=== PATIENT | male | born 1970 | race Caucasian/White ===

== ENCOUNTER → 2018-05-21 16:06 | Outpatient (CLI) | payer MEDICARE, SELFPAY ==
--- NOTE | 2018-05-21 16:13 | CT_ITS ---
STUDY: LOW DOSE CT LUNG CANCER SCREENING REASON FOR EXAM: Male, 48 years old. Lung cancer screening. 48 pack-year history of smoking (1.5 pack per day for 32 years). RADIATION DOSAGE (If Supplied By Facility): CTDIvol = ( 4.02 ) mGy, DLP = ( 142.45 ) mGycm TECHNIQUE: No contrast was administered. Low dose technique was utilized (average mAS-38 and kVp 120). 1.25 mm axial source images with a slice interval of 1.25-mm were reconstructed in lung windows. Coronal and sagittal 2-D MPR Nodule measured using lung windows on PACS and/or independent workstation with automated measurement of minimum and maximum diameter. Nodule measurement reported as average diameter rounded to the nearest whole number. Growth is defined as an increase ins size of greater than 1.5 mm. COMPARISON: None. FINDINGS: Total lung nodules (excluding granulomas): Right lower lobe posterior basilar noncalcified pulmonary nodule with a greatest dimension of 5.7 mm, series 2 image 147. Solid pulmonary nodule along the left major fissure series 2 image 113, 6 mm. Bilaterally a few additional tiny noncalcified solid pulmonary nodules are present. Emphysema: Mild apical paraseptal emphysema. Generalized hyperlucency with increased AP diameter of the chest suggesting mild underlying COPD. Endobronchial lesion: Aorta: Nondilated aorta, no atherosclerotic plaque. Coronary arteries: Minimal focus of calcification in the proximal LAD. Heart: Normal heart size without effusion. Pulmonary artery: Nondilated central pulmonary arteries. Mediastinal nodes: Normal esophagus. No acute mediastinal or hilar lymphadenopathy. Calcified lymph nodes of the right and left hilum consistent with old granulomatous disease and associated with several calcified pulmonary nodules. Other chest and abdominal findings: There is evidence of hepatic steatosis. Body wall soft tissues, supraclavicular soft tissues and osseous structures exhibit no acute process. CT/Low Dose CT Lung Screening IMPRESSION: There is evidence of old granulomatous disease with multiple calcified pulmonary nodules. There are a few noncalcified solid pulmonary nodules, the largest measuring approximately 6 mm in greatest dimension. Based on size criteria alone, solid pulmonary nodule greater than or equal to 6 mm but less than 8mm, ACR Lung RADS Category 3 (probably benign). Strong likelihood that the noncalcified pulmonary nodules are associated also with the old granulomatous disease, but surveillance imaging is recommended according to the ACR Lung RADS Criteria. Follow-up low dose CT chest screening is recommended in 6 months. IMPORTANT NOTES FOR USE: ACR Lung-RADS Version 1.0 Assessment Categories Release Date: December 30, 2013 Category: Coded 0-4 bases on nodule(s) with highest degree of suspicion. Negative screen is defined as categories 1 and 2; a positive screen is defined as categories 3 and 4. Category 3 and 4A nodules that are unchanged on interval CT should be coded as category 2, and individuals returned to screening in 12 months. Category 4X: Category 3 or 4 nodules with additional imaging findings that increase the suspicion of lung cancer, such as spiculation, GGN that doubles in size in 1 year, enlarged lymph notes, etc. Category Modifiers: S (significant finding unrelated to lung cancer) and C (prior history of treated lung cancer) may be added to the 0-4 Lung-RADS Electronically Signed: Americo Weir, at 18:07 EDT Tel , Service support ,
== END ==
DX: Z12.2 Encounter for screening for malignant neoplasm of respiratory organs (principal); R06.00 Dyspnea, unspecified; Z87.891 Personal history of nicotine dependence
CPT/HCPCS: G0297

== ENCOUNTER → 2018-07-20 16:24 | Outpatient (CLI) | payer MEDICARE, SELFPAY ==
[2018-07-20 18:01] LABS: Thyroid Stim Hormone (TSH) 1.49 uIU/mL (0.358-3.74)
== END ==
PROVIDERS: Referring Provider Clinical Nurse Specialist Acute Care; Visit Provider Clinical Nurse Specialist Acute Care
DX: R63.5 Abnormal weight gain (principal)
CPT/HCPCS: 36415; 82533; 84443

== ENCOUNTER → 2018-07-28 07:02 | Outpatient (CLI) | payer MEDICARE, SELFPAY ==
--- NOTE | 2018-07-28 07:45 | MRI_ITS ---
STUDY: MRI BRAIN WITHOUT CONTRAST REASON FOR EXAM: Male, 48 years old. Headaches. Right supraclinoid aneurysm. Memory changes. History of stroke and aseptic meningitis. TECHNIQUE: Standardized multiplanar fat and water weighted pulse sequences were obtained. COMPARISON: MRI of the brain with and without contrast 03/24/2016. FINDINGS: No restricted diffusion to suspect acute or subacute ischemic infarct. Mild ex vacuo dilatation in the anterior body and frontal horn of the right lateral ventricle secondary to parenchymal loss of the anterior body and head of the right caudate nucleus and parenchymal loss of the right lentiform nucleus. This is chronic and unchanged. The ventricles and cisterns are within normal limits. Small T2 FLAIR white matter hyperintensity foci in the white matter of both frontal lobes and in the left occipital lobe are nonspecific. They were present previously and are unchanged. Normal remaining basal ganglia. Normal thalami. There is no extra-axial fluid accumulation. Normal flow voids within the major intracranial circulation suggesting patency by spin echo criteria. Normal sella turcica, pituitary gland, infundibular stalk, optic chiasm and hypothalamus. Normal tectal plate and pineal gland. Normal midbrain, evy and medulla. Normal cerebellum. Normal basal cisterns. Normal bilateral temporal bones. Normal bilateral internal auditory canals. No demonstrated orbital abnormality, within the constraints of a routine brain study. Normal visualized paranasal sinuses. Normal calvarium and skull base. Normal visualized soft tissue structures. Normal visualized upper cervical spine. MRI/Brain without Contrast IMPRESSION: 1. No MRI evidence of acute or subacute ischemic infarct. 2. Nonspecific white matter T2 FLAIR hyperintensity in the frontal lobes and left occipital lobe. They have not changed in size or number. 3. Parenchymal loss of the anterior body and head of the right caudate nucleus and parenchymal loss of the right lentiform nucleus causing ex vacuo dilatation of the anterior body of the right lateral ventricle and the right frontal horn. 4. No interval change or new findings when compared to 03/24/2016. Electronically Signed: Aguilar Ramos MD at 9:31 EST , Service support ,
--- NOTE | 2018-07-28 07:45 | MRI_ITS ---
STUDY: MRA OF THE HEAD WITHOUT CONTRAST REASON FOR EXAM: Male, 48 years old. Headaches. Right supraclinoid aneurysm. Memory changes. History of stroke and aseptic meningitis. TECHNIQUE: 3-D [id number] (TOF) imaging was performed with MIPs. The study was performed unenhanced. COMPARISON: MRA of the head 03/24/2016. CTA head 05/14/2015. FINDINGS: There is a saccular aneurysm involving the right posterior communicating artery. The aneurysmal sac is laterally directed and measures approximately 5 mm long with a 3 mm wide fundus. There is origin of the right [employer] of the right internal carotid artery. This explains the absence of the right P1 segment. No other intracranial aneurysm. Normal right A1 segment. Developmentally absent left A1 segment. The anterior communicating artery is widely patent and provides the arterial flow to the left A2 segment and the rest of the left QUETA circulation. Nondominant left vertebral artery terminates directly into the left posterior inferior cerebellar artery. This is a developmental variation of normal. Dominant right vertebral artery is widely patent. Normal basilar artery and its branches set. Widely patent left P1 segment and the rest of the left [employer] circulation. Developmentally absent right P1 segment. MRI/MRA Head ONLY without Contrast IMPRESSION: 1. 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 This is unchanged in size or configuration. 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 2. Direct termination of the nondominant left vertebral artery into the left posterior inferior cerebellar artery (PICA). This is a developmental variation of normal and unchanged. 3. Developmentally absent left A1 segment. Widely patent anterior communicating artery provides the main collateral/arterial supply to the left QUETA territory from the right carotid artery. 4. No vaso-occlusive disease of the anterior and posterior intracranial circulation. 5. No interval change when compared to 03/24/2016. Electronically Signed: Aguilar Ramos MD at 10:15 EST , Service support ,
--- NOTE | 2018-07-28 08:30 | MRI_ITS ---
STUDY: MRA NECK WITHOUT CONTRAST REASON FOR EXAM: Male, 48 years old. Headaches. Right supraclinoid aneurysm. Memory changes. History of stroke and aseptic meningitis. TECHNIQUE: Source images were obtained, MIPs were performed. The study was performed unenhanced. COMPARISON: None. FINDINGS: RIGHT CAROTID ARTERIES: Normal right common carotid artery (CCA). Normal right internal carotid bulb. Normal origin of the right internal carotid (ICA) artery without a hemodynamically significant stenosis. Normal visualized cervical portion of the right internal carotid artery. Normal origin of the right external carotid artery (ECA). LEFT CAROTID ARTERIES: Normal left common carotid artery (CCA). Normal left internal carotid bulb. Normal origin of the left internal carotid (ICA) artery without a hemodynamically significant stenosis. Normal visualized cervical portion of the left internal carotid artery. Normal origin of the left external carotid artery (ECA). VERTEBRAL ARTERIES: Normal antegrade flow within the bilateral vertebral artery without a hemodynamically significant stenosis. The left vertebral artery is nondominant and terminates directly into the left posterior inferior cerebellar artery (PICA). MRI/MRA Neck without Contrast IMPRESSION: Normal bilateral cervical carotid and vertebral arteries. Electronically Signed: Aguilar Ramos MD at 10:29 EST , Service support ,
== END ==
PROVIDERS: Referring Provider Clinical Nurse Specialist Acute Care; Visit Provider Clinical Nurse Specialist Acute Care
DX: I67.1 Cerebral aneurysm, nonruptured (principal); R51 Headache
CPT/HCPCS: 70544; 70547; 70551

== ENCOUNTER → 2018-08-06 09:30 | Outpatient (CLI) | payer MEDICARE, SELFPAY ==
--- NOTE | 2018-08-07 10:54 | EEG ---
- Electroencephalogram Date of service 08/07/2018 History EEG is being done in this 48 yr M to rule out seizures EEG Description: This is an 18 channel EEG with 10-20 lead placement system. Bipolar montages, Referential and Circumferential montages were reviewed. Photic stimulation and Hyperventilation were performed. The posterior dominant rhythm is 9 HZ synchronous, symmetric, reacting to eye opening and closing. Photo stimulation elicited normal driving response but no abnormal photoparoxysmal response, Hyperventilation did not elicit any abnormal photoparoxysmal response. Sleep was identified. There is no abnormal background slowing noted. EKG artefact was noted during the record. There was no epileptiform discharges or electrographic seizures noted during this recording. EEG Interpretation This is a normal awake and asleep EEG. There is no epileptiform discharges or electrographic seizures noted during the record.
--- OUTSIDE RECORDS SUMMARY | 2018-09-29 13:36 | XMS RPT_ITS ---
:1970 Author Organization OHIP Care Team Providers Name Role Phone PAVEL TOUSSAINT Attending Unavailable SHAE OROPEZA CNP Primary Care Unavailable [facility] Attending Unavailable [facility] Referring Unavailable [facility] Primary Care Unavailable Romi Arellano Attending Unavailable Romi Arellano Referring Unavailable [facility] Primary Care Unavailable Romi Arellano Attending Unavailable Romi Arellano Referring Unavailable [facility] Primary Care Unavailable Shae Bernal Consulting Unavailable Romi Arellano Attending Unavailable Romi Arellano Referring Unavailable [facility] Primary Care Unavailable Shae Bernal Consulting Unavailable PROBLEMS PROBLEMS No Problem Records FoundPROCEDURES PROCEDURES No Procedure Records FoundRESULTS RESULTS ELECTROENCEPHALOGRAM Observed: 08/21/2018 Status: F Source: [place] 1:04 PM [facility] REPOSITORY [facility] Pulmonary Services/Neurology [address] [place] [address] MR#: [id number] Acct: [id number] Name: DMITRY ROBERTSON Rep #: [id number] : 1970 48 From: Elise Elliott MD Referring Dr: Rmoi Arellano, FITNESS LEADER Status: REG CLI Ordering Dr: Date: Location: PSN Sex: M C - Electroencephalogram Date of service 08/07/2018 History EEG is being done in this 48 yr M to rule out seizures EEG Description: This is an 18 channel EEG with 10-20 lead placement system. Bipolar montages, Referential and Circumferential montages were reviewed. Photic stimulation and Hyperventilation were performed. The posterior dominant rhythm is 9 HZ synchronous, symmetric, reacting to eye opening and closing. Photo stimulation elicited normal driving response but no abnormal photoparoxysmal response, Hyperventilation did not elicit any abnormal photoparoxysmal response. Sleep was identified. There is no abnormal background slowing noted. EKG artefact was noted during the record. There was no epileptiform discharges or electrographic seizures noted during this recording. EEG Interpretation This is a normal awake and asleep EEG. There is no epileptiform discharges or electrographic seizures noted during the record. 08/21/18 1304 <Electronically signed by Elise Elliott MD> Date Elise Elliott MD CC: FITNESS LEADER Romi Arellano; Donn Elliott MD; AICHA CHILD [facility] Date Dictated: 08/07/18 1054 Date Transcribed: 08/07/18 1054 Industrial [employer] Supervisor: CRISTINA Signed BRAIN WITHOUT Observed: 07/28/2018 Status: F Source: [place] CONTRAST 7:30 AM [facility] REPOSITORY [facility] Imaging Services [address] [place] [address] Brain without Contrast MR#: [id number] Acct: [id number] Name: DMITRY ROBERTSON Rep #: [id number] : 1970 M 48 From: Aguilar Ramos MD PCP: AICHA CHILD [facility] Status: REG CLI Study: Brain without Contrast Date of Exam: 07/28/18 Exam# [id number] Ordering Dr: Romi Arellano STUDY: MRI BRAIN WITHOUT CONTRAST REASON FOR EXAM: Male, 48 years old. Headaches. Right supraclinoid aneurysm. Memory changes. History of stroke and aseptic meningitis. TECHNIQUE: Standardized multiplanar fat and water weighted pulse sequences were obtained. COMPARISON: MRI of the brain with and without contrast 03/24/2016. FINDINGS: No restricted diffusion to suspect acute or subacute ischemic infarct. Mild ex vacuo dilatation in the anterior body and frontal horn of the right lateral ventricle secondary to parenchymal loss of the anterior body and head of the right caudate nucleus and parenchymal loss of the right lentiform nucleus. This is chronic and unchanged. The ventricles and cisterns are within normal limits. Small T2 FLAIR white matter hyperintensity foci in the white matter of both frontal lobes and in the left occipital lobe are nonspecific. They were present previously and are unchanged. Normal remaining basal ganglia. Normal thalami. There is no extra-axial fluid accumulation. Normal flow voids within the major intracranial circulation suggesting patency by spin echo criteria. Normal sella turcica, pituitary gland, infundibular stalk, optic chiasm and hypothalamus. Normal tectal plate and pineal gland. Normal midbrain, evy and medulla. Normal cerebellum. Normal basal cisterns. Normal bilateral temporal bones. Normal bilateral internal auditory canals. No demonstrated orbital abnormality, within the constraints of a routine brain study. Normal visualized paranasal sinuses. Normal calvarium and skull base. Normal visualized soft tissue structures. Normal visualized upper cervical spine. MRI/Brain without Contrast IMPRESSION: 1. No MRI evidence of acute or subacute ischemic infarct. 2. Nonspecific white matter T2 FLAIR hyperintensity in the frontal lobes and left occipital lobe. They have not changed in size or number. 3. Parenchymal loss of the anterior body and head of the right caudate nucleus and parenchymal loss of the right lentiform nucleus causing ex vacuo dilatation of the anterior body of the right lateral ventricle and the right frontal horn. 4. No interval change or new findings when compared to 03/24/2016. Electronically Signed: Aguilar Ramos MD at 9:31 EST , Service support , CC: BALTA Arellano; AICHA CHILD [facility] [employer] Supervisor: Signed MRA HEAD ONLY WITHOUT Observed: 07/28/2018 Status: F Source: [place] CONTRAST 7:30 AM [facility] REPOSITORY [facility] Imaging Services [address] [place] [address] MRA Head ONLY without Contrast MR#: [id number] Acct: [id number] Name: DMITRY ROBERTSON Rep #: [id number] : 1970 M 48 From: Aguilar Ramos MD PCP: AICHA CHILD [facility] Status: REG CLI Study: MRA Head ONLY without Contrast Date of Exam: 07/28/18 Exam# [id number] Ordering Dr: Romi Arellano STUDY: MRA OF THE HEAD WITHOUT CONTRAST REASON FOR EXAM: Male, 48 years old. Headaches. Right supraclinoid aneurysm. Memory changes. History of stroke and aseptic meningitis. TECHNIQUE: 3-D pdqa-in-rnkubz (TOF) imaging was performed with MIPs. The study was performed unenhanced. COMPARISON: MRA of the head 03/24/2016. CTA head 05/14/2015. FINDINGS: There is a saccular aneurysm involving the right posterior communicating artery. The aneurysmal sac is laterally directed and measures approximately 5 mm long with a 3 mm wide fundus. There is origin of the right NEMATOLOGIST of the right internal carotid artery. This explains the absence of the right P1 segment. No other intracranial aneurysm. Normal right A1 segment. Developmentally absent left A1 segment. The anterior communicating artery is widely patent and provides the arterial flow to the left A2 segment and the rest of the left QUETA circulation. Nondominant left vertebral artery terminates directly into the left posterior inferior cerebellar artery. This is a developmental variation of normal. Dominant right vertebral artery is widely patent. Normal basilar artery and its branches set. Widely patent left P1 segment and the rest of the left NEMATOLOGIST circulation. Developmentally absent right P1 segment. MRI/MRA Head ONLY without Contrast IMPRESSION: 1. 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 This is unchanged in size or configuration. 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 2. Direct termination of the nondominant left vertebral artery into the left posterior inferior cerebellar artery (PICA). This is a developmental variation of normal and unchanged. 3. Developmentally absent left A1 segment. Widely patent anterior communicating artery provides the main collateral/arterial supply to the left QUETA territory from the right carotid artery. 4. No vaso-occlusive disease of the anterior and posterior intracranial circulation. 5. No interval change when compared to 03/24/2016. Electronically Signed: Aguilar Ramos MD at 10:15 EST , Service support , CC: BALTA Arellano; AICHA SWANSON [employer] Supervisor: Signed MRA NECK WITHOUT Observed: 07/28/2018 Status: F Source: [place] CONTRAST 7:30 AM [facility] REPOSITORY [facility] Imaging Services [address] [place] [address] MRA Neck without Contrast MR#: [id number] Acct: [id number] Name: DMITRY ROBERTSON Rep #: [id number] : 1970 M 48 From: Aguilar Ramos MD PCP: AICHA SWANSON Status: REG CLI Study: MRA Neck without Contrast Date of Exam: 07/28/18 Exam# [id number] Ordering Dr: Romi Arellano STUDY: MRA NECK WITHOUT CONTRAST REASON FOR EXAM: Male, 48 years old. Headaches. Right supraclinoid aneurysm. Memory changes. History of stroke and aseptic meningitis. TECHNIQUE: Source images were obtained, MIPs were performed. The study was performed unenhanced. COMPARISON: None. FINDINGS: RIGHT CAROTID ARTERIES: Normal right common carotid artery (CCA). Normal right internal carotid bulb. Normal origin of the right internal carotid (ICA) artery without a hemodynamically significant stenosis. Normal visualized cervical portion of the right internal carotid artery. Normal origin of the right external carotid artery (ECA). LEFT CAROTID ARTERIES: Normal left common carotid artery (CCA). Normal left internal carotid bulb. Normal origin of the left internal carotid (ICA) artery without a hemodynamically significant stenosis. Normal visualized cervical portion of the left internal carotid artery. Normal origin of the left external carotid artery (ECA). VERTEBRAL ARTERIES: Normal antegrade flow within the bilateral vertebral artery without a hemodynamically significant stenosis. The left vertebral artery is nondominant and terminates directly into the left posterior inferior cerebellar artery (PICA). MRI/MRA Neck without Contrast IMPRESSION: Normal bilateral cervical carotid and vertebral arteries. Electronically Signed: Aguilar Ramos MD at 10:29 EST , Service support , CC: BALTA Arellano; AICHA CHILD [facility] Industrial [employer] Supervisor: Signed CORTISOL SERUM Collected: 07/20/2018 Status: F Source: [place] 4:29 PM [facility] REPOSITORY TYPE CODE TESTS RESULT OUT OF RANGE REFERENCE UNITS LAB L509.6000 3.09-22.40 ug/dL Normal CORTISOL 4.60 Result Comment: Adult (AM) 4.30 - 22.40 ug/dL Adult (PM) 3.09 - 16.66 ug/dL Performed By: #### L509.6000 #### [facility] [address] [place], [place], [address] THYROID STIM HORMONE Collected: 07/20/2018 Status: F Source: [place] (TSH) 4:29 PM [facility] REPOSITORY TYPE CODE TESTS RESULT OUT OF RANGE REFERENCE UNITS LAB L501.9520 0.358-3.74 uIU/mL Normal TSH 1.49 Performed By: #### L501.9520 #### [facility] [address] [place], [address] LUNG Observed: 05/21/2018 Status: F Source: [place] SCREENING 4:13 PM [facility] REPOSITORY [facility] Imaging Services [address] [place] [address] Lung Screening MR#: [id number] Acct: [id number] Name: DMITRY ROBERTSON Rep #: [id number] : 1970 M 48 From: Americo Weir MD PCP: AICHA CHILD [facility] Status: REG CLI Study: Low Dose CT Lung Screening Date of Exam: 05/21/18 Exam# [id number] [facility] ST[facility]Y: LOW DOSE CT LUNG CANCER SCREENING REASON FOR EXAM: Male, 48 years old. Lung cancer screening. 48 pack-year history of smoking (1.5 pack per day for 32 years). RADIATION DOSAGE (If Supplied By Facility): CTDIvol = ( 4.02 ) mGy, DLP = ( 142.45 ) mGycm TECHNIQUE: No contrast was administered. Low dose technique was utilized (average mAS-38 and kVp 120). 1.25 mm axial source images with a slice interval of 1.25- mm were reconstructed in lung windows. Coronal and sagittal 2-D MPR Nodule measured using lung windows on PACS and/or independent workstation with automated measurement of minimum and maximum diameter. Nodule measurement reported as average diameter rounded to the nearest whole number. Growth is defined as an increase ins size of greater than 1.5 mm. COMPARISON: None. FINDINGS: Total lung nodules (excluding granulomas): Right lower lobe posterior basilar noncalcified pulmonary nodule with a greatest dimension of 5.7 mm, series 2 image 147. Solid pulmonary nodule along the left major fissure series 2 image 113, 6 mm. Bilaterally a few additional tiny noncalcified solid pulmonary nodules are present. Emphysema: Mild apical paraseptal emphysema. Generalized hyperlucency with increased AP diameter of the chest suggesting mild underlying COPD. Endobronchial lesion: Aorta: Nondilated aorta, no atherosclerotic plaque. Coronary arteries: Minimal focus of calcification in the proximal LAD. Heart: Normal heart size without effusion. Pulmonary artery: Nondilated central pulmonary arteries. Mediastinal nodes: Normal esophagus. No acute mediastinal or hilar lymphadenopathy. Calcified lymph nodes of the right and left hilum consistent with old granulomatous disease and associated with several calcified pulmonary nodules. Other chest and abdominal findings: There is evidence of hepatic steatosis. Body wall soft tissues, supraclavicular soft tissues and osseous structures exhibit no acute process. CT/Low Dose CT Lung Screening IMPRESSION: There is evidence of old granulomatous disease with multiple calcified pulmonary nodules. There are a few noncalcified solid pulmonary nodules, the largest measuring approximately 6 mm in greatest dimension. Based on size criteria alone, solid pulmonary nodule greater than or equal to 6 mm but less than 8mm, ACR Lung RADS Category 3 (probably benign). Strong likelihood that the noncalcified pulmonary nodules are associated also with the old granulomatous disease, but surveillance imaging is recommended according to the ACR Lung RADS Criteria. Follow-up low dose CT chest screening is recommended in 6 months. IMPORTANT NOTES FOR USE: ACR Lung-RADS Version 1.0 Assessment Categories Release Date: December 30, 2013 Category: Coded 0-4 bases on nodule(s) with highest degree of suspicion. Negative screen is defined as categories 1 and 2; a positive screen is defined as categories 3 and 4. Category 3 and 4A nodules that are unchanged on interval CT should be coded as category 2, and individuals returned to screening in 12 months. Category 4X: Category 3 or 4 nodules with additional imaging findings that increase the suspicion of lung cancer, such as spiculation, GGN that doubles in size in 1 year, enlarged lymph notes, etc. Category Modifiers: S (significant finding unrelated to lung cancer) and C (prior history of treated lung cancer) may be added to the 0-4 Lung-RADS Electronically Signed: Americo Weir, at 18:07 EDT Tel , Service support , CC: AICHA CHILD [facility] Industrial [employer] Servicer Supervisor: Signed ALLERGIES ALLERGIES DATE TYPE / CODE NAME / CODE REACTION SEVERITY SOURCE 05/14/2015 Drug No Known Unknown [facility] Allergy/4160 Allergies/F00 [facility] [address]5564(SNOMED [id number](RXNOR Repository CT) M) ENCOUNTERS ENCOUNTERS ADMIT/DISCHARGE ACCOUNT NUMBER ADMITTING ENCOUNTER LOCATION SOURCE CLASS 08/06/2018 [id number] [facility] ding:PSN Repository 07/28/2018 [id number] [facility] ding:MRI Repository 07/20/2018 [id number] [facility] ding:LAB Repository 05/21/2018 [id number] Ambulatory Xochitl Xochitl [facility] ding:CT Repository 10/11/2017/10/11/19 [id number] Emergency BBuilding:DARCI Montiel [address] [facility] Repository PAYERS PAYERS ENCOUNTER GUARANTOR PAYER SUBSCRIBER SOURCE 08/06/2018 DMITRY Lang Primary DMITRY [address] [id number] Insurance:MEDICARE BOWERSDOB: Community [place] PART A [facility] [id number] Number: Repository [id number]: 330 [id number] [phone] () Date:2018-07-23 08/06/2018 Secondary NOT GIVENUNK [place] Insurance:SELF PAY [facility] Number: Effective Repository Date:2018-07-23 07/28/2018 DMITRY Lang Primary DMITRY [address] [id number] N Insurance:MEDICARE BOWERSDOB: [facility] [place] PART A [facility] [id number] Number: Repository [id number]: ([phone] [id number] [phone] () Date:2018-07-23 07/28/2018 Secondary NOT GIVENUNK [place] Insurance:SELF PAY [facility] Number: Effective Repository Date:2018-07-23 07/20/2018 DMITRY Lang Primary DMITRY [address]ust[address] [id number] N Insurance:MEDICARE BOWERSDOB: Community [place] PART A [facility] [id number] Number: Repository [id number]: ([phone] [id number] [phone] () Date:2018-07-20 07/20/2018 Secondary NOT GIVENUNK [place] Insurance:SELF PAY [facility] Number: Effective Repository Date:2018-07-20 05/21/2018 DMITRY Lang Primary DMITRY [address]ust[address] [id number] N Insurance:MEDICARE BOWERSDOB: Community [place] PART A [facility] [id number] Number: Repository [id number]: 330 [id number] [phone] () Date:2018-05-04 05/21/2018 Secondary NOT GIVENUNK [place] Insurance:SELF PAY [facility] Number: Effective Repository Date:2018-05-04 10/11/2017 [facility]MED[facility]ARE BOWERSDOB: [facility] [id number] N PART BPolicy Number: [id number] Repository [place] [id number] N [facility] Date:2017-10-11 [place] [address]Rro: [phone] [phone] [phone]: () Name:[facility] [phone] Administrators LLCPO ()Tel: [phone], [phone] () [place] [address]EN:
== END ==
PROVIDERS: Referring Provider Clinical Nurse Specialist Acute Care; Visit Provider Clinical Nurse Specialist Acute Care
DX: R56.9 Unspecified convulsions (principal); R51 Headache
CPT/HCPCS: 95819

== ENCOUNTER → 2020-06-23 09:02 | Outpatient (CLI) | payer MEDICARE, SELFPAY ==
[2020-06-23 09:47] LABS: Hemoglobin A1c 6.3 % (3.8-5.6)
[2020-06-23 10:03] LABS: AST(SGOT) 34 U/L (15-37); Alanine Aminotransfer ALT/SGPT 58 U/L (16-61); Alkaline Phosphatase 95 U/L (45-117); Anion Gap 5 (5-15); BUN 12 mg/dL (7-18); Calcium,Total 8.9 mg/dL (8.5-10.1); Chloride 102 mmol/L (98-107); Cholesterol 171 mg/dL (200); EST Glomerular Filtration Rate 69 mL/min (>60); Est Glom Filt Rate - Afr Amer 83 mL/min (>60); Globulin 4.2 g/dL (2.2-4.2); Glucose 128 mg/dL (74-106); High Density Lipoprotein 43 mg/dL; Potassium 4.1 mmol/L (3.5-5.1); Protein, Total 8.2 g/dL (6.4-8.2); Sodium Level 136 mmol/L (136-145); Triglycerides 170 mg/dL; Very Low Density Lipoprotein 34 mg/dL (5-40)
[2020-06-23 10:06] LABS: Vitamin D,25 Hydroxy 27.7 ng/mL
== END ==
DX: E78.5 Hyperlipidemia, unspecified (principal); E55.9 Vitamin D deficiency, unspecified; R73.03 Prediabetes
CPT/HCPCS: 36415; 80053; 80061; 82306; 83036

== ENCOUNTER → 2020-11-04 09:08 | Outpatient (CLI) | payer MEDICARE, SELFPAY ==
[2020-11-04 09:26] LABS: Absolute Lymphocyte Count 2.38 X10^3/uL (0.83-4.51); Absolute Neutrophil Count 3.9 X10^3/uL (2.0-7.7); Basophil# 0.06 X10^3/uL; Basophil% 0.8 % (0-1); Eosinophil# 0.37 X10^3/uL; Hematocrit 47.3 % (40-54); Hemoglobin 15.6 g/dL (13.0-16.5); Lymphocyte # 2.38 X10^3/ul (4.0); Lymphocyte % 32.3 % (19-41); Mean Corpuscular Volume 87.9 fL (80-94); Mean Platelet Vol. 10.3 fl (6.2-12.0); Monocyte# 0.65 X10^3/uL; Monocyte% 8.8 % (0-10); NRBC Flagged by Analyzer 0 % (0-5); Neutrophil # 3.89 X10^3/uL (2.7-7.7); Neutrophil % 52.8 % (47-70); Platelet Count 256 K/mm3 (150-450); RBC Distribution Width CV 13.9 % (11.6-14.6); RBC Distribution Width SD 44.5 fl (35.1-43.9); Red Blood Count 5.38 M/mm3 (4.6-6.2); White Blood Count 7.4 K/mm3 (4.4-11.0)
[2020-11-04 09:48] LABS: Vitamin D,25 Hydroxy 19.3 ng/mL
[2020-11-04 09:50] LABS: AST(SGOT) 23 U/L (15-37); Alanine Aminotransfer ALT/SGPT 50 U/L (16-61); Albumin, Serum 4.1 g/dL (3.2-5.0); Alkaline Phosphatase 96 U/L (45-117); Anion Gap 4 (5-15); BUN 16 mg/dL (7-18); BUN/Creat Ratio 13.9 RATIO (10-20); Calcium,Total 9.3 mg/dL (8.5-10.1); Chloride 108 mmol/L (98-107); Cholesterol 181 mg/dL (200); Creatinine, Serum 1.15 mg/dL (0.70-1.30); EST Glomerular Filtration Rate 72 mL/min (>60); Est Glom Filt Rate - Afr Amer 87 mL/min (>60); Glucose 125 mg/dL (74-106); High Density Lipoprotein 49 mg/dL; Potassium 4.6 mmol/L (3.5-5.1); Protein, Total 8.1 g/dL (6.4-8.2); Sodium Level 141 mmol/L (136-145); Triglycerides 124 mg/dL; Very Low Density Lipoprotein 25 mg/dL (5-40)
== END ==
PROVIDERS: Visit Provider Family Medicine
DX: R73.03 Prediabetes (principal); E55.9 Vitamin D deficiency, unspecified; E78.5 Hyperlipidemia, unspecified; R53.83 Other fatigue
CPT/HCPCS: 36415; 80053; 80061; 82306; 83036; 85025

== ENCOUNTER → 2020-11-05 15:22 | Outpatient (CLI) | payer MEDICARE, SELFPAY ==
[2020-11-05 16:39] LABS: T4 Free Direct 0.94 ng/dL (0.76-1.46); Thyroid Stim Hormone (TSH) 0.88 uIU/mL (0.358-3.74)
[2020-11-07 13:17] LABS: Thyroid Peroxidase AB < 9 IU/mL (0-34)
== END ==
LOC: LAB 15:24
PROVIDERS: Referring Provider Nurse Practitioner Adult Health; Visit Provider Nurse Practitioner Adult Health
DX: R42 Dizziness and giddiness (principal)
CPT/HCPCS: 36415; 84439; 84443; 86376

== ENCOUNTER → 2020-11-09 12:04 | Outpatient (CLI) | payer MEDICARE, SELFPAY ==
--- NOTE | 2020-11-09 12:05 | EKG12_ITS ---
Test Reason : Blood Pressure : / mmHG Vent. Rate : 065 BPM Atrial Rate : 065 BPM P-R Int : 158 ms QRS Dur : 086 ms QT Int : 386 ms P-R-T Axes : 019 027 039 degrees QTc Int : 401 ms Normal sinus rhythm Normal ECG Confirmed by PRESTON ROBBINS, FLY ([id number]), assistant film editor RAMANDEEP VENTURA ([id number]) on 11/10/2020 12:24:35 PM Referred By: [facility] Confirmed By:FLY JOHNSTON MD
== END ==
LOC: PSN 12:05
DX: R61 Generalized hyperhidrosis (principal)
CPT/HCPCS: 93005

== ENCOUNTER 2021-11-18 09:35 | Outpatient (CLI) | payer MEDICARE, SELFPAY ==
--- NOTE | 2021-11-18 09:39 | RAD_ITS ---
INDICATION: PAIN IN R HIP,SCIATICA R SIDE EXAMINATION/TECHNIQUE: X-RAY - XR Spine Lumbar 2 or 3 Views COMPARISON: None. FINDINGS: VERTEBRAE: Preserved vertebral body height. No fracture. No spondylolisthesis. Preservation of the normal lumbar lordosis. Mild facet arthropathy most prominent at L4-S1. DISCS: Mild degenerative disc disease at the L4-L5 and L5-S1 levels. Overall, the disc spaces are preserved. INCLUDED ABDOMEN: Included bowel gas pattern is non-obstructive. Atherosclerotic calcifications in the aorta. RAD/Lumbar Spine 2 or 3 Views IMPRESSION: No evidence of lumbar spinal fracture or spondylolisthesis. Mild degenerative disc disease and facet arthropathy most prominent at the L4-L5 and L5-S1 levels. Electronically Signed: Camden Payne, at 11:13 EDT ,
--- NOTE | 2021-11-18 09:40 | RAD_ITS ---
INDICATION: PAIN IN R HIP EXAMINATION/TECHNIQUE: X-RAY - BILATERAL XR Hips Bilateral with Pelvis when performed; Min 5 Views 5 VIEWS COMPARISON: None. FINDINGS: No acute fracture or subluxation. Mild bilateral femoral acetabular joint osteoarthritis. Joint spaces are otherwise intact. Femoral heads are well-seated within the acetabulum. Overlying bowel gas somewhat obscures assessment of the sacrum. Otherwise, the visualized abdomen and pelvis is unremarkable. Soft tissues are unremarkable. RAD/Hips B/L min 2 views w/ Pelvis IMPRESSION: Mild bilateral femoral acetabular joint osteoarthritis. Electronically Signed: Camden Payne, at 11:15 EDT ,
== END 2021-11-18 23:59 | disposition home or self-care (01) ==
LOC: RAD 09:37
PROVIDERS: Referring Provider Nurse Practitioner Adult Health; Visit Provider Nurse Practitioner Adult Health
DX: M25.551 Pain in right hip (principal); M54.31 Sciatica, right side
CPT/HCPCS: 72100; 73521

== ENCOUNTER 2021-12-28 15:30 | Outpatient (RCR) | payer MEDICARE, SELFPAY ==
--- NOTE | 2021-11-25 11:07 | HP.PTEVAL ---
Patient's Visit Information DMITRY ROBERTSON is a 51 year old M referred to Physical Therapy by WILBERTO AlvarezC with a diagnosis of R hip pain. Date of Evaluation: 11/24/21 Physical Therapist: Jeremiah Muse, PT, ATC - Visit Plan Frequency: 2-3x /Week Duration: 4 Weeks Plan: R IT band stretching, DTR, foam roller, R hip strengthening, core strengthening, and HEP - Subjective Pt reports he had several strokes several years ago which has effected his L LE. Pt believes this dmay have been what caused his R hip to eventually become sore. Pt reports his R hip has been progressively worsening over this time span to the place he is at now. Pt reports he has significant sleep difficulty secondary to pain. Pt reports pain constantly awakens him. Pt reports he did have xrays which revealed OA of the R hip. Pt reports he does have pain that radiates to his lateral thigh to mid portion. Pt reports sitting for prolonged periods of time increases his pain. Pt notes he has difficulty with stair negotiation secondary to pain. Pt also notes walking will sometines help and sometimes hurt his R hip pain. 3/10 pain at rest, 05/23 pain at rest - Pain R hip Pain Intensity (Out of 10): 3 Pain Intensity Range: 9 - Objective Neuro: B LE sensation is WNL to light touch. B patellar reflex 2/3. ROM: B LE's are WFL compared bilaterally. MMT: R hip flex= 12, abd= 8; L hip flex= 26, abd= 28 #F. Special Test: pos quadrant and BERRY test - Balance/Special Test Scores Lower Extremity Functional Score: 33 - Goals Goal 1:: Increase R hip strength x 1 grade to aid with stair negotiation Goal Time Frame: 4-6 Weeks Goal 2:: Increase R hip strength x 5-10 pounds to aid with IADL's Goal Time Frame: 4-6 Weeks Goal 3:: Decrease R hip pain x 50% to aid with sleep Goal Time Frame: 4-6 Weeks Goal 4:: I with HEP Goal Time Frame: 4-6 Weeks - Rehabilitation Potential Physical Therapy Diagnosis: Pt has R hip pain and weakness secondary to R greater hip trocanteric bursitis Rehabilitation Potential: Good - Anticipated Interventions Patient/Client Instruction: Educate patient on: Condition, Plan of Care For the Purpose of:: To improve self management Therapeutic Exercise to Include: Strength training, Endurance training, Balance training, Flexibilty training, Passive ROM, Active ROM, Dynamic Lumbar Stabilization For the Purpose of:: To decrease pain, To increase ROM, To improve muscle performance and motor function Manual Therapy Techniques to Include: Soft tissue mobilization For the Purpose of:: To decrease pain, To increase ROM Thank you for the opportunity to evaluate your patient. For Medicare and Medicare HMO plans, please review the plan of care and approve it. It will need to be FAXED BACK to us at [phone] for Medicare purposes. For Medicare only, by signing this I certify the plan of care. Please let me know if there are questions or concerns regarding this plan of care. Physician Signature: Date:
--- NOTE | 2021-12-28 16:10 | HP.PTREVAL_ITS ---
Jewell Amos, OPTOELECTRONICS ENGINEER-C, It has been my pleasure to treat DMITRY ROBERTSON over the last 8 visits for R hip pain. Please see the progress note below for an update on the physical therapy plan of care! Subjective: I am sore today. The stretches are helping, but no that much Objective/Function: R hip pain is 2/10. R hip flex strength is 13#F. Pt is I with HEP. Pt is showing gradual improvement towards Rx goals Plan Plan: Follow up in one month, or discharge if pt is doing well. Balance/Gait/Functional tests - Balance/Special Test Scores Lower Extremity Functional Score: 33 Goals Goal 1:: Increase R hip strength x 1 grade to aid with stair negotiation Goal Time Frame: 4-6 Weeks Goal Progress: Progressing Goal 2:: Increase R hip strength x 5-10 pounds to aid with IADL's Goal Time Frame: 4-6 Weeks Goal Progress: Progressing Goal 3:: Decrease R hip pain x 50% to aid with sleep Goal Time Frame: 4-6 Weeks Goal Progress: Progressing Goal 4:: I with HEP Goal Time Frame: 4-6 Weeks Goal Progress: Goal Met Anticipated Interventions Patient/Client Instruction: Educate patient on: Condition, Plan of Care For the Purpose of:: To improve self management Therapeutic Exercise to Include: Strength training, Endurance training, Balance training, Flexibilty training, Passive ROM, Active ROM, Dynamic Lumbar Stabilization For the Purpose of:: To decrease pain, To increase ROM, To improve muscle perf ormance and motor function Manual Therapy Techniques to Include: Soft tissue mobilization For the Purpose of:: To decrease pain, To increase ROM Please do not hesitate to contact me at [phone] by phone or if you have questions or concerns regarding this new plan of care! Sincerely, Jeremiah Muse, PT, ATC
--- NOTE | 2022-02-16 12:05 | HP.PT.NRP ---
DMITRY ROBERTSON was seen in my office for initial evaluation on 11/24/21. The following Plan of Care was established for this patient: Initial Frequency: 2-3x /Week Initial Duration: 4 Weeks Patient/Client Instruction: Educate patient on: Condition, Plan of Care For the Purpose of:: To improve self management Therapeutic Exercise to Include: Strength training, Endurance training, Balance training, Flexibilty training, Passive ROM, Active ROM, Dynamic Lumbar Stabilization For the Purpose of:: To decrease pain, To increase ROM, To improve muscle performance and motor function Manual Therapy Techniques to Include: Soft tissue mobilization For the Purpose of:: To decrease pain, To increase ROM This patient was last seen in our office . Pertinent comments regarding their Physical therapy will appear below: Pt was treated for 8 PT visits for R hip pain through the date of 12/28/21. Pt has not returned through this date and is discontinued at this time. At this point I will be discontinuing this patient from physical therapy. I would be happy to see this patient again in the future if found appropriate by the physician. Thank you! Jeremiah Muse, PT, ATC Balance/Gait/Functional tests - Balance/Special Test Scores Lower Extremity Functional Score: 33
== END 2021-12-28 19:00 | disposition home or self-care (01) ==
LOC: PT 15:30
PROVIDERS: Referring Provider Nurse Practitioner Adult Health; Visit Provider Nurse Practitioner Adult Health
DX: M25.551 Pain in right hip (principal); M54.31 Sciatica, right side
CPT/HCPCS: 97110; 97140; 97161; 97530

== ENCOUNTER 2023-08-02 10:11 | Outpatient (CLI) | payer MEDICARE, SELFPAY ==
--- NOTE | 2023-08-02 10:20 | MRI_ITS ---
STUDY: MRA OF THE HEAD WITHOUT CONTRAST REASON FOR EXAM: Male, 53 years old. follow-up nonruptured R PComm aneurysm TECHNIQUE: 3-D [id number]-[id number]-ilulva (TOF) imaging was performed with MIPs. The study was performed unenhanced. COMPARISON: MR brain August 02, 2023 . MRA brain July 28, 2018 FINDINGS: Normal bilateral petrous carotid arteries. Normal right cavernous carotid artery with a normal supraclinoid bifurcation. Normal left cavernous carotid artery with a normal supraclinoid bifurcation. Normal right A1 segments of the anterior cerebral artery. Normal left A1 segments of the anterior cerebral artery. Normal intact anterior communicating artery (ACOM). Normal bilateral A2 segments of the anterior cerebral arteries. Normal right M1 and M2 segments of the middle cerebral arteries, with a normal M1 bifurcation. Normal left M1 and M2 segments of the middle cerebral arteries, with a normal M1 bifurcation. Persistent origin right posterior communicating artery. There is an aneurysm laterally from its origin unchanged in size and configuration measuring 3 x 5 mm in AP and transverse dimensions. There is non-visualization of the left posterior communicating artery (PCOM). Right vertebral artery dominant. Left vertebral artery appears to terminate as the PICA. Normal basilar artery with a normal basilar bifurcation. The visualized bilateral superior cerebellar (SCA) arteries are normal. Normal bilateral P1, P2 and visualized P3 segments of the posterior cerebral arteries. There is no demonstrated aneurysm of the [place]. There is no major vessel occlusion or hemodynamically significant stenosis. There is no demonstrated abnormality of the visualized brain. 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
--- NOTE | 2023-08-02 10:20 | MRI_ITS ---
STUDY: MRI BRAIN WITH AND WITHOUT CONTRAST REASON FOR EXAM: Male, 53 years old. dementia; Hx viral menigitis 2004; Hx CVA; epileps TECHNIQUE: Standardized multiplanar fat and water weighted pulse sequences were obtained. IV 24 cc clariscan was administered for the contrast portion of the examination. COMPARISON: MR brain July 28, 2018 FINDINGS: There is mild cerebral atrophy with widening of the extra-axial spaces and ventricular dilatation. There are a limited number of small white matter hyperintensities, distributed throughout the deep white matter tracts of the cerebral hemispheres, consistent with mild chronic white matter ischemic changes. There is no evidence for recent intracranial ischemia or other cause of cytotoxic edema on diffusion weighted imaging (DWI). There are several white matter lesions throughout the thomson radiata measuring several mm each unusual for age. Remote lacunar infarcts noted within the right caudate and left thalamus. There is no extra-axial fluid accumulation. Normal flow voids within the major intracranial circulation suggesting patency by spin echo criteria. Normal venous enhancement. There is no enhancing intra-axial or extra-axial abnormality. Normal sella turcica, pituitary gland, infundibular stalk, optic chiasm and hypothalamus. Normal tectal plate and pineal gland. Normal midbrain, evy and medulla. Normal cerebellum. Normal basal cisterns. Normal bilateral temporal bones. Normal bilateral internal auditory canals. No demonstrated orbital abnormality, within the constraints of a routine brain study. Normal visualized paranasal sinuses. Normal calvarium and skull base. Normal visualized soft tissue structures. Normal visualized upper cervical spine. MRI/Brain W/WO Contrast IMPRESSION: Several nonspecific white matter lesions in the thomson radiata unusual for age. Differential considerations include infectious and inflammatory disease, demyelination, microangiopathic changes except. . Remote lacunar infarcts as above. No abnormal enhancement or restricted diffusion to suggest active disease. Electronically Signed: Juan F Lund MD at 21:09 EST ,
== END 2023-08-02 23:59 | disposition home or self-care (01) ==
PROVIDERS: Visit Provider Psychiatry & Neurology Neurology
DX: I67.1 Cerebral aneurysm, nonruptured (principal); F03.90 Unspecified dementia, unspecified severity, without behavioral disturbance, psychotic disturbance, mood disturbance, and anxiety; G40.909 Epilepsy, unspecified, not intractable, without status epilepticus; Z86.61 Personal history of infections of the central nervous system; Z86.73 Personal history of transient ischemic attack (TIA), and cerebral infarction without residual deficits
CPT/HCPCS: 70544; 70553; A9575

== ENCOUNTER → 2025-02-19 | Outpatient (CLI) | payer MEDICARE, SELFPAY ==
[2025-02-19 11:17] LABS: Absolute Neutrophil Count 3.4 X10^3/uL (2.0-7.7); Basophil# 0.08 X10^3/uL; Basophil% 1.3 % (0-1); Eosinophil# 0.32 X10^3/uL; Eosinophils% 5.2 % (0-5); Hemoglobin 15.3 g/dL (13.0-16.5); Mean Corpuscular Hgb 29.3 pg (27.0-32.0); Mean Platelet Vol. 10.1 fl (6.2-12.0); Monocyte# 0.42 X10^3/uL; Monocyte% 6.9 % (0-10); NRBC Flagged by Analyzer 0 % (0-5); Neutrophil # 3.39 X10^3/uL (2.7-7.7); Neutrophil % 55.3 % (47-70); Platelet Count 227 K/mm3 (150-450); RBC Distribution Width CV 13.6 % (11.6-14.6); Red Blood Count 5.23 M/mm3 (4.6-6.2); White Blood Count 6.1 K/mm3 (4.4-11.0)
[2025-02-19 11:41] LABS: Hemoglobin A1c 6.6 % (<=5.6)
[2025-02-19 12:00] LABS: ALB/GLOB Ratio 1.3 RATIO (0.9-2.4); AST(SGOT) 24 U/L (<=37); Alanine Aminotransfer ALT/SGPT 35 U/L (<=46); Albumin, Serum 4.4 g/dL (3.5-5.0); Alkaline Phosphatase 99 U/L (40-129); Anion Gap 10 (5-15); BUN 20 mg/dL (4-19); BUN/Creat Ratio 19.2 RATIO (10-20); Calcium,Total 9.3 mg/dL (7.6-11.0); Carbon Dioxide 22.8 mmol/L (21.0-32.0); Chloride 106 mmol/L (98-108); Cholesterol 205 mg/dL (<=200); Creatinine, Serum 1.02 mg/dL (0.70-1.20); EST Glomerular Filtration Rate 88 (>60); Globulin 3.5 g/dL (2.2-4.2); Glucose 128 mg/dL (70-99); High Density Lipoprotein 45 mg/dL; Low Density Lipoprotein Calc. 133 mg/dL; Potassium 4.6 mmol/L (3.3-5.1); Protein, Total 7.9 g/dL (5.9-8.4); Sodium Level 139 mmol/L (133-145); Total Bilirubin 0.35 mg/dL (0.00-1.30); Triglycerides 135 mg/dL; Very Low Density Lipoprotein 27 mg/dL (5-40)
[2025-02-19 12:19] LABS: Thyroid Stim Hormone (TSH) 0.986 uIU/mL (0.300-4.200)
[2025-02-19 12:45] LABS: PSA,Total - Annual Screen 0.29 ng/mL (0.02-4.00); Vitamin B12 512 pg/mL (180-914); Vitamin D,25 Hydroxy 15.8 ng/mL (30-100)
[2025-02-23 12:07] LABS: Testosterone, % Free 3.12 % (1.50-4.20); Testosterone, Free 6.86 ng/dL (5.00-21.00); Testosterone, Total 220 ng/dL (264-916)
== END | disposition home or self-care (01) ==
LOC: VSLAB 10:41
DX: Z13.1 Encounter for screening for diabetes mellitus (principal); R53.83 Other fatigue; Z12.5 Encounter for screening for malignant neoplasm of prostate; Z13.220 Encounter for screening for lipoid disorders; R73.03 Prediabetes; E55.9 Vitamin D deficiency, unspecified; E78.5 Hyperlipidemia, unspecified
CPT/HCPCS: 36415; 80053; 80061; 82306; 82607; 83036; 84153; 84402; 84403; 84443; 85025; G0103

== ENCOUNTER 2025-02-27 14:31 | Emergency (ER) | payer MEDICARE, SELFPAY ==
[2025-02-27 14:32] VITALS: BP 134/81; PULSE 73; RESP 16; TEMP 36.4; O2SAT 99; BMI 34.9
--- NOTE | 2025-02-27 15:12 | CT_ITS ---
PROCEDURE: CT HEAD WITHOUT CONTRAST AND CTA HEAD W/WO CONTRAST 02/27/2025 REASON FOR EXAM: HX OF BRAIN ANEURYSM, HEADACHE TECHNIQUE: CT head was performed without IV contrast. CTA head was performed with IV contrast. Multiplanar reformats as well as MIP and 3D reconstructions were generated. IV contrast: Isovue 370 VOLUME: 100mL RADIATION DOSE SUMMARY: CTDlvol: 44.99+ 13.44+ 21.86 mGy DLP: 1326.91 mGycm One or more dose reduction techniques were used (e.g., Automated exposure control, adjustment of the mA and/or kV according to patient size, use of iterative reconstruction technique). COMPARISON: 08/02/2023 and prior FINDINGS: CT HEAD: Slight limitation related to lack of noncontrast coronal and sagittal reformats. Cerebrum: No definite acute territorial infarct, visible acute intracranial hemorrhage, or visible mass. Similar small remote lacunar infarcts in the RIGHT caudate, RIGHT basal ganglia and LEFT thalamus. Cerebellum/brainstem: Unremarkable. Note slight limitation due to beam hardening artifact. Ventricles/extra-axial spaces: Similar relative ex vacuo dilatation of the RIGHT lateral ventricle.. Paranasal sinuses/mastoid air cells: Patchy opacification of the anterior ethmoid air cells, [id number]-RIGHT. Mucosal thickening in the EBUW-duvzurn-vfog-RIGHT frontal recesses with opacification on the LEFT. Scalp/calvarium: Unremarkable. Other: Absence of all maxillary and most mandibular teeth with a remaining probably impacted LEFT mandibular molar. CTA HEAD: Exam slightly limited by venous contamination. Anterior circulation: Patent. Similarly hypoplastic or absent LEFT A1 segment, normal variant. Posterior circulation: Patent. Diminutive LEFT vertebral artery again essentially terminates as PICA. Redemonstrated origin of the RIGHT TERMINAL GAUGER Aneurysms: None grossly similar saccular 5 x 4 x 3 mm aneurysm arising from the RIGHT posterior communicating artery origin laterally since 07/28/2018 allowing for the difference in modality. Venous structures: Grossly unremarkable within limits of nondedicated technique. CT/CTA Head W/WO Contrast IMPRESSION: 1. No visible acute noncontrast intracranial findings. If concern persists, re commend MRI. 2. Similar 5 mm saccular aneurysm arising from the RIGHT posterior communicatin g artery origin laterally since 07/24/2018 allowing for the difference in modality. Recommend nonemergent clinical follow -up such as neurosurgical or neuro-IR consultation. 3. No high-grade stenosis or large vessel occlusion identified. 4. Frontoethmoid paranasal sinus disease. 5. Additional description as above. Reading Location: [id number]
[2025-02-27] MEDS: Metoclopramide 10 MG/2 ML Vial IV (15:35)
[2025-02-27] MEDS: 0.9% Normal Saline (1000mL) 1,000 ML 999 ML IV (15:35)
[2025-02-27] MEDS: Acetaminophen 500 MG Tablet 1000 MG PO (15:35)
--- NOTE | 2025-02-27 15:45 | EX.ED.DYSGE1 ---
HPI History of Present Illness Chief Complaint: Headache Narrative Narrative: Patient is a 54-year-old male with past medical history of traumatic brain injury, CVA, migraine headache, subarachnoid hemorrhage, aneurysm, seizure who presented to the emergency department chief complaint headache. According to the patient he woke up this morning and noted that he had a headache that slowly progressively worsened throughout the day prompting him to come here for further evaluation management. He states that he had vomited earlier in the day. He just states that he does not feel well overall. Denies any sick contacts [facility] Medical History TBI (traumatic brain injury) CVA (cerebral vascular accident) Endocarditis Meningitis Migraine Subarachnoid hemorrhage Home Medications ?Medication ?Instructions ?Recorded ?Last Taken ?Type lisinopril 10 mg tablet 10 mg PO DAILY #30 tabs 10/26/22 Unknown Rx ondansetron 4 mg disintegrating 4 mg PO Q6H PRN nausea and 02/27/25 Unknown Rx tablet vomiting #30 tabs Allergy/AdvReac Type Severity Reaction Status Date / Time No Known Allergies Allergy Verified 02/27/25 14:35 Family History Other COPD (chronic obstructive pulmonary disease) Diabetes History of blood clots Skin cancer Surgical History History of skin graft Social History Smoking Status: Current every day smoker tobacco type: e-cigarettes substance use type: marijuana ROS ROS ED ROS Narrative Constitutional: Complains of headache as noted above denies fevers or chills Eyes: Denies change in vision double vision blurry vision Cardiovascular: Denies chest pain Respiratory: Denies shortness of breath Abdomen: Denies abdominal pain nausea vomit diarrhea : Denies urinary symptoms Neurological: Denies any numbness, wheeze, tingling Musculoskeletal: Denies back pain Skin: Denies rashes or lesions EXAM Physical Exam Narrative Exam Narrative: General: Patient lying in bed rest comfortably do not appear to be in any acute distress Head: Atraumatic, normocephalic Eyes: PERRL bilaterally, EOMI bilateral, no conjunctival injection noted Neck: Soft, supple, trachea midline Cardiovascular: Regular rate and rhythm no murmurs gallops rubs noted Respiratory: Clear to auscultation bilaterally no rales rhonchi or wheezes noted Abdomen: Soft, nondistended, tender to palpation Extremities: +5/5 strength noted in the bilateral upper and lower extremities, radial pulses +2/4 in the bilateral extremities, no pedal edema on exam Neurological: Patient follow commands knew that he was at [facility] year is 2024. Patient has residual left lower extremity weakness from his previous strokes Skin: Warm, dry, tact no rashes or lesions noted Const Vital Signs: 02/27/25 14:32 02/27/25 15:55 02/27/25 16:18 Temperature 97.6 F L Temperature Source Oral Pulse Rate 73 Respiratory Rate 16 Blood Pressure 134/81 H 135/91 H Blood Pressure Mean 98 105 Pulse Ox 99 96 Oxygen Delivery Method Room Air MDM MDM MDM Narrative Medical decision making narrative: Patient is a 54-year-old male who presents to the emergency department chief complaint of headache. On the differential diagnose includes not limited to intracranial hemorrhage, migraine headache, cluster headache. Once the workup is obtained reviewed he will be reevaluated. Patient will be given IV fluids Reglan Tylenol. Patient CBC reviewed showed no evidence leukocytosis white blood count normal 10.5, he was 15.9, platelet count of 223. Patient sodium was 139, potassium normal 4.2, creatinine normal at 1.03. Patient's CTA head is still pending. Patient on reevaluation is feeling much improved. Patient case will be signed out to the oncoming provider to follow-up on CTA head. Pending this is normal patient will be discharged home see on-call provider note for ultimate details of disposition. Lab Data Labs: Laboratory Results - last 24 hr 02/27/25 15:40 WBC 10.5 RBC 5.38 Hgb 15.9 Hct 45.3 MCV 84.2 MCH 29.6 MCHC 35.1 RDW Std Deviation 41.2 RDW Coeff of Bebo 13.4 Plt Count 223 MPV 10.4 Immature Gran % (Auto) 0.600 Neut % (Auto) 84.6 H Lymph % (Auto) 9.6 L Dewitt % (Auto) 3.9 Eos % (Auto) 0.7 Baso % (Auto) 0.6 Absolute Neuts (auto) 8.9 H Absolute Lymphs (auto) 1.00 Nucleated RBC % 0 Sodium 139 Potassium 4.2 Chloride 103 Carbon Dioxide 22.3 Anion Gap 13 BUN 19 Creatinine 1.03 Estim Creat Clear Calc 120.44 Est GFR (MDRD) Non-Af 87 BUN/Creatinine Ratio 18.1 Glucose 139 H Calcium 9.7 Discharge Plan Triage Chief Complaint: Headache ED Provider: Erik Serna Dx/Rx/DC Orders Clinical Impression: Headache, migraine Prescriptions: New ondansetron 4 mg tablet,disintegrating 4 mg PO Q6H PRN (Reason: nausea and vomiting) Qty: 30 0RF No Action lisinopril 10 mg tablet 10 mg PO DAILY Qty: 30 5RF Primary Care Provider: Maryellen Christian Referrals: Maryellen Christian, BALLET MASTER/MISTRESS-C [Primary Care Provider] - Activity Restrictions/Additional Instructions: Follow-up with your doctor in the outpatient setting. Rotate Tylenol and ibuprofen [id number] for headache control ensure that you are adequately hydrating. Use Zofran as needed for nausea this was sent to your pharmacy. When you rotate the 2 medications you can take something every 3 hours with max dose Tylenol in 24 hours 4000 mg. Max dose of ibuprofen in 24 hours 3200 mg. Return with any other concerns Print Language: [place]
[2025-02-27 15:55] VITALS: O2SAT 96
[2025-02-27 16:05] LABS: Absolute Neutrophil Count 8.9 X10^3/uL (2.0-7.7); Basophil# 0.06 X10^3/uL; Basophil% 0.6 % (0-1); Eosinophil# 0.07 X10^3/uL; Eosinophils% 0.7 % (0-5); Hematocrit 45.3 % (40-54); Hemoglobin 15.9 g/dL (13.0-16.5); Lymphocyte % 9.6 % (19-41); Mean Corp Hgb Conc 35.1 g/dL (32-36); Mean Corpuscular Hgb 29.6 pg (27.0-32.0); Mean Corpuscular Volume 84.2 fL (80-94); Mean Platelet Vol. 10.4 fl (6.2-12.0); Monocyte# 0.41 X10^3/uL; Monocyte% 3.9 % (0-10); NRBC Flagged by Analyzer 0 % (0-5); Neutrophil # 8.87 X10^3/uL (2.7-7.7); Neutrophil % 84.6 % (47-70); Platelet Count 223 K/mm3 (150-450); RBC Distribution Width CV 13.4 % (11.6-14.6); RBC Distribution Width SD 41.2 fl (35.1-43.9); Red Blood Count 5.38 M/mm3 (4.6-6.2); White Blood Count 10.5 K/mm3 (4.4-11.0)
[2025-02-27 16:18] VITALS: BP 135/91
[2025-02-27 16:38] LABS: Anion Gap 13 (5-15); BUN 19 mg/dL (4-19); BUN/Creat Ratio 18.1 RATIO (10-20); Calcium,Total 9.7 mg/dL (7.6-11.0); Carbon Dioxide 22.3 mmol/L (21.0-32.0); Chloride 103 mmol/L (98-108); Creatinine, Serum 1.03 mg/dL (0.70-1.20); EST Glomerular Filtration Rate 87 (>60); Estimated Creatinine Clearance 120.44 ml/min (50-250); Glucose 139 mg/dL (70-99); Potassium 4.2 mmol/L (3.3-5.1); Sodium Level 139 mmol/L (133-145)
[2025-02-27 17:55] VITALS: BP 135/91
== END 2025-02-27 18:30 | disposition home or self-care (01) ==
PROVIDERS: Emergency Provider Emergency Medicine; Referring Provider Emergency Medicine; Visit Provider Emergency Medicine
DX: G43.909 Migraine, unspecified, not intractable, without status migrainosus (principal); I69.354 Hemiplegia and hemiparesis following cerebral infarction affecting left non-dominant side; F17.210 Nicotine dependence, cigarettes, uncomplicated; F12.90 Cannabis use, unspecified, uncomplicated; Z87.820 Personal history of traumatic brain injury
CPT/HCPCS: 70496; 80048; 85025; 96361; 96374; 99285; Q9967

== ENCOUNTER → 2025-03-11 | Outpatient (CLI) | payer MEDICARE, SELFPAY ==
[2025-03-11 11:54] LABS: Follicle Stimulating Hormone 10.1 mIU/mL
[2025-03-16 14:08] LABS: PROLACTIN 9.3 ng/mL (3.6-25.2); Testosterone, % Free 3.39 % (1.50-4.20); Testosterone, Free 9.76 ng/dL (5.00-21.00)
== END | disposition home or self-care (01) ==
LOC: LAB 10:08
DX: R89.1 Abnormal level of hormones in specimens from other organs, systems and tissues (principal)
CPT/HCPCS: 36415; 83001; 83002; 84146; 84402; 84403

== ENCOUNTER → 2025-04-01 | Outpatient (CLI) | payer MEDICARE, SELFPAY ==
--- NOTE | 2025-04-01 14:11 | MRI_ITS ---
PROCEDURE: MR BRAIN W/WO CONTRAST 04/01/2025 REASON FOR EXAM: MIGRAINES, NON INTRACTABLE TECHNIQUE: Multiplanar and multisequential MRI of the brain was performed without and with IV gadolinium based contrast administration. CONTRAST: Clariscan VOLUME: 20 mL COMPARISON: Brain MRA 08/02/2023. MRI 08/02/2023. FINDINGS: No regions of abnormal restricted diffusion to indicate recent infarct. No intracranial mass lesion or pathologic enhancement. No evidence of acute intracranial hemorrhage, extra-axial collection, hydrocephalus, or other acute abnormality. Mild generalized brain parenchymal volume loss. Similar appearance of moderate small-vessel ischemic-gliotic changes throughout the supratentorial white matter, with multiple small foci of chronic lacunar infarct involving the bilateral basal ganglia, including the bilateral thalami, right putamen, and few small foci within the inferior right cerebellar hemisphere. Major intracranial vascular flow voids appear preserved. 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 Absent [place] ocular lenses. Mild peripheral mucosal thickening throughout the paranasal sinuses. No mastoid effusions. MRI/Brain W/WO Contrast IMPRESSION: No acute intracranial abnormality. No interval new or acute infarct. Stable appearing moderate chronic small-vessel ischemic changes with several ol d lacunar infarcts involving the bilateral basal ganglia and right cerebellar hemisphere. Grossly stable small 4-5 mm aneurysm at the right ICA terminus/PCOM origin. Reading Location: [id number]
== END | disposition home or self-care (01) ==
DX: G43.909 Migraine, unspecified, not intractable, without status migrainosus (principal)
CPT/HCPCS: 70553; A9575

== ENCOUNTER → 2025-04-16 | Outpatient (CLI) | payer MEDICARE, SELFPAY ==
--- NOTE | 2025-04-16 15:56 | CT_ITS ---
PROCEDURE: ABDOMEN/PELVIS WITH CONTRAST, 04/16/2025 REASON FOR EXAM: LLQ PAIN TECHNIQUE: CT abdomen and pelvis was performed with IV contrast. Multiplanar reformats were generated. Oral contrast administered. IV contrast: Isovue 370 VOLUME: 94mL RADIATION DOSE SUMMARY: CTDlvol: 9.97+ 23.95 mGy DLP: 1445.56 mGycm One or more dose reduction techniques were used (e.g., Automated exposure control, adjustment of the mA and/or kV according to patient size, use of iterative reconstruction technique). COMPARISON: None FINDINGS: Mild/moderate limitation through the lung bases and far upper abdomen. Note that the exam is slightly limited by essentially late arterial phase of contrast timing with poorly opacified hepatic veins. Lung bases: Granuloma in the RIGHT lung base 9 x 6 mm noncalcified nodule in the RIGHT lung base. 5 x 4 mm nodule in the LEFT lung base. Mild atelectasis/scarring.. Liver: Steatosis. Spleen: Granulomas. 13.7 cm coronal. Gallbladder: Unremarkable. Pancreas: Unremarkable. Adrenals: Unremarkable. Kidneys: Unremarkable. Bowel: Unremarkable. Normal caliber appendix. Lymph nodes: Unremarkable. Vasculature: Atherosclerosis.. Peritoneum: Unremarkable. Bladder: Underdistended and suboptimally evaluated, grossly unremarkable. Reproductive Organs: Unremarkable. Body Wall: Unremarkable. Bones: Unremarkable. CT/Abdomen/Pelvis WITH Contrast IMPRESSION: 1. No acute findings. 2. Indeterminate bibasilar pulmonary nodules up to 7.5 mm average axial diamete r, suboptimally visualized due to motion artifact. These warrant clinical follow-up. Recommend CT chest unless recently performed elsewhere. 3. Diffuse hepatic steatosis and mild splenomegaly. Correlate for clinical and laboratory evidence of chronic liver disease. 4. Additional description as above. Reading Location: [id number]
== END | disposition home or self-care (01) ==
LOC: CT 15:55
DX: R10.32 Left lower quadrant pain (principal)
CPT/HCPCS: 74177; Q9967

== ENCOUNTER → 2025-05-01 | Outpatient (CLI) | payer MEDICARE, SELFPAY ==
--- OUTSIDE RECORDS SUMMARY | 2025-05-01 07:04 | XMS RPT_ITS | CCD ---
Author Organization [facility] Care Team Providers Care Job Spotter Name Role Phone PAVEL TOUSSAINT Unavailable Unavailable ALBA OROPEZA Unavailable Unavailable Unavailable Primary Care Provider Unavailabl e Clinic, Julianne Bunch Primary Care Provider Un available HOWIE NUÑEZ JR Referring Unavailable Clinic, [facility] Primary Care Provider Un available SELF Referring Unavailable Beam OFFICE SERVICES CLERK-C, Zebulun Primary Care Provider Beam OFFICE SERVICES CLERK-C, Zebulun Attending Provider Dr. Erik Serna DO Referring Provider Dr. Erik Serna DO Emergency Provider Dr. Erik Serna DO Attending Provider Beam OFFICE SERVICES CLERK-C, Zebulun Referring Provider Beam OFFICE SERVICES CLERK, Zebulun Unavailable Beam VSC, Zebulun Primary Care Unavailable Beam VSC, Zebulun Attending Unavailable Beam VSC, Zebulun Referring Unavailable Beam VSC, Zebulun Referring Unavailable Beam VSC, Zebulun Primary Care Unavailable Beam VSC, Zebulun Attending Unavailable Beam VSC, Zebulun Referring Unavailable Beam VSC, Zebulun Primary Care Unavailable Beam VSC, Zebulun Attending Unavailable Beam VSC, Zebulun Primary Care Unavailable Erik Serna Attending Unavailable Erik Serna Referring Unavailable Beam VSC, Zebulun Primary Care Unavailable Beam, Elie Attending Unavailable Beam VSC, Zebulun Primary Care Unavailable Beam VSC, Zebulun Attending Unavailable Medications Current Medications Medication Drug Class(es) Dates Sig (Normalized) Sig (Original) cefadroxil 500 mg oral capsule (1 source) Cephalosporin Antibacterial Start: 11-02-2024 End: 03-06-2025 take 1 capsule by mouth twice daily cefADROxil (DURICEF) 500 mg capsule Indications: Finger infection Take 1 capsule by mouth two times a day for 5 days. 10 capsule 11/02/2024 11/07/2024 Active lisinopril 10 mg oral tablet (6 sources) Angiotensin Converting Enzyme Inhibitor Start: 10-26-2022 take 1 tablet by mouth once daily Lisinopril 10 mg tablet Active 10 mg PO DAILY 30 October 26, 2022 1:00am mupirocin 0.02 mg/mg topical ointment (1 source) RNA Synthetase Inhibitor Antibacterial Start: 11-02-2024 End: 11-09-2024 mupirocin (BACTROBAN) 2 % ointment Indications: Finger infection Apply 1 application to affected area three times a day for 7 days. 22 g 11/02/2024 11/09/2024 Active ondansetron 4 mg disintegrating oral tablet (4 sources) Serotonin-3 Receptor Antagonist Start: 02-27-2025 take 1 tablet by mouth every six hours as needed for nausea and vomiting Ondansetron 4 mg tablet,disintegratin g Active 4 mg PO EVERY 6 HOURS as needed for nausea and vomiting 30 February 27, 2025 12:00am pseudoephedrine hydrochloride 30 mg oral tablet (1 source) alpha-Adrenergic Agonist Start: 07-02-2024 End: 07-07-2024 take 1 tablet by mouth every four hours pseudoephedrine (SUDAFED) 30 mg tablet Indications: Viral sinusitis , Sinus pressure Take 1 tablet by mouth every 4 hours for 5 days. 30 tablet 07/02/2024 07/07/2024 Active Completed/Discontinued Medications Medication Drug Class(es) Dates Sig (Normalized) Sig (Original) aspirin 81 mg delayed release oral tablet (8 sources) Platelet Aggregation Inhibitor, Nonsteroidal Anti-inflammatory Drug Start: 05-15-2015 End: 10-26-2022 take 1 tablet by mouth once daily Aspirin 81 MG tablet Discontinued 81 mg PO DAILY@0800 30 May 15, 2015 12:00am October 26, 2022 10:22am atorvastatin 80 mg oral tablet (8 sources) HMG-CoA Reductase Inhibitor Start: 05-15-2015 End: 10-26-2022 take 1 tablet by mouth at bedtime Atorvastatin 80 MG tablet Discontinued 80 mg PO AT BEDTIME 03 08May 15, 2015 12:00am October 26, 2022 10:22am fluticasone propionate 0.05 mg/actuat metered dose nasal spray (2 sources) Corticosteroid Start: 07-02-2024 End: 11-02-2024 take 1 spray(s) nasal route twice daily fluticasone (FLONASE ALLERGY RELIEF) 50 mcg/actuation nasal spray Indications: Viral sinusitis , Sinus pressure Use 1 [place] in each nostril two times a day. 1 Each 07/02/2024 11/02/2024 Discontinued (Other) 24 hr nicotine 0.875 mg/hr transdermal system (8 sources) Cholinergic Nicotinic Agonist Start: 05-15-2015 End: 10-26-2022 apply 21 mg transdermal route once daily Nicotine 21 MG patch Discontinued 21 mg TRANSDERM. DAILY 30 May 15, 2015 12:00am October 26, 2022 10:22am predniSONE 10 mg oral tablet (2 sources) Start: 07-02-2024 End: 11-02-2024 predniSONE (DELTASONE) 10 mg tablet Indications: Viral sinusitis , Sinus pressure Day #1 - 6 tablets PO then Day #2 - 5 tablets PO then Day #3 - 4 tablets PO then Day #4 - 3 tablets PO then Day #5 - 2 tablets PO then Day #6 - 1 tablet PO 21 tablet 07/02/2024 11/02/2024 Discontinued Problems Problem Classification Problem Date Documented Date Episodic/Chronic Abdominal pain (1 source) Left lower quadrant pain; Translations: [Left lower quadrant pain] Onset: 5 Episodic Acute cerebrovascular disease (14 sources) Ischemic stroke; Translations: [Cerebral infarction, unspecified] Onset: 3 07-12-2023 Chronic Comment on above: old right basal ggl with mild left hemiparesisnew left midbrain and thalamus Delirium, dementia, and amnestic and other cognitive disorders (6 sources) Dementia; Translations: [Unspecified dementia without behavioral disturbance] 11-30-2022 Chronic Epilepsy; convulsions (14 sources) Seizure disorder; Translations: [Epilepsy, unspecified, not intractable, without status epilepticus] 11-30-2022 Chronic Comment on above: self medicated with marijuana products Headache; including migraine (7 sources) Migraine, unspecified, not intractable, without status migrainosus; Translations: [Migraine] Onset: 3 07-12-2023 Chronic Headache; including migraine (3 sources) Headache; Translations: [Headaches] 07-02-2024 Episodic Headache; including migraine (1 source) Headache; including migraine; Translations: [Headache, unspecified] Onset: 5 Nonspecific chest pain (6 sources) Chest pain at rest; Translations: [Chest pain, unspecified] 11-30-2022 Episodic Nutritional deficiencies (8 sources) Vitamin D deficiency, unspecified; Translations: [Vitamin D deficiency] Onset: 3 07-12-2023 Chronic Other and ill-defined cerebrovascular disease (1 source) Cerebral aneurysm, nonruptured; Translations: [Nonruptured cerebral aneurysm] Onset: 3 Chronic Other and ill-defined cerebrovascular disease (11 sources) Cerebral arterial aneurysm; Translations: [Cerebral aneurysm, nonruptured] 07-12-2023 Chronic Other circulatory disease (8 sources) History of endocarditis; Translations: [Personal history of other diseases of the circulatory system] 05-14-2015 Episodic Other circulatory disease (1 source) Personal history of transient ischemic attack (TIA), and cerebral infarction without residual deficits; Translations: [History of stroke] Onset: Episodic Other circulatory disease (1 source) History of cerebrovascular accident; Translations: [Personal history of transient ischemic attack (TIA), and cerebral infarction without residual deficits] 07-12-2023 Episodic Other circulatory disease (6 sources) History of cerebrovascular accident due to ischemia; Translations: [Personal history of transient ischemic attack (TIA), and cerebral infarction without residual deficits] 11-30-2022 Episodic Other ear and sense organ disorders (1 source) Otalgia, right ear; Translations: [Otalgia, unspecified] 07-02-2024 Episodic Other injuries and conditions due to external causes (1 source) Personal history of other (healed) physical injury and trauma; Translations: [History of traumatic head injury] Onset: Episodic Other injuries and conditions due to external causes (1 source) H/O: head injury; Translations: [Personal history of other (healed) physical injury and trauma] 07-12-2023 Episodic Other lower respiratory disease (1 source) Snoring; Translations: [Snoring] Onset: 11-08-202 3 Episodic Other lower respiratory disease (1 source) Snoring; Translations: [Snoring] 07-12-2023 Episodic Other lower respiratory disease (1 source) Dyspnea, unspecified; Translations: [Dyspnea, unspecified] Onset: 5 Episodic Other nervous system disorders (1 source) Polyneuropathy, unspecified; Translations: [Neuropathy - (NOS)] Onset: 3 Chronic Other nervous system disorders (1 source) Neuropathy; Translations: [Polyneuropathy, unspecified] 07-12-2023 Chronic Other nervous system disorders (1 source) Personal history of infections of the central nervous system; Translations: [History of meningitis] Onset: 3 Episodic Other nervous system disorders (1 source) Other symptoms and signs involving cognitive functions and awareness; Translations: [Cognitive impairment] Onset: 3 Episodic Other nervous system disorders (7 sources) H/O: meningitis; Translations: [Personal history of infections of the central nervous system] 07-12-2023 Episodic Other nervous system disorders (7 sources) Impaired cognition; Translations: [Other symptoms and signs involving cognitive functions and awareness] 07-12-2023 Episodic Other screening for suspected conditions (not mental disorders or infectious disease) (2 sources) Abnormal level of hormones in specimens from other organs, systems and tissues; Translations: [Encounter for screening for diabetes mellitus] Onset: 5 Episodic Other upper respiratory disease (1 source) Other specified disorders of nose and nasal sinuses; Translations: [Other disease of nasal cavity and sinuses] 07-02-2024 Episodic Other upper respiratory infections (1 source) Viral sinusitis; Translations: [Chronic sinusitis, unspecified] 07-02-2024 Chronic Residual codes; unclassified (1 source) REM sleep behavior disorder; Translations: [REM behavioral disorder] Onset: 3 Chronic Residual codes; unclassified (1 source) REM sleep behavior disorder; Translations: [REM sleep behavior disorder] 07-12-2023 Chronic Residual codes; unclassified (1 source) Flushing; Translations: [Hot flashes] Onset: 3 Episodic Residual codes; unclassified (1 source) Personal history of other specified conditions; Translations: [History of seizure] Onset: 3 Episodic Residual codes; unclassified (1 source) Family history of stroke; Translations: [Family history of stroke] Onset: 3 Episodic Residual codes; unclassified (1 source) Other general symptoms and signs; Translations: [Temperature intolerance] Onset: 3 Episodic Residual codes; unclassified (7 sources) Flushing; Translations: [Flushing] 07-12-2023 Episodic Residual codes; unclassified (1 source) History of clinical finding in subject; Translations: [Personal history of other specified conditions] 07-12-2023 Episodic Residual codes; unclassified (1 source) Family history of stroke; Translations: [Family history of stroke] 07-12-2023 Episodic Residual codes; unclassified (1 source) Intolerant of ambient temperature; Translations: [Other general symptoms and signs] 07-12-2023 Episodic Skin and subcutaneous tissue infections (1 source) Infection of finger; Translations: [Local infection of the skin and subcutaneous tissue, unspecified] 11-02-2024 Episodic Unclassified (8 sources) History of meningoencephalitis 05-14-2015 Results Test Name Value Interpretation Reference Range Facility Abdomen/Pelvis WITH Contrast on 04-16-2025 Abdomen/Pelvis WITH Contrast [facility] [address] [place] [address] Abdomen/Pelvis WITH Contrast MR#: [id number] Acct: [id number] Name: DMITRY ROBERTSON Rep #: [id number] : 1970 M 55 From: Oj Vines MD PCP: Maryellen Christian [facility] OFFICE SERVICES CLERK-C Status: REG CLI Study: Abdomen/Pelvis WITH Contrast Date of Exam: Exam# [id number] Ordering Dr: Maryellen Christian [facility] OFFICE SERVICES CLERK- C PROCEDURE: ABDOMEN/PELVIS WITH CONTRAST, 04/16/2025 REASON FOR EXAM: LLQ PAIN TECHNIQUE: CT abdomen and pelvis was performed with IV contrast. Multiplanar reformats were generated. Oral contrast administered. IV contrast: Isovue 370 VOLUME: 94mL RADIATION DOSE SUMMARY: CTDlvol: 9.97+ 23.95 mGy DLP: 1445.56 mGycm One or more dose reduction techniques were used (e.g., Automated exposure control, adjustment of the mA and/or kV according to patient size, use of iterative reconstruction technique). COMPARISON: None FINDINGS: Mild/moderate limitation through the lung bases and far upper abdomen. Note that the exam is slightly limited by essentially late arterial phase of contrast timing with poorly opacified hepatic veins. Lung bases: Granuloma in the RIGHT lung base 9 x 6 mm noncalcified nodule in the RIGHT lung base. 5 x 4 mm nodule in the LEFT lung base. Mild atelectasis/scarring .. Liver: Steatosis. Spleen: Granulomas. 13.7 cm coronal. Gallbladder: Unremarkable. Pancreas: Unremarkable. Adrenals: Unremarkable. Kidneys: Unremarkable. Bowel: Unremarkable. Normal caliber appendix. Lymph nodes: Unremarkable. Vasculature: Atherosclerosis.. Peritoneum: Unremarkable. Bladder: Underdistended and suboptimally evaluated, grossly unremarkable. Reproductive Organs: Unremarkable. Body Wall: Unremarkable. Bones: Unremarkable. CT/Abdomen/Pelvis WITH Contrast IMPRESSION: 1. No acute findings. 2. Indeterminate bibasilar pulmonary nodules up to 7.5 mm average axial diameter, suboptimally visualized due to motion artifact. These warrant clinical follow-up. Recommend CT chest unless recently performed elsewhere. 3. Diffuse hepatic steatosis and mild splenomegaly. Correlate for clinical and laboratory evidence of chronic liver disease. 4. Additional description as above. Reading Location: [facility] CC: Maryellen [facility] OFFICE SERVICES CLERK-C Gino Cattle Farmer: Signed Normal [facility] Brain W/WO Contraston 2024 Brain W/WO Contrast [facility] [address] [place] [address] Brain W/WO Contrast MR#: [id number] Acct: [id number] Name: DMITRY ROBERTSON Rep #: [id number] : 1970 M 55 From: Manuel Solis MD PCP: Maryellen Christian [facility] OFFICE SERVICES CLERK-C Status: REG CLI Study: Brain W/WO Contrast Date of Exam: 04/01/25 Exam# [id number] Ordering Dr: Maryellen Christian [facility] OFFICE SERVICES CLERK- C PROCEDURE: MR BRAIN W/WO CONTRAST 04/01/2025 REASON FOR EXAM: MIGRAINES, NON INTRACTABLE TECHNIQUE: Multiplanar and multisequential MRI of the brain was performed without and with IV gadolinium based contrast administration. CONTRAST: Clariscan VOLUME: 20 mL COMPARISON: Brain MRA 08/02/2023. MRI 08/02/2023. FINDINGS: No regions of abnormal restricted diffusion to indicate recent infarct. No intracranial mass lesion or pathologic enhancement. No evidence of acute intracranial hemorrhage, extra-axial collection, hydrocephalus, or other acute abnormality. Mild generalized brain parenchymal volume loss. Similar appearance of moderate small-vessel ischemic-gliotic changes throughout the supratentorial white matter, with multiple small foci of chronic lacunar infarct involving the bilateral basal ganglia, including the bilateral thalami, right putamen, and few small foci within the inferior right cerebellar hemisphere. Major intracranial vascular flow voids appear preserved. 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 Absent [place] ocular lenses. Mild peripheral mucosal thickening throughout the paranasal sinuses. No mastoid effusions. MRI/Brain W/WO Contrast IMPRESSION: No acute intracranial abnormality. No interval new or acute infarct. Stable appearing moderate chronic small-vessel ischemic changes with several old lacunar infarcts involving the bilateral basal ganglia and right cerebellar hemisphere. Grossly stable small 4-5 mm aneurysm at the right ICA terminus/PCOM origin. Reading Location: [facility] CC: Maryellen BECKMAN OFFICE SERVICES CLERK-C Gino Cattle Farmer: Signed Normal [facility] Magnetic resonance imaging r eportOrdered By: Manuel Solis on 04-01-2025 Study report [facility] Services [address] [place], [place] [id number] Brain W/WO Contrast MR#: [id number] Acct: [id number] Name: DMITRY ROBERTSON Rep #: [id number] : 1970 M 55 From: Krzysztof Solis MD PCP: Maryellen Christian OFFICE SERVICES CLERK-C Status: REG CLI Study:Brain W/WO Contrast Date of Exam: 04/01/25 Exam# [id number] Ordering Dr: Elie ChristianC OFFICE SERVICES CLERK-C PROCEDURE: MR BRAIN W/WO CONTRAST 04/01/2025 REASON FOR EXAM: MIGRAINES, NON INTRACTABLE TECHNIQUE: Multiplanar and multisequential MRI of the brain was performed without and with IV gadolinium based contrast administration. CONTRAST: Clariscan VOLUME: 20 mL COMPARISON: Brain MRA 08/02/2023. MRI 08/02/2023. FINDINGS: No regions of abnormal restricted diffusion to indicate recent infarct. No intracranial mass lesion or pathologic enhancement. No evidence of acute intracranial hemorrhage, extra-axial collection, hydrocephalus, or other acute abnormality. Mild generalized brain parenchymal volume loss. Similar appearance of moderate small-vessel ischemic-gliotic changes throughout the supratentorial white matter, with multiple small foci of chronic lacunar infarct involving the bilateral basal ganglia, including the bilateral thalami, right putamen, and few small foci within the inferior right cerebellar hemisphere. Major intracranial vascular flow voids appear preserved. 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 Absent [place] ocular lenses. Mild peripheral mucosal thickening throughout the paranasal sinuses. No mastoid effusions. MRI/Brain W/WO Contrast IMPRESSION: No acute intracranial abnormality. No interval new or acute infarct. Stable appearing moderate chronic small-vessel ischemic changes with several oldlacunar infarcts involving the bilateral basal ganglia and right cerebellar hemisphere. Grossly stable small 4-5 mm aneurysm at the right ICA terminus/PCOM origin. Reading Location: [id number] CC: Maryellen [facility] OFFICE SERVICES CLERK-C Gino ~ Cattle Farmer: Signed [facility] PROLACTIN 4465on 03-16-2025 PROLACTIN 9.3 ng/mL Normal 3.6-25.2 [facility] Comment on above: Result Comment: Perf ormed at: [address] [id number] Manager Dairy: Alfie Mustafa PhD, Phone: [phone] Performed at: [facility] [id number] Manager Dairy: Chirag Avina MD, Phone: [phone] Performed By: #### L 501.9520, L500.4100, L506.1001, L503.0106, L501.9910, L501.9985, L100.0100, L500.4050, L3100.5310 #### [facility] [address] [place], [address] Testosterone, Total / Freeon 03-16-2025 TESTOSTER,FREE 9.76 ng/dL Normal 5.00-21.00 [facility] Comment on above: Order Comment: N Performed By: #### L 501.9520, L500.4100, L506.1001, L503.0106, L501.9910, L501.9985, L100.0100, L500.4050, L3100.5310 #### [facility] [address] [place], [address] TESTOSTER,TOTAL 288 ng/dL Normal 264-916 [facility] Comment on above: Order Comment: N Result Comment: Adul t male reference interval is based on a population of healthy nonobese males (BMI <30) between 19 and 39 years old. Shari et.al. JCEM 2017,102;8346-3417. PMID: [id number]. Performed By: #### L 501.9520, L500.4100, L506.1001, L503.0106, L501.9910, L501.9985, L100.0100, L500.4050, L3100.5310 #### [facility] [address] [place], [address] TESTOSTERONE,%F 3.39 Normal 1.50-4.20 [facility] Comment on above: Order Comment: N Performed By: #### L 501.9520, L500.4100, L506.1001, L503.0106, L501.9910, L501.9985, L100.0100, L500.4050, L3100.5310 #### [facility] [address] [place], [place], [id number] Follicle Stimulating Hormone on 03-11-2025 FSH 10.1 mIU/mL Normal [facility] Comment on above: Result Comment: FEMA LE: Follicular: 1.4 - 18.1 mIU/mL Midcycle: 3.4 - 33.4 mIU/mL Luteal: 1.5 - 9.1 mIU/mL Post Menopause: 23.0 - 116.3 mIU/mL MALE: 1.4 - 18.1 mIU/mL Performed By: #### L 501.9520, L500.4100, L506.1001, L503.0106, L501.9910, L501.9985, L100.0100, L500.4050, L3100.5310 #### [facility] [address] [place], [place], [id number] Free testosterone percentage Ordered By: Zebulun Beam on 03-11-2025 Testosterone Free/Testosterone.total [Mass fraction] 3.39 % 1.50-4.20 [facility] LH ser/plasOrdered By: Zeсветланаl un Beam on 03-11-2025 Lutropin Qn 4.1 m[IU]/mL [facility] Comment on above: FEMALE:Follicular: 1 .9-12.5 mIU/mLMidcycle: 8.7-76.3 mIU/mLLuteal: 0.5-16.9 mIU/mLPost Menopause: 15.9-54.0 mIU/mLMALE:20-70 Years: 1.5-9.3 mIU/mL>70 Years: 3.1-34.6 mIU/mL Luteinizing Hormoneon 2024 LH 4.1 mIU/mL Normal [facility] Comment on above: Result Comment: FEMA LE: Follicular: 1.9-12.5 mIU/mL Midcycle: 8.7-76.3 mIU/mL Luteal: 0.5-16.9 mIU/mL Post Menopause: 15.9-54.0 mIU/mL MALE: 20-70 Years: 1.5-9.3 mIU/mL >70 Years: 3.1-34.6 mIU/mL Performed By: #### L 501.9520, L500.4100, L506.1001, L503.0106, L501.9910, L501.9985, L100.0100, L500.4050, L3100.5310 #### [facility] [address] [place], [address] Serum or plasma free testost erone measurement (mass/volume)Ordered By: Maryellen Christian on 03-11-2025 Testosterone Free [Mass/Vol] 9.76 ng/dL 5.00-21.00 [facility] Serum or plasma prolactin me asurement (mass/volume)Ordered By: Maryellen Christian on 03-11-2025 Prolactin [Mass/Vol] 9.3 ng/mL 3.6-25.[address] [facility] Comment on above: Performed at: [facility] [employer] [id number] Director: Alfie Mustafa PhD, Phone: [phone] at: [facility] [id number] Director: Chirag Avina MD, Phone: [phone] Testosterone, totalOrdered B y: Maryellen Christian on 03-11-2025 Testosterone [Mass/Vol] 288 ng/dL 264-[address] [facility] Comment on above: Adult male reference interval is based on a population ofhealthy nonobese males (BMI <30) between 19 and 39 yearsold. billy Mccarthy.al. JCEM 2017,102;5435-3935. PMID:[id number]. Absolute lymphocyte countOrd ered By: Erik Serna on 02-27-2025 Lymphocytes Auto (Unsp spec) [#/Vol] 1.00 10*3/uL 0.83-4.51 [facility] Absolute neutrophil countOrd ered By: Erik Serna on 02-27-2025 Neutrophils (Bld) [#/Vol] 8.9 10*3/uL High 2.0-7.7 [facility] Anion gap in Serum or Plasma Ordered By: Erik Serna on 02-27-2025 Anion gap [Moles/Vol] 13 mmol/L 5-15 [facility] Automated lymphocyte count a s percentage of total leukocytesOrdered By: Erik Serna on 02-27-2025 Lymphocytes/100 WBC Auto (Unsp spec) 9.6 % Low - [facility] BUN/creatinine ratioOrdered By: Erik Serna on 02-27-2025 Urea nitrogen/Creatinine [Mass ratio] 18.1 mg/mg 06-23 [facility] Basic Metabolic Profile (BMP )on 02-27-2025 BUN/CRE 18.1 RATIO Normal 06-23 [facility] Comment on above: Performed By: #### L 501.9520, L500.4100, L506.1001, L503.0106, L501.9910, L501.9985, L100.0100, L500.4050, L3100.5310 #### [facility] [address] [place], [address] Calcium [Mass/Vol] 9.7 mg/dL Normal 7.6-11.0 [facility] Comment on above: Performed By: #### L 501.9520, L500.4100, L506.1001, L503.0106, L501.9910, L501.9985, L100.0100, L500.4050, L3100.5310 #### [facility] [address] [place], [address] Chloride [Moles/Vol] 103 mmol/L Normal 98-[address] [facility] Comment on above: Performed By: #### L 501.9520, L500.4100, L506.1001, L503.0106, L501.9910, L501.9985, L100.0100, L500.4050, L3100.5310 #### [facility] [address] [place], [address] CO2 [Moles/Vol] 22.3 mmol/L Normal 21.0-32.0 [facility] Comment on above: Performed By: #### L 501.9520, L500.4100, L506.1001, L503.0106, L501.9910, L501.9985, L100.0100, L500.4050, L3100.5310 #### [facility] [address] [place], [address] Creatinine [Mass/Vol] 1.03 mg/dL Normal 0.70-1.20 [facility] Comment on above: Performed By: #### L 501.9520, L500.4100, L506.1001, L503.0106, L501.9910, L501.9985, L100.0100, L500.4050, L3100.5310 #### [facility] [address] [place], [place], [id number] (543 ECRCL 120.44 ml/min Normal 50-250 [facility] Comment on above: Performed By: #### L 501.9520, L500.4100, L506.1001, L503.0106, L501.9910, L501.9985, L100.0100, L500.4050, L3100.5310 #### [facility] [address] [place], [address] GAP 13 Normal 5-15 [facility] Comment on above: Performed By: #### L 501.9520, L500.4100, L506.1001, L503.0106, L501.9910, L501.9985, L100.0100, L500.4050, L3100.5310 #### [facility] [address] [place], [address] GFR/1.73 sq M.predicted among non-blacks MDRD (S/P/Bld) [Vol rate/Area] 87 mL/min/{1.73_m2} Normal >60 [facility] Comment on above: Result Comment: mL/m in/1.73m2 CKD-EPI Creatinine Equation (2020) Performed By: #### L 501.9520, L500.4100, L506.1001, L503.0106, L501.9910, L501.9985, L100.0100, L500.4050, L3100.5310 #### [facility] [address] [place], [address] Glucose [Mass/Vol] 139 mg/dL High 70-99 [facility] Comment on above: Performed By: #### L 501.9520, L500.4100, L506.1001, L503.0106, L501.9910, L501.9985, L100.0100, L500.4050, L3100.5310 #### [facility] [address] [place], [address] Potassium [Moles/Vol] 4.2 mmol/L Normal 3.3-5.1 [facility] Comment on above: Result Comment: Hemo lysis present, Results??could be affected. ?? Performed By: #### L 501.9520, L500.4100, L506.1001, L503.0106, L501.9910, L501.9985, L100.0100, L500.4050, L3100.5310 #### [facility] [address] [place], [address] Sodium [Moles/Vol] 139 mmol/L Normal 133-145 [facility] Comment on above: Performed By: #### L 501.9520, L500.4100, L506.1001, L503.0106, L501.9910, L501.9985, L100.0100, L500.4050, L3100.5310 #### [facility] [address] [place], [address] Urea nitrogen [Mass/Vol] 19 mg/dL Normal 4-19 [facility] Comment on above: Performed By: #### L 501.9520, L500.4100, L506.1001, L503.0106, L501.9910, L501.9985, L100.0100, L500.4050, L3100.5310 #### [facility] [address] [place], [address] Basophil percentageOrdered B y: Erik Serna on 02-27-2025 Basophils/100 WBC (Bld) 0.6 % 0-1 [facility] CBC W/Diff, Automatedon 02-03 Absolute Lymph 1.00 X10 3/uL Normal 0.83-4.51 [facility] Comment on above: Performed By: #### L 100.0100, L500.2500 #### [facility] [address] [place], [address] Absolute Neut 8.9 X10 3/uL High 2.0-7.7 [facility] Comment on above: Performed By: #### L 100.0100, L500.2500 #### [facility] [address] [place], [address] Basophils/100 WBC (Bld) 0.6 % Normal 0-1 [facility] Comment on above: Performed By: #### L 100.0100, L500.2500 #### [facility] [address] [place], [address] Eosinophils/100 WBC (Bld) 0.7 % Normal 0-5 [facility] Comment on above: Performed By: #### L 100.0100, L500.2500 #### [facility] [address] [place], [address] Erythrocyte distribution width (RBC) [Ratio] 13.4 % Normal 11.6-14.6 [facility] Comment on above: Performed By: #### L 100.0100, L500.2500 #### [facility] [address] [place], [address] Hematocrit (Bld) [Volume fraction] 45.3 % Normal 40-54 [facility] Comment on above: Performed By: #### L 100.0100, L500.2500 #### [facility] [address] [place], [address] Hemoglobin (Bld) [Mass/Vol] 15.9 g/dL Normal 13.0-16.5 [facility] Comment on above: Performed By: #### L 100.0100, L500.2500 #### [facility] [address] [place], [address] IG% 0.600 Normal 0.0-0.9 [facility] Comment on above: Result Comment: IG% - Immature Granulocytes (promyelocytes, myelocytes and metamyelocytes) > 1% indicates that a LEFT SHIFT is Present. Performed By: #### L 100.0100, L500.2500 #### [facility] [address] [facility] [place], [address] Lymphocytes/100 WBC (Bld) 9.6 % Low 19-41 [facility] Comment on above: Performed By: #### L 100.0100, L500.2500 #### [facility] [address] [place], [address] MCH (RBC) [Entitic mass] 29.6 pg Normal 27.0-32.0 [facility] Comment on above: Performed By: #### L 100.0100, L500.2500 #### [facility] [address] [place], [address] MCHC (RBC) [Mass/Vol] 35.1 g/dL Normal 32-36 [facility] Comment on above: Performed By: #### L 100.0100, L500.2500 #### [facility] [address] [place], [address] MCV (RBC) [Entitic vol] 84.2 fL Normal 80-94 [facility] Comment on above: Performed By: #### L 100.0100, L500.2500 #### [facility] [address] [place], [address] Monocytes/100 WBC (Bld) 3.9 % Normal 0-10 [facility] Comment on above: Performed By: #### L 100.0100, L500.2500 #### [facility] [address] [place], [address] Neutrophils/100 WBC (Bld) 84.6 % High 47-70 [facility] Comment on above: Performed By: #### L 100.0100, L500.2500 #### [facility] [address] [place], [address] Nucleated RBC (Bld) [#/Vol] 0 10*3/uL Normal 0-5 [facility] Comment on above: Performed By: #### L 100.0100, L500.2500 #### [facility] [address] [place], [address] Platelet mean volume (Bld) [Entitic vol] 10.4 fL Normal 6.2-12.0 [facility] Comment on above: Performed By: #### L 100.0100, L500.2500 #### [facility] [address] [place], [address] Platelets (Bld) [#/Vol] 223 10*3/uL Normal 150-450 [facility] Comment on above: Performed By: #### L 100.0100, L500.2500 #### [facility] [address] [place], [address] RBC (Bld) [#/Vol] 5.38 10*6/uL Normal 4.6-6.2 [facility] Comment on above: Performed By: #### L 100.0100, L500.2500 #### [facility] [address] [place], [address] RDW SD 41.2 fl Normal 35.1-43.9 [facility] Comment on above: Performed By: #### L 100.0100, L500.2500 #### [facility] [address] [place], [address] WBC (Bld) [#/Vol] 10.5 10*3/uL Normal 4.4-11.0 [facility] Comment on above: Performed By: #### L 100.0100, L500.2500 #### [facility] [address] [place], [address] CTA Head W/WO Contraston CTA Head W/WO Contrast [facility] Services [address] [place] [address] CTA Head W/WO Contrast MR#: [id number] Acct: [id number] Name: DMITRY ROBERTSON Rep #: [id number] : 1970 M 54 From: Oj Vines MD PCP: Maryellen Christian [facility] OFFICE SERVICES CLERK-C Status: REG ER Study: CTA Head W/WO Contrast Date of Exam: 02/27/25 Exam# [id number] Ordering Dr: Erik Serna DO PROCEDURE: CT HEAD WITHOUT CONTRAST AND CTA HEAD W/WO CONTRAST 02/27/2025 REASON FOR EXAM: HX OF BRAIN ANEURYSM, HEADACHE TECHNIQUE: CT head was performed without IV contrast. CTA head was performed with IV contrast. Multiplanar reformats as well as MIP and 3D reconstructions were generated. IV contrast: Isovue 370 VOLUME: 100mL RADIATION DOSE SUMMARY: CTDlvol: 44.99+ 13.44+ 21.86 mGy DLP: 1326.91 mGycm One or more dose reduction techniques were used (e.g., Automated exposure control, adjustment of the mA and/or kV according to patient size, use of iterative reconstruction technique). COMPARISON: 08/02/2023 and prior FINDINGS: CT HEAD: Slight limitation related to lack of noncontrast coronal and sagittal reformats. Cerebrum: No definite acute territorial infarct, visible acute intracranial hemorrhage, or visible mass. Similar small remote lacunar infarcts in the RIGHT caudate, RIGHT basal ganglia and LEFT thalamus. Cerebellum/brainstem : Unremarkable. Note slight limitation due to beam hardening artifact. Ventricles/extra-axi al spaces: Similar relative ex vacuo dilatation of the RIGHT lateral ventricle.. Paranasal sinuses/mastoid air cells: Patchy opacification of the anterior ethmoid air cells, GVWY-erdhkdb-ejor-RI GHT. Mucosal thickening in the MJOL-bvnxntw-oqfc-RI GHT frontal recesses with opacification on the LEFT. Scalp/calvarium: Unremarkable. Other: Absence of all maxillary and most mandibular teeth with a remaining probably impacted LEFT mandibular molar. CTA HEAD: Exam slightly limited by venous contamination. Anterior circulation: Patent. Similarly hypoplastic or absent LEFT A1 segment, normal variant. Posterior circulation: Patent. Diminutive LEFT vertebral artery again essentially terminates as PICA. Redemonstrated origin of the RIGHT [facility] Aneurysms: None grossly similar saccular 5 x 4 x 3 mm aneurysm arising from the RIGHT posterior communicating artery origin laterally since 07/28/2018 allowing for the difference in modality. Venous structures: Grossly unremarkable within limits of nondedicated technique. CT/CTA Head W/WO Contrast IMPRESSION: 1. No visible acute noncontrast intracranial findings. If concern persists, recommend MRI. 2. Similar 5 mm saccular aneurysm arising from the RIGHT posterior communicating artery origin laterally since 07/24/2018 allowing for the difference in modality. Recommend nonemergent clinical follow-up such as neurosurgical or neuro-IR consultation. 3. No high-grade stenosis or large vessel occlusion identified. 4. Frontoethmoid paranasal sinus disease. 5. Additional description as above. Reading Location: [id number] CC: Dr. Erik Serna, DO; Maryellen [facility] OFFICE SERVICES CLERK-C Beam Cattle Farmer: Signed Normal [facility] Carbon dioxide, total [Moles /volume] in Central venous bloodOrdered By: Erik Serna on 02-27-2025 CO2 [Moles/Vol] 22.3 mmol/L 21.0-32.0 [facility] Chloride assayOrdered By: Thai Serna on 02-27-2025 Chloride [Moles/Vol] 103 mmol/L 98-[address] [facility] Emergency Department Summary on 02-27-2025 Emergency Department Summary [facility] Medical Records Department [address] [place] [address] Emergency Department Summary 02/27/25 MR#: [id number] Acct: [id number] Name: DMITRY ROBERTSON Rep #: [id number] : 1970 54 From: Erik Serna DO PCP: Maryellen Christian OFFICE SERVICES CLERK-C Status:REG ER Location: ED ADDENDUM by Dr. Aguilar Jean MD on 02/27/25 at 1820 Patient endorsed to me by Dr. Erik Serna to check the CTA on this patient with known aneurysm. I reviewed the radiology report of the CTA and there has been no significant change of the saccular aneurysm since 2018. Patient states that he does follow-up with neurosurgery, and is feeling improved and is motivated for discharge. Disposition is discharged as planned. Patient is in stable condition. 02/27/25 1820 Cosigner Signature (if applicable): cc: Maryellen [facility] OFFICE SERVICES CLERK-C Gino * Signed HPI History of Present Illness Chief Complaint: Headache Narrative Narrative: Patient is a 54-year-old male with past medical history of traumatic brain injury, CVA, migraine headache, subarachnoid hemorrhage, aneurysm, seizure who presented to the emergency department chief complaint headache. According to the patient he woke up this morning and noted that he had a headache that slowly progressively worsened throughout the day prompting him to come here for further evaluation management. He states that he had vomited earlier in the day. He just states that he does not feel well overall. Denies any sick contacts [facility] Medical History TBI (traumatic brain injury) CVA (cerebral vascular accident) Endocarditis Meningitis Migraine Subarachnoid hemorrhage Home Medications ???Medication ???Instructions ???Recorded ???Last Taken ???Type lisinopril 10 mg tablet 10 mg PO DAILY #30 tabs 10/26/22 U nknown Rx ondansetron 4 mg disintegrating 4 mg PO Q6H PRN nausea and 5 Unknown Rx tablet vomiting #30 tabs Allergy/AdvReac Type Severity Reaction Status Date / Time No Known Allergies Allergy Verified 02/27/25 14:35 Family History Other COPD (chronic obstructive pulmonary disease) Diabetes History of blood clots Skin cancer Surgical History History of skin graft Social History Smoking Status: Current every day smoker tobacco type: e-cigarettes substance use type: marijuana ROS ROS ED ROS Narrative Constitutional: Complains of headache as noted above denies fevers or chills Eyes: Denies change in vision double vision blurry vision Cardiovascular: Denies chest pain Respiratory: Denies shortness of breath Abdomen: Denies abdominal pain nausea vomit diarrhea : Denies urinary symptoms Neurological: Denies any numbness, wheeze, tingling Musculoskeletal: Denies back pain Skin: Denies rashes or lesions EXAM Physical Exam Narrative Exam Narrative: General: Patient lying in bed rest comfortably do not appear to be in any acute distress Head: Atraumatic, normocephalic Eyes: PERRL bilaterally, EOMI bilateral, no conjunctival injection noted Neck: Soft, supple, trachea midline Cardiovascular: Regular rate and rhythm no murmurs gallops rubs noted Respiratory: Clear to auscultation bilaterally no rales rhonchi or wheezes noted Abdomen: Soft, nondistended, tender to palpation Extremities: +5/5 strength noted in the bilateral upper and lower extremities, radial pulses +2/4 in the bilateral extremities, no pedal edema on exam Neurological: Patient follow commands knew that he was at [facility] year is 2024. Patient has residual left lower extremity weakness from his previous strokes Skin: Warm, dry, tact no rashes or lesions noted Const Vital Signs: 02/27/25 14:32 02/27/25 15:55 02/27/25 16:18 Temperature 97.6 F L Temperature Source Oral Pulse Rate 73 Respiratory Rate 16 Blood Pressure 134/81 H 135/91 H Blood Pressure Mean 98 105 Pulse Ox 99 96 Oxygen Delivery Method Room Air MDM MDM MDM Narrative Medical decision making narrative: Patient is a 54-year-old male who presents to the emergency department chief complaint of headache. On the differential diagnose includes not limited to intracranial hemorrhage, migraine headache, cluster headache. Once the workup is obtained reviewed he will be reevaluated. Patient will be given IV fluids Reglan Tylenol. Patient CBC reviewed showed no evidence leukocytosis white blood count normal 10.5, he was 15.9, platelet count of 223. Patient sodium was 139, potassium normal 4.2, creatinine normal at 1.03. Patient's CTA head is still pending. Patient on reevaluation is feeling much improved. Pa (more content not included)... Normal [facility] Eosinophil percentageOrdered By: Erik Serna on 02-27-2025 Eosinophils/100 WBC (Bld) 0.7 % 0-5 [facility] Erythrocyte distribution wid th ratioOrdered By: Erik Serna on 02-27-2025 Erythrocyte distribution width (RBC) [Ratio] 13.4 % 11.6-14.6 [facility] Erythrocyte distribution wid th standard deviationOrdered By: Erik Serna on 02-27-2025 Erythrocyte distribution width (RBC) [Ratio] 41.2 fl 35.1-43.9 [facility] Glomerular filtration rate ( GFR) estimation/1.73 sq m using serum, plasma, or whole bOrdered By: Erik Serna on 02-27-2025 GFR/1.73 sq M.predicted among non-blacks MDRD (S/P/Bld) [Vol rate/Area] 87 mL/min/{1.73_m2} >60 [facility] Comment on above: mL/min/1.73m2 CKD-EP I Creatinine Equation (2020) Hematocrit Auto (Bld) [Volum e fraction]Ordered By: Erik Serna on 02-27-2025 Hematocrit (Bld) [Volume fraction] 45.3 % 40-54 [facility] Hemoglobin measurementOrdere d By: Erik Serna on 02-27-2025 Hemoglobin (Bld) [Mass/Vol] 15.9 g/dL 13.0-16.5 [facility] Immature granulocytes/100 WB C Auto (Bld)Ordered By: Erik Serna on 02-27-2025 Immature granulocytes/100 WBC (Bld) 0.600 % 0.0-0.9 [facility] Comment on above: IG% - Immature Granu locytes (promyelocytes, myelocytes and metamyelocytes) > 1% indicates that a LEFT SHIFT is Present. MCV (mean corpuscular volume ) determinationOrdered By: Erik Serna on 02-27-2025 MCV (RBC) [Entitic vol] 84.2 fL 80-94 [facility] Mean corpuscular hemoglobin (MCH) determinationOrdered By: Erik Serna on 02-27-2025 MCH (RBC) [Entitic mass] 29.6 pg 27.0-32.0 [facility] Mean corpuscular hemoglobin concentration (MCHC) determinationOrdered By: Erik Serna on 02-27-2025 MCHC (RBC) [Mass/Vol] 35.1 g/dL 32-36 [facility] Mean platelet volume determi nationOrdered By: Erik Serna on 02-27-2025 Platelet mean volume (Bld) [Entitic vol] 10.4 fL 6.2-12.0 [facility] Monocyte percentageOrdered B y: Erik Serna on 02-27-2025 Monocytes/100 WBC (Bld) 3.9 % 0-10 [facility] Neutrophil percentageOrdered By: Erik Serna on 02-27-2025 Neutrophils/100 WBC (Bld) 84.6 % High 47-70 [facility] Nucleated red blood cell per centageOrdered By: Erik Serna on 02-27-2025 Nucleated RBC/100 WBC (Bld) [Ratio] 0 % 0-5 [facility] Platelet countOrdered By: Thai Serna on 02-27-2025 Platelets (Bld) [#/Vol] 223 10*3/uL 150-450 [facility] Potassium measurement (mass/ volume)Ordered By: Erik Serna on 02-27-2025 Potassium (Unsp spec) [Mass/Vol] 4.2 mmol/L 3.3-5.1 [facility] Comment on above: Hemolysis present, R esults could be affected. RBC Auto (Bld) [#/Vol]Ordere d By: Erik Serna on 02-27-2025 RBC (Bld) [#/Vol] 5.38 10*6/uL 4.6-6.2 [facility] Serum creatinine measurement (mass/volume)Ordered By: Erik Serna on 02-27-2025 Creatinine [Mass/Vol] 1.03 mg/dL 0.70-1.20 [facility] Serum glucose measurement (m ass/volume)Ordered By: Erik Serna on 02-27-2025 Glucose [Mass/Vol] 139 mg/dL High 70-99 [facility] Serum or plasma calcium radha urement (mass/volume)Ordered By: Erik Serna on 02-27-2025 Calcium [Mass/Vol] 9.7 mg/dL 7.6-11.0 [facility] Serum or plasma urea nitroge n measurement (mass/volume)Ordered By: Erik Serna on 02-27-2025 Urea nitrogen [Mass/Vol] 19 mg/dL 4-19 [facility] Sodium levelOrdered By: Brittany Serna on 02-27-2025 Sodium [Moles/Vol] 139 mmol/L 133-145 [facility] White blood cell (WBC) count Ordered By: Erik Serna on 02-27-2025 WBC (Bld) [#/Vol] 10.5 10*3/uL 4.4-11.0 [facility] Testosterone, Total / Freeon 02-23-2025 TESTOSTER,FREE 6.86 ng/dL Normal 5.00-21.00 [facility] Comment on above: Order Comment: N Performed By: #### L 501.9520, L500.4100, L506.1001, L503.0106, L501.9910, L501.9985, L100.0100, L500.4050, L3100.5310 #### [facility] [address] [place], [address] TESTOSTER,TOTAL 220 ng/dL Low 264-916 [facility] Comment on above: Order Comment: N Result Comment: Adul t male reference interval is based on a population of healthy nonobese males (BMI <30) between 19 and 39 years old. billy Mccarthy.al. JCEM 2017,102;5379-9067. PMID: [id number]. Performed By: #### L 501.9520, L500.4100, L506.1001, L503.0106, L501.9910, L501.9985, L100.0100, L500.4050, L3100.5310 #### [facility] [address] [place], [place], [id number] TESTOSTERONE,%F 3.12 Normal 1.50-4.20 [facility] Comment on above: Order Comment: N Result Comment: Perf ormed at: - [facility] [address] [id number] Manager Dairy: Alfie Mustafa PhD, Phone: [phone] Performed at: - [facility] [address] [id number] Manager Dairy: Chirag Avina MD, Phone: [phone] Performed By: #### L 501.9520, L500.4100, L506.1001, L503.0106, L501.9910, L501.9985, L100.0100, L500.4050, L3100.5310 #### [facility] [address] [place], [place], [id number] Absolute lymphocyte countOrd ered By: Zebulun Beam on 02-19-2025 Lymphocytes Auto (Unsp spec) [#/Vol] 1.90 10*3/uL 0.83-4.51 [facility] Absolute neutrophil countOrd ered By: Zebulun Beam on 02-19-2025 Neutrophils (Bld) [#/Vol] 3.4 10*3/uL 2.0-7.7 [facility] Anion gap in Serum or Plasma Ordered By: Zebulun Beam on 02-19-2025 Anion gap [Moles/Vol] 10 mmol/L 5-15 [facility] Automated lymphocyte count a s percentage of total leukocytesOrdered By: Zebulun Beam on 02-19-2025 Lymphocytes/100 WBC Auto (Unsp spec) 31.0 % -41 [facility] BUN/creatinine ratioOrdered By: Zebulun Beam on 02-19-2025 Urea nitrogen/Creatinine [Mass ratio] 19.2 mg/mg 10-20 [facility] Basophil percentageOrdered B y: Zebulun Beam on 02-19-2025 Basophils/100 WBC (Bld) 1.3 % High 0-1 [facility] Bilirubin, totalOrdered By: Zebulun Beam on 02-19-2025 Bilirubin [Mass/Vol] 0.35 mg/dL Normal 0.00-1.[address] [facility] Comment on above: Performed By: #### L 501.9520, L500.4100, L506.1001, L503.0106, L501.9910, L501.9985, L100.0100, L500.4050, L3100.5310 #### [facility] [address] [place], [place], [id number] CBC W/Diff, Automatedon 02-02 Absolute Lymph 1.90 X10 3/uL Normal 0.83-4.51 [facility] Comment on above: Performed By: #### L 501.9520, L500.4100, L506.1001, L503.0106, L501.9910, L501.9985, L100.0100, L500.4050, L3100.5310 #### [facility] [address] [place], [place], [id number] Absolute Neut 3.4 X10 3/uL Normal 2.0-7.7 [facility] Comment on above: Performed By: #### L 501.9520, L500.4100, L506.1001, L503.0106, L501.9910, L501.9985, L100.0100, L500.4050, L3100.5310 #### [facility] [address] [place], [place], [id number] (641) Basophils/100 WBC (Bld) 1.3 % High 0-1 [facility] Comment on above: Performed By: #### L 501.9520, L500.4100, L506.1001, L503.0106, L501.9910, L501.9985, L100.0100, L500.4050, L3100.5310 #### [facility] [address] [place], [address] Eosinophils/100 WBC (Bld) 5.2 % High 0-5 [facility] Comment on above: Performed By: #### L 501.9520, L500.4100, L506.1001, L503.0106, L501.9910, L501.9985, L100.0100, L500.4050, L3100.5310 #### [facility] [address] [place], [address] Erythrocyte distribution width (RBC) [Ratio] 13.6 % Normal 11.6-14.6 [facility] Comment on above: Performed By: #### L 501.9520, L500.4100, L506.1001, L503.0106, L501.9910, L501.9985, L100.0100, L500.4050, L3100.5310 #### [facility] [address] [place], [address] Hematocrit (Bld) [Volume fraction] 45.0 % Normal 40-54 [facility] Comment on above: Performed By: #### L 501.9520, L500.4100, L506.1001, L503.0106, L501.9910, L501.9985, L100.0100, L500.4050, L3100.5310 #### [facility] [address] [place], [address] Hemoglobin (Bld) [Mass/Vol] 15.3 g/dL Normal 13.0-16.5 [facility] Comment on above: Performed By: #### L 501.9520, L500.4100, L506.1001, L503.0106, L501.9910, L501.9985, L100.0100, L500.4050, L3100.5310 #### [facility] [address] [place], [address] IG% 0.300 Normal 0.0-0.9 [facility] Comment on above: Result Comment: IG% - Immature Granulocytes (promyelocytes, myelocytes and metamyelocytes) > 1% indicates that a LEFT SHIFT is Present. Performed By: #### L 501.9520, L500.4100, L506.1001, L503.0106, L501.9910, L501.9985, L100.0100, L500.4050, L3100.5310 #### [facility] [address] [place], [address] Lymphocytes/100 WBC (Bld) 31.0 % Normal 19-41 [facility] Comment on above: Performed By: #### L 501.9520, L500.4100, L506.1001, L503.0106, L501.9910, L501.9985, L100.0100, L500.4050, L3100.5310 #### [facility] [address] [place], [address] MCH (RBC) [Entitic mass] 29.3 pg Normal 27.0-32.0 [facility] Comment on above: Performed By: #### L 501.9520, L500.4100, L506.1001, L503.0106, L501.9910, L501.9985, L100.0100, L500.4050, L3100.5310 #### [facility] [address] [place], [address] MCHC (RBC) [Mass/Vol] 34.0 g/dL Normal 32-36 [facility] Comment on above: Performed By: #### L 501.9520, L500.4100, L506.1001, L503.0106, L501.9910, L501.9985, L100.0100, L500.4050, L3100.5310 #### [facility] [address] [place], [address] MCV (RBC) [Entitic vol] 86.0 fL Normal 80-94 [facility] Comment on above: Performed By: #### L 501.9520, L500.4100, L506.1001, L503.0106, L501.9910, L501.9985, L100.0100, L500.4050, L3100.5310 #### [facility] [address] [place], [address] Monocytes/100 WBC (Bld) 6.9 % Normal 0-10 [facility] Comment on above: Performed By: #### L 501.9520, L500.4100, L506.1001, L503.0106, L501.9910, L501.9985, L100.0100, L500.4050, L3100.5310 #### [facility] [address] [place], [address] Neutrophils/100 WBC (Bld) 55.3 % Normal 47-70 [facility] Comment on above: Performed By: #### L 501.9520, L500.4100, L506.1001, L503.0106, L501.9910, L501.9985, L100.0100, L500.4050, L3100.5310 #### [facility] [address] [place], [address] Nucleated RBC (Bld) [#/Vol] 0 10*3/uL Normal 0-5 [facility] Comment on above: Performed By: #### L 501.9520, L500.4100, L506.1001, L503.0106, L501.9910, L501.9985, L100.0100, L500.4050, L3100.5310 #### [facility] [address] [place], [address] Platelet mean volume (Bld) [Entitic vol] 10.1 fL Normal 6.2-12.0 [facility] Comment on above: Performed By: #### L 501.9520, L500.4100, L506.1001, L503.0106, L501.9910, L501.9985, L100.0100, L500.4050, L3100.5310 #### [facility] [address] [place], [address] Platelets (Bld) [#/Vol] 227 10*3/uL Normal 150-450 [facility] Comment on above: Performed By: #### L 501.9520, L500.4100, L506.1001, L503.0106, L501.9910, L501.9985, L100.0100, L500.4050, L3100.5310 #### [facility] [address] [place], [address] RBC (Bld) [#/Vol] 5.23 10*6/uL Normal 4.6-6.2 [facility] Comment on above: Performed By: #### L 501.9520, L500.4100, L506.1001, L503.0106, L501.9910, L501.9985, L100.0100, L500.4050, L3100.5310 #### [facility] [address] [place], [address] RDW SD 43.0 fl Normal 35.1-43.9 [facility] Comment on above: Performed By: #### L 501.9520, L500.4100, L506.1001, L503.0106, L501.9910, L501.9985, L100.0100, L500.4050, L3100.5310 #### [facility] [address] [place], [address] WBC (Bld) [#/Vol] 6.1 10*3/uL Normal 4.4-11.0 [facility] Comment on above: Performed By: #### L 501.9520, L500.4100, L506.1001, L503.0106, L501.9910, L501.9985, L100.0100, L500.4050, L3100.5310 #### [facility] [address] [place], [place], [id number] Calculated very low density lipoprotein (VLDL) cholesterol measurementOrdered By: Maryellen Christian on 02-19-2025 Calculated very low density lipoprotein (VLDL) cholesterol measurement 27 mg/dL 5-40 [facility] Carbon dioxide, total [Moles /volume] in Central venous bloodOrdered By: Maryellen Christian on 02-19-2025 CO2 [Moles/Vol] 22.8 mmol/L Normal 21.0-32.0 [facility] Comment on above: Performed By: #### L 501.9520, L500.4100, L506.1001, L503.0106, L501.9910, L501.9985, L100.0100, L500.4050, L3100.5310 #### [facility] [address] [place], [address] Chloride assayOrdered By: Juan Christian on 02-19-2025 Chloride [Moles/Vol] 106 mmol/L Normal 98-[address] [facility] Comment on above: Performed By: #### L 501.9520, L500.4100, L506.1001, L503.0106, L501.9910, L501.9985, L100.0100, L500.4050, L3100.5310 #### [facility] [address] [place], [address] Comprehensive Metabolic Prof ilon 02-19-2025 ALK PHOS 99 U/L Normal 40-129 [facility] Comment on above: Performed By: #### L 501.9520, L500.4100, L506.1001, L503.0106, L501.9910, L501.9985, L100.0100, L500.4050, L3100.5310 #### [facility] [address] [place], [address] BUN/CRE 19.2 RATIO Normal 10-20 [facility] Comment on above: Performed By: #### L 501.9520, L500.4100, L506.1001, L503.0106, L501.9910, L501.9985, L100.0100, L500.4050, L3100.5310 #### [facility] [address] [place], [address] GAP 10 Normal 5-15 [facility] Comment on above: Performed By: #### L 501.9520, L500.4100, L506.1001, L503.0106, L501.9910, L501.9985, L100.0100, L500.4050, L3100.5310 #### [facility] [address] [place], [place], [id number] Potassium [Moles/Vol] 4.6 mmol/L Normal 3.3-5.1 [facility] Comment on above: Performed By: #### L 501.9520, L500.4100, L506.1001, L503.0106, L501.9910, L501.9985, L100.0100, L500.4050, L3100.5310 #### [facility] [address] [place], [address] T PROT 7.9 g/dL Normal 5.9-8.4 [facility] Comment on above: Performed By: #### L 501.9520, L500.4100, L506.1001, L503.0106, L501.9910, L501.9985, L100.0100, L500.4050, L3100.5310 #### [facility] [address] [place], [place], [id number] Comprehensive Metabolic Prof ilOrdered By: Maryellen Christian on 02-19-2025 AST [Catalytic activity/Vol] 24 U/L Normal <=37 [facility] Comment on above: Performed By: #### L 501.9520, L500.4100, L506.1001, L503.0106, L501.9910, L501.9985, L100.0100, L500.4050, L3100.5310 #### [facility] [place], [address] Eosinophil percentageOrdered By: Zebulun Beam on 02-19-2025 Eosinophils/100 WBC (Bld) 5.2 % High 0-5 [facility] Erythrocyte distribution wid th ratioOrdered By: [facility] on 02-[facility]-2025 Erythrocyte distribution width (RBC) [Ratio] 13.6 % 11.6-14.6 [facility] Erythrocyte distribution wid th standard deviationOrdered By: [facility] Be[facility] on 02-19-2025 Erythrocyte distribution width (RBC) [Ratio] 43.0 fl 35.1-43.9 [facility] Free testosterone percentage Ordered By: светланаamira Christian on 02-19-2025 Testosterone Free/Testosterone.total [Mass fraction] 3.12 % 1.50-4.20 [facility] Comment on above: Performed at: [address] [id number] Director: Alfie Mustafa PhD, Phone: [phone] at: [facility] [id number] Director: Chirag Avina MD, Phone: [phone] Glomerular filtration rate ( GFR) estimation/1.73 sq m using serum, plasma, or whole bOrdered By: Maryellen Christian on 02-19-2025 GFR/1.73 sq M.predicted among non-blacks MDRD (S/P/Bld) [Vol rate/Area] 88 mL/min/{1.73_m2} Normal >60 [facility] Comment on above: mL/min/1.73m2 CKD-EP I Creatinine Equation (2020) Result Comment: mL/m in/1.73m2 CKD-EPI Creatinine Equation (2020) Performed By: #### L 501.9520, L500.4100, L506.1001, L503.0106, L501.9910, L501.9985, L100.0100, L500.4050, L3100.5310 #### [facility] [address] [place], [place], [id number] Hematocrit Auto (Bld) [Volum e fraction]Ordered By: Zebulun Beam on 02-19-2025 Hematocrit (Bld) [Volume fraction] 45.0 % 40-54 [facility] Hemoglobin A1con 02-19-2025 HbA1c (Bld) [Mass fraction] 6.6 % High <=5.6 [facility] Comment on above: Result Comment: Norm al < 5.7 % Prediabetic 5.7 - 6.4 % Diabetic >or= 6.5 % Please note range changes. Performed By: #### L 501.9520, L500.4100, L506.1001, L503.0106, L501.9910, L501.9985, L100.0100, L500.4050, L3100.5310 #### [facility] [address] [facility] [place], [place], [id number] (077) Hemoglobin A1c percentageOrd ered By: Juanbulun Beam on 02-19-2025 HbA1c (Bld) [Mass fraction] 6.6 % High <5.7 [facility] Comment on above: Normal < 5.7 % Predi abetic 5.7 - 6.4 % Diabetic >or= 6.5 % Please note range changes. Hemoglobin measurementOrdere d By: Zebulun Beam on 02-19-2025 Hemoglobin (Bld) [Mass/Vol] 15.3 g/dL 13.0-16.5 [facility] Immature granulocytes/100 WB C Auto (Bld)Ordered By: Zebulun Beam on 02-19-2025 Immature granulocytes/100 WBC (Bld) 0.300 % 0.0-0.9 [facility] Comment on above: IG% - Immature Granu locytes (promyelocytes, myelocytes and metamyelocytes) > 1% indicates that a LEFT SHIFT is Present. LDL calc ser/plasOrdered By: Zebulun Beam on 02-19-2025 Cholesterol in LDL [Mass/Vol] 133 mg/dL Normal [facility] Comment on above: Gkxevuqwvr=504-474 m g/dL & Higher Agvd=245 mg/dL or greater Result Comment: Bord rpyktq=111-028 mg/dL Higher Fqno=290 mg/dL or greater Performed By: #### L 501.9520, L500.4100, L506.1001, L503.0106, L501.9910, L501.9985, L100.0100, L500.4050, L3100.5310 #### [facility] [address] [place], [address] (651) Lipid Profileon 02-19-2025 CHOL:HDL 4.60 Normal [facility] Comment on above: Performed By: #### L 501.9520, L500.4100, L506.1001, L503.0106, L501.9910, L501.9985, L100.0100, L500.4050, L3100.5310 #### [facility] [address] [place], [address] Cholesterol in VLDL [Mass/Vol] 27 mg/dL Normal 5-40 [facility] Comment on above: Performed By: #### L 501.9520, L500.4100, L506.1001, L503.0106, L501.9910, L501.9985, L100.0100, L500.4050, L3100.5310 #### [facility] [address] [place], [address] MCV (mean corpuscular volume ) determinationOrdered By: Zebulun Beam on 02-19-2025 MCV (RBC) [Entitic vol] 86.0 fL 80-94 [facility] Mean corpuscular hemoglobin (MCH) determinationOrdered By: Zebulun Beam on 02-19-2025 MCH (RBC) [Entitic mass] 29.3 pg 27.0-32.0 [facility] Mean corpuscular hemoglobin concentration (MCHC) determinationOrdered By: Maryellen Christian on 02-19-2025 MCHC (RBC) [Mass/Vol] 34.0 g/dL 32-36 [facility] Mean platelet volume determi nationOrdered By: [facility] Beam on 02-19-2025 Platelet mean volume (Bld) [Entitic vol] 10.1 fL 6.2-12.0 [facility] Monocyte percentageOrdered B y: Zebulun Beam on 02-19-2025 Monocytes/100 WBC (Bld) 6.9 % 0-10 [facility] Neutrophil percentageOrdered By: [facility] Beam on 02-19-2025 Neutrophils/100 WBC (Bld) 55.3 % 47-70 [facility] Nucleated red blood cell per centageOrdered By: [facility] on 02-19-2025 Nucleated RBC/100 WBC (Bld) [Ratio] 0 % 0-5 [facility] PSA,Total - Annual Screenon 02-19-2025 PSA,TOT SCREEN 0.29 ng/mL Normal 0.02-4.00 [facility] Comment on above: Result Comment: This test was performed using the [employer] tPSA method. Measured values of a patient??sample can vary depending on the testing procedure used. PSA values determined on patient samples by different testing procedures cannot be used interchangeably. If there is a change in PSA assays while monitoring therapy, sequential testing should be performed to confirm baseline values. Performed By: #### L 501.9520, L500.4100, L506.1001, L503.0106, L501.9910, L501.9985, L100.0100, L500.4050, L3100.5310 #### [facility] [address] [place], [address] Platelet countOrdered By: Juan roxanamorgan Christian on 02-19-2025 Platelets (Bld) [#/Vol] 227 10*3/uL 150-450 [facility] Potassium measurement (mass/ volume)Ordered By: esperanza Christian on 02-19-2025 Potassium (Unsp spec) [Mass/Vol] 4.6 mmol/L 3.3-5.1 [facility] RBC Auto (Bld) [#/Vol]Ordere d By: Maryellen Christian on 02-19-2025 RBC (Bld) [#/Vol] 5.23 10*6/uL 4.6-6.2 [facility] Screening total cholesterol/ high density lipoprotein (HDL) cholesterol ratioOrdered By: Maryellen Christian on 02-19-2025 Cholesterol.total/Choles terol in HDL [Mass ratio] 4.60 {ratio} [facility] Serum creatinine measurement (mass/volume)Ordered By: Maryellen Christian on 02-19-2025 Creatinine [Mass/Vol] 1.02 mg/dL Normal 0.70-1.20 [facility] Comment on above: Performed By: #### L 501.9520, L500.4100, L506.1001, L503.0106, L501.9910, L501.9985, L100.0100, L500.4050, L3100.5310 #### [facility] [address] [place], [place], [id number] Serum globulin measurementOr dered By: Maryellen Christian on 02-19-2025 Globulin (S) [Mass/Vol] 3.5 g/dL Normal 2.2-4.2 [facility] Comment on above: Performed By: #### L 501.9520, L500.4100, L506.1001, L503.0106, L501.9910, L501.9985, L100.0100, L500.4050, L3100.5310 #### [facility] [address] [place], [place], [id number] Serum glucose measurement (m ass/volume)Ordered By: Maryellen Christian on 02-19-2025 Glucose [Mass/Vol] 128 mg/dL High 70-99 [facility] Comment on above: Performed By: #### L 501.9520, L500.4100, L506.1001, L503.0106, L501.9910, L501.9985, L100.0100, L500.4050, L3100.5310 #### [facility] [address] [place], [address] Serum or plasma alanine maynard otransferase (ALT) measurementOrdered By: Zebulun Beam on 02-19-2025 ALT [Catalytic activity/Vol] 35 U/L Normal <=46 [facility] Comment on above: Performed By: #### L 501.9520, L500.4100, L506.1001, L503.0106, L501.9910, L501.9985, L100.0100, L500.4050, L3100.5310 #### [facility] [address] [place], [address] ([address] Serum or plasma albumin radha urement (mass/volume)Ordered By: Zebulun Beam on 02-19-2025 Albumin [Mass/Vol] 4.4 g/dL Normal 3.5-5.0 [facility] Comment on above: Performed By: #### L 501.9520, L500.4100, L506.1001, L503.0106, L501.9910, L501.9985, L100.0100, L500.4050, L3100.5310 #### [facility] [address] [place], [address] (397) Serum or plasma albumin/glob ulin mass ratioOrdered By: Zebulun Beam on 02-19-2025 Albumin/Globulin [Mass ratio] 1.3 {ratio} Normal 0.9-2.4 [facility] Comment on above: Performed By: #### L 501.9520, L500.4100, L506.1001, L503.0106, L501.9910, L501.9985, L100.0100, L500.4050, L3100.5310 #### [facility] [address] [place], [address] ([address] Serum or plasma alkaline cecilia sphatase measurementOrdered By: Zebulun Beam on 02-19-2025 ALP [Catalytic activity/Vol] 99 U/L 40-129 [facility] Serum or plasma calcium radha urement (mass/volume)Ordered By: Adeolalun Gino on 02-19-2025 Calcium [Mass/Vol] 9.3 mg/dL Normal 7.6-11.0 [facility] Comment on above: Performed By: #### L 501.9520, L500.4100, L506.1001, L503.0106, L501.9910, L501.9985, L100.0100, L500.4050, L3100.5310 #### [facility] [address] [place], [address] Serum or plasma cholesterol in HDL measurement (mass/volume)Ordered By: Maryellen Christian on 02-19-2025 Cholesterol in HDL [Mass/Vol] 45 mg/dL Normal [facility] Comment on above: National Cholesterol Education Program (NCEP) guidelines:<40 mg/dL: Low HDL-cholesterol (major risk factor for CHD)>= 60 mg/dL: High HDL-cholesterol (negative risk factor for CHD)HDL-cholesterol is affected by a number of factors, e.g. smoking, exercise, hormones, sex and age. Result Comment: Carmen onal Cholesterol Education Program (NCEP) guidelines: <40 mg/dL: Low HDL-cholesterol (major risk factor for CHD) >= 60 mg/dL: High HDL-cholesterol (negative risk factor for CHD) HDL-cholesterol is affected by a number of factors, e.g. smoking, exercise, hormones, sex and age. Performed By: #### L 501.9520, L500.4100, L506.1001, L503.0106, L501.9910, L501.9985, L100.0100, L500.4050, L3100.5310 #### [facility] [address] [place], [address] Serum or plasma cholesterol measurement (mass/volume)Ordered By: Maryellen Christian on 02-19-2025 Cholesterol [Mass/Vol] 205 mg/dL High <=200 [facility] Comment on above: Cholesterol level, D esirable <200 mg/dLBorderline high cholesterol 200-239 mg/dLHigh cholesterol >=240 mg/dLRecommendations of the NCEP Adult Treatment Panel for the following risk-cutoff thresholds for the [place] population. Result Comment: Chol esterol level, Desirable <200 mg/dL Borderline high cholesterol 200-239 mg/dL High cholesterol >=240 mg/dL Recommendations of the NCEP Adult Treatment Panel for the following risk-cutoff thresholds for the [place] population. Performed By: #### L 501.9520, L500.4100, L506.1001, L503.0106, L501.9910, L501.9985, L100.0100, L500.4050, L3100.5310 #### [facility] [address] [facility] [place], [place], [id number] Serum or plasma free testost erone measurement (mass/volume)Ordered By: Maryellen Christian on 02-19-2025 Testosterone Free [Mass/Vol] 6.86 ng/dL 5.00-21.00 [facility] Serum or plasma urea nitroge n measurement (mass/volume)Ordered By: Maryellen Christian on 02-19-2025 Urea nitrogen [Mass/Vol] 20 mg/dL High 4-19 [facility] Comment on above: Performed By: #### L 501.9520, L500.4100, L506.1001, L503.0106, L501.9910, L501.9985, L100.0100, L500.4050, L3100.5310 #### [facility] [address] [place], [place], [phone] Sodium levelOrdered By: Adeola Christian on 02-19-2025 Sodium [Moles/Vol] 139 mmol/L Normal 133-145 [facility] Comment on above: Performed By: #### L 501.9520, L500.4100, L506.1001, L503.0106, L501.9910, L501.9985, L100.0100, L500.4050, L3100.5310 #### [facility] [address] [place], [place], [id number] TSH DL <= 0.005 mIU/L QnOrde red By: aMryellen Beam on 02-19-2025 TSH Qn 0.986 uIU/mL 0.300-4.200 [facility] Testosterone, totalOrdered B y: Juanbulun Beam on 02-19-2025 Testosterone [Mass/Vol] 220 ng/dL Low 264-916 [facility] Comment on above: Adult male reference interval is based on a population ofhealthy nonobese males (BMI <30) between 19 and 39 yearsold. Shari et.al. JCEM 2017,102;2432-0434. PMID:50025930. Thyroid Stim Hormone (TSH)on 02-19-2025 TSH 0.986 uIU/mL Normal 0.300-4.200 [facility] Comment on above: Performed By: #### L 501.9520, L500.4100, L506.1001, L503.0106, L501.9910, L501.9985, L100.0100, L500.4050, L3100.5310 #### [facility] [address] [place], [place], [id number] Total proteinOrdered By: Elie Christian on 02-19-2025 Protein [Mass/Vol] 7.9 g/dL 5.9-8.4 [facility] Triglycerides measurementOrd ered By: Maryellen Beam on 02-19-2025 Triglyceride [Mass/Vol] 135 mg/dL Normal [facility] Comment on above: The drugs N-Acetylcy steine and Metamizole may falsely depress this assay. Normal range: <150 mg/dLBorderline High: 150-199 mg/dLHigh: 200-499 mg/dLVery High: >500 mg/dL Result Comment: The drugs N-Acetylcysteine and Metamizole may falsely depress this assay. Normal range: <150 mg/dL Borderline High: 150-199 mg/dL High: 200-499 mg/dL Very High: >500 mg/dL Performed By: #### L 501.9520, L500.4100, L506.1001, L503.0106, L501.9910, L501.9985, L100.0100, L500.4050, L3100.5310 #### [facility] [address] [place], [place], [id number] (345) Vitamin B12on 02-19-2025 Cobalamin (Vitamin B12) [Mass/Vol] 512 pg/mL Normal 180-914 [facility] Comment on above: Performed By: #### L 501.9520, L500.4100, L506.1001, L503.0106, L501.9910, L501.9985, L100.0100, L500.4050, L3100.5310 #### [facility] [address] [place], [address] Vitamin B12 ser/plasOrdered By: Zebulun Beam on 02-19-2025 Cobalamin (Vitamin B12) [Mass/Vol] 512 pg/mL 180-914 [facility] Vitamin D,25 Hydroxyon 02-19 Vitamin D 25-OH 15.8 ng/mL Low 30-100 [facility] Comment on above: Result Comment: Vivian min D Status Deficiency: <20 ng/mL (50nmol/L) Insufficiency: 20-30 ng/mL (50-75 nmol/L) Sufficiency: 30-100 ng/mL (75-250 nmol/L) Toxicity: >100 ng/mL (>250 nmol/L) Performed By: #### L 501.9520, L500.4100, L506.1001, L503.0106, L501.9910, L501.9985, L100.0100, L500.4050, L3100.5310 #### [facility] [address] [place], [place], [id number] White blood cell (WBC) count Ordered By: Zebulun Beam on 02-19-2025 WBC (Bld) [#/Vol] 6.1 10*3/uL 4.4-11.0 [facility] 11-02-2024 [facility] Office Visit ([place]) DMITRY ROBERTSON ([id number]) 1970 M Date Time Provider Department 11/02/24 12:30 PM NAYA BUSTAMANTE During your visit today, we recorded the following information about you: Temperature Pulse Blood pressure Weight 98 degrees 68/minute 107/69 128.6 kg Naya Bustamante APRN.NEONATAL NURSE PRACTITIONER 11/02/2024 12:51 PM Addendum (L08.9) Finger infection (primary encounter diagnosis) Plan: cefADROxil (DURICEF) 500 mg capsule, mupirocin (BACTROBAN) 2 % ointment -Duricef and mupirocin. -Keep area clean and dry. Non scented antimicrobial soap and water. -May soak with epsom salt 3 times a day with warm water in 20 minute intervals. -Do not pick at the site. This can lead to a secondary infection. -Signs of worsening infection: increased in size, streaking up or down the skin, fever of 101 F or higher, or copious drainage from the site. -If no improvement please follow up in 3-5 days with primary care. -Be seen immediately or go to the ER with worsening symptoms. Naya Bustamante APRN.NEONATAL NURSE PRACTITIONER 11/02/2024 12:56 PM Signed This note was created using [employer]. Subjective Dmitry Robertson is a 54 year old male. HPI by patient: Dmitry Robertson is a 54 year old presenting to the office with the complaint of an infected left 4th finger. Got a hangnail about 6 days ago. Associated symptoms include redness, tenderness, and some tingling. Denies fever. OTC not helping. No antibiotic use in the last 60 days. ALLERGIES No Known Allergies No family history on file. Active Ambulatory Problems Ischemic cerebrovascular accident (CVA) ([facility]) Date Noted: 07/02/2024 Resolved Ambulatory Problems No Resolved Ambulatory Problems No Additional Past Medical History Review of Systems Constitutional: Negative. HENT: Negative. Eyes: Negative. Respiratory: Negative. Cardiovascular: Negative. Gastrointestinal: Negative. Endocrine: Negative. Genitourinary: Negative. Musculoskeletal: Negative. Skin: Positive for wound. Neurological: Negative. Objective BP 107/69 Pulse 68 Temp 36.7 ?C (98 ?F) (Tympanic) Wt 128.6 kg (283 lb 8.2 oz) SpO2 97% Physical Exam Vitals reviewed. Constitutional: General: He is not in acute distress. Appearance: He is not ill-appearing, toxic-appearing or diaphoretic. Pulmonary: Effort: Pulmonary effort is normal. Skin: Findings: Erythema (erythema and swelling to the left 4th finger aroundt he nail bed, no fluctuance, no streaking) present. Neurological: Mental Status: He is alert. Psychiatric: Behavior: Behavior is cooperative. Assessment and Plan (L08.9) Finger infection (primary encounter diagnosis) Plan: cefADROxil (DURICEF) 500 mg capsule, mupirocin (BACTROBAN) 2 % ointment -Duricef and mupirocin. -Keep area clean and dry. Non scented antimicrobial soap and water. -May soak with epsom salt 3 times a day with warm water in 20 minute intervals. -Do not pick at the site. This can lead to a secondary infection. -Signs of worsening infection: increased in size, streaking up or down the skin, fever of 101 F or higher, or copious drainage from the site. -If no improvement please follow up in 3-5 days with primary care. -Be seen immediately or go to the ER with worsening symptoms. The patient will pursue further outpatient evaluation with the primary care physician or another Urgent Care/Express Care as outlined in the after visit summary. The patient is agreeable to this plan of care and follow-up instructions have been explained in detail. The patient has received these instructions in written format and have expressed an understanding of the after visit summary. Medical Decision Making: Level: 4 - Moderate I spent a total of 20 minutes on the date of the service which included preparing to see the patient, [id number] patient care, completing clinical documentation, obtaining and/or reviewing separately obtained history, performing a medically appropriate examination, counseling and educating the patient/family/careg iver, and ordering medications, tests, or procedures. Allergies As of Date: 11/02/2024 (No Known Allergies) Date Reviewed: 11/02/2024 Reviewed by: Naya Bustamante APRN.NEONATAL NURSE PRACTITIONER - Fully Assessed Reason for Visit: Infection [[id number]] Cmt: Left ring finger, redness, drainage, pain x 4 days Primary Visit Diagnosis:Finger infection [L08.9] Order(s):cefADROxil (DURICEF) 500 mg capsuleTake 1 capsule by mouth two times a day for 5 days.Disp: 10 capsuleRfl: 0 mupirocin (BACTROBAN) 2 % ointmentApply 1 application to affected area three times a day for 7 days.Disp: 22 gRfl: 0 Prescriptions as of 11/02/2024 - cefADROxil (DURICEF) 500 mg capsule Take 1 capsule by mouth two times a day for 5 days. - mupirocin (BACTROBAN) 2 % ointment Apply 1 application to affected area three times a day for 7 days. Problem List As Of Date 11/02/2024 Noted Resolved Ische (more content not included)... Normal [facility] CNOVon 07-02-2024 CNOV Office Visit (LULU) DMITRY ROBERTSON ([id number]) 1970 M Date Time Provider Department 07/02/24 11:05 AM CHLOÉ JADE During your visit today, we recorded the following information about you: Temperature Pulse Respiration Blood pressure 97.4 degrees 76/minute 16/minute 123/82 Weight 125.2 kg Chloé Jade PA-C 07/02/2024 12:16 PM Signed Subjective Dmitry Robertson is a 54 year old male with a past medical history of CVA and epilepsy who presents to [facility] care today for evaluation of nasal congestion, sinus pressure, sinus pain, and headaches x 3 days. No fevers. Review of Systems Constitutional: Negative for chills, diaphoresis and fever. HENT: Positive for congestion, ear pain, sinus pressure, sinus pain and sore throat. Facial swelling: right. Eyes: Negative for discharge and redness. Respiratory: Negative for cough and shortness of breath. Skin: Negative for rash and wound. Neurological: Positive for headaches. Negative for weakness. All other systems reviewed and are negative. Objective There were no vitals taken for this visit. Physical Exam Vitals reviewed. Constitutional: General: He is not in acute distress. Appearance: Normal appearance. He is normal weight. He is not ill-appearing or toxic-appearing. Comments: The patient appears to be non-toxic, in no acute distress, and resting comfortably on the table. HENT: Head: Normocephalic and atraumatic. Right Ear: Tympanic membrane, ear canal and external ear normal. Left Ear: Tympanic membrane, ear canal and external ear normal. Nose: Congestion present. Mouth/Throat: Mouth: Mucous membranes are moist. Pharynx: Oropharynx is clear. Posterior oropharyngeal erythema present. No oropharyngeal exudate. Eyes: Extraocular Movements: Extraocular movements intact. Cardiovascular: Rate and Rhythm: Normal rate and regular rhythm. Heart sounds: Normal heart sounds. No murmur heard. No friction rub. No gallop. Pulmonary: Effort: Pulmonary effort is normal. No respiratory distress. Breath sounds: Normal breath sounds. No wheezing. Musculoskeletal: General: Normal range of motion. Cervical back: Normal range of motion. Skin: General: Skin is warm and dry. Findings: No erythema or rash. Neurological: General: No focal deficit present. Mental Status: He is alert and oriented to person, place, and time. Mental status is at baseline. Psychiatric: Mood and Affect: Mood normal. Behavior: Behavior normal. Thought Content: Thought content normal. Assessment and Plan Suspect patient symptoms are due to viral sinusitis. Patient counseled regarding suspected diagnosis and given prescriptions for Sudafed, Flonase, and prednisone. Advised to follow-up with primary care as needed for any new or worsening symptoms. ASSESSMENT/PLAN: 1. Viral sinusitis - ICD9: 473.9, 079.99, ICD10: J32.9, B97.89 (primary diagnosis) - Discussed viral etiology and rationale for treatment. - Symptomatic treatment with prn analgesia - Supportive care with fluids and rest - PSEUDOEPHEDRINE 30 MG TABLET - FLUTICASONE PROPIONATE 50 MCG/ACTUATION NASAL SPRAY,SUSPENSION - PREDNISONE 10 MG TABLET 2. Sinus pressure - ICD9: 478.19, ICD10: J34.89 - PSEUDOEPHEDRINE 30 MG TABLET - FLUTICASONE PROPIONATE 50 MCG/ACTUATION NASAL SPRAY,SUSPENSION - PREDNISONE 10 MG TABLET 3. Headaches - ICD9: 784.0, ICD10: R51.9 4. Right ear pain - ICD9: 388.70, ICD10: H92.01 Medical Decision Making: Problems: Low: Acute, uncomplicated illness or injury Risk: Minimal: Minimal risk from testing/treatment Moderate: Drug management Medical Decision Making Level: 3 - Low I spent a total of 20 minutes on the date of the service which included preparing to see the patient, [id number] patient care, completing clinical documentation, performing a medically appropriate examination, counseling and educating the patient/family/careg iver, and ordering medications, tests, or procedures. HAVEN Kaur Ariana P, PA-C 07/02/2024 12:11 PM Signed EXPRESS CARE PATIENT INFO ACUTE SINUSITIS OVERVIEW Rhinosinusitis, or more commonly sinusitis, is the medical term for inflammation (swelling) of the lining of the sinuses and nose. The sinuses are the hollow areas within the facial bones that are connected to the nasal openings. The sinuses are lined with mucous membranes, similar to the inside of the nose. There are two main types of sinusitis: acute and chronic. Acute sinusitis is inflammation that lasts for less than four weeks while chronic sinusitis lasts for more than 12 weeks. Acute sinusitis is common, affecting approximately one million people per year in the [place]. ACUTE SINUSITIS CAUSES The most common cause of acute sinusitis is a viral infection associated with the common cold. Bacterial sinusitis occu (more content not included)... Normal [facility] JOSÉ BY IFA WITH REFLEXon Nuclear Ab Ql (S) Negative Negative [facility] B. burgdorferi IgG and IgM p grace (S)on 07-13-2023 B. burgdorferi IgG+IgM Qn (S) Negative Negative [facility] VITAMIN D 25 HYDROXYon 07-13 25-hydroxyvitamin D3 [Mass/Vol] 16.5 ng/mL Low 31.0 - 80.0 ng/mL [facility] 25(OH)D3 SerPl-mCncon 2022 25-hydroxyvitamin D3 [Mass/Vol] 16.5 ng/mL Low 31.0-80.0 [facility] Comment on above: Order Comment: Cinda torres Type: BLOOD SPECIMEN Ordering Facility: [facility] Address: [address] [place] [address] Result Comment: Clas sification of 25 [place] Vitamin D status: Deficiency/Insufficiency: < or = 30 ng/ml. Sufficiency/Optimal Levels: 31-80 ng/mL Toxicity: > 100 ng/mL. Test performed by chemiluminescent immunoassay. Performed By: #### 1 989-3, 09006-9 #### [facility] CLIA [id number] [address] [place] [address] [place] JOSÉ BY IFA WITH REFLEXon Nuclear Ab Ql (S) Negative Normal Negative [facility] Comment on above: Order Comment: Cinda torres Type: BLOOD SPECIMEN Ordering Facility: [facility] Address: [address] [place] [address] Result Comment: Anti -nuclear antibody test is used as an aid in diagnosis of systemic autoimmune diseases. Where positive and clinically warranted, follow-up using disease-specific testing is recommended. Low positive titers are not uncommon with advanced age, certain chronic infections, and malignancies among others. Test methodology: Indirect fluorescence immunoassay (IFA) using HEp-2 cells. Performed By: #### A NAIFR #### [facility] CLIA [id number] [address] [place] [address] [place] B. burgdorferi IgG and IgM p grace (S)on 07-12-2023 B. burgdorferi IgG+IgM Qn (S) Negative Normal Negative [facility] Comment on above: Order Comment: Cinda torres Type: BLOOD SPECIMEN Ordering Facility: [facility] Address: [address] [place] [address] Result Comment: Rece nt infection with B. burgdorferi sensu lato cannot be excluded if the specimen collected within four weeks after the onset of signs and symptoms or within six weeks after a known tick exposure. Clinical and epidemiological correlation is required. Performed By: #### 1 989-3, 50383-8 #### [facility] CLIA [id number] [address] [facility] [id number] [address] [place] [facility] [place] Comprehensive metabolic 2000 panelon 07-12-2023 Albumin [Mass/Vol] 4.8 g/dL Normal 3.9-4.9 [facility] Comment on above: Order Comment: Speci men Type: BLOOD SPECIMEN Ordering Facility: [facility] Address: [address] [place] [address] Performed By: #### 3 016-3, 47426-2, 2132-05 #### [facility] CLIA [id number] [address] [place] [address] [place] ALP [Catalytic activity/Vol] 101 U/L Normal 38-113 [facility] Comment on above: Order Comment: Speci men Type: BLOOD SPECIMEN Ordering Facility: [facility] Address: [address] [place] [address] Performed By: #### 3 016-3, 94763-8, 2132-05 #### [facility] CLIA [id number] [address] [place] ALT [Catalytic activity/Vol] 22 U/L Normal 10-54 [facility] Comment on above: Order Comment: Speci men Type: BLOOD SPECIMEN Ordering Facility: [facility] Address: [address] [place] [address] Performed By: #### 3 016-3, 29311-5, 2132-05 #### [facility] CLIA [id number] [address] [place] [address] [place] Anion gap [Moles/Vol] 9 mmol/L Normal 9-18 [facility] Comment on above: Order Comment: Speci men Type: BLOOD SPECIMEN Ordering Facility: [facility] Address: [address] [place] [address] Performed By: #### 3 016-3, 86123-8, 2132-05 #### [facility] CLIA [id number] [address] [place] [address] [place] AST [Catalytic activity/Vol] 19 U/L Normal 14-40 [facility] Comment on above: Order Comment: Speci men Type: BLOOD SPECIMEN Ordering Facility: [facility] Address: [address] [facility] [address] Performed By: #### 3 016-3, , 2132-05 #### [facility] CLIA [id number] [address] [place] [address] [place] Bilirubin [Mass/Vol] 0.2 mg/dL Normal 0.2-1.3 [facility] Comment on above: Order Comment: Speci men Type: BLOOD SPECIMEN Ordering Facility: [facility] Address: [address] [place] [address] Performed By: #### 3 016-3, , 2132-05 #### [facility] CLIA [id number] [address] [place] Calcium [Mass/Vol] 9.6 mg/dL Normal 8.5-10.2 [facility] Comment on above: Order Comment: Speci men Type: BLOOD SPECIMEN Ordering Facility: [facility] Address: [address] [place] [address] Performed By: #### 3 016-3, , 2132-05 #### [facility] CLIA [id number] [address] [place] [address] [place] Chloride [Moles/Vol] 101 mmol/L Normal 97-105 [facility] Comment on above: Order Comment: Speci men Type: BLOOD SPECIMEN Ordering Facility: [facility] Address: [address] [place] [address] Performed By: #### 3 016-3, , 2132-05 #### [facility] CLIA [id number] [address] [place] [address] [place] CO2 [Moles/Vol] 26 mmol/L Normal 22-30 [facility] Comment on above: Order Comment: Speci men Type: BLOOD SPECIMEN Ordering Facility: [facility] Address: [address] [place] [address] Performed By: #### 3 016-3, , 2132-05 #### [facility] CLIA [id number] [address] [place] [address] [place] Creatinine [Mass/Vol] 1.10 mg/dL Normal 0.73-1.22 [facility] Comment on above: Order Comment: Cinda torres Type: BLOOD SPECIMEN Ordering Facility: [facility] Address: [address] [place] [address] Performed By: #### 3 016-3, 22439-8, 2132-05 #### [facility] CLIA [id number] [address] [place] Creatinine and Glomerular filtration rate.predicted panel (S/P/Bld) 81 mL/min/1.73m??? Normal >=60 [facility] Comment on above: Order Comment: Cinda torres Type: BLOOD SPECIMEN Ordering Facility: [facility] Address: [address] [place] [address] Result Comment: Linda mated Glomerular Filtration Rate (eGFR) is calculated using the 2020 CKD-EPI creatinine equation. This equation utilizes serum creatinine, sex, and age as parameters. The creatinine assay has traceable calibration to isotope dilution-mass spectrometry. Refer to KDIGO guidelines for clinical interpretation. In patients with unstable renal function, e.g. those with acute kidney injury, the eGFR may not accurately reflect actual GFR. Performed By: #### 3 016-3, , 2132-05 #### [facility] CLIA [id number] [address] [place] Glucose [Mass/Vol] 107 mg/dL High 74-99 [facility] Comment on above: Order Comment: Cinda torres Type: BLOOD SPECIMEN Ordering Facility: [facility] Address: [address] [place] [address] Result Comment: The [place] Diabetes Association (ADA) provides guidance for cutoff values for fasting glucose and random glucose. The ADA defines fasting as no caloric intake for at least 8 hours. Fasting plasma glucose results between 100 to 125 mg/dL indicate increased risk for diabetes (prediabetes). Fasting plasma glucose results greater than or equal to 126 mg/dL meet the criteria for diagnosis of diabetes. In the absence of unequivocal hyperglycemia, results should be confirmed by repeat testing. In a patient with classic symptoms of hyperglycemia or hyperglycemic crisis, random plasma glucose results greater than or equal to 200 mg/dL meet the criteria for diagnosis of diabetes. Reference: Standards of Medical Care in Diabetes 2016, [place] Diabetes Association. Diabetes Care. 2016.39(Suppl 1). Performed By: #### 3 016-3, , 2132-05 #### [facility] CLIA [id number] [address] [place] [address] [place] Potassium [Moles/Vol] 4.5 mmol/L Normal 3.7-5.1 [facility] Comment on above: Order Comment: Speci men Type: BLOOD SPECIMEN Ordering Facility: [facility] Address: [address] [place] [address] Performed By: #### 3 016-3, , 2132-05 #### [facility] CLIA [id number] [address] [place] [address] [place] Protein [Mass/Vol] 7.8 g/dL Normal 6.3-8.0 [facility] Comment on above: Order Comment: Speci men Type: BLOOD SPECIMEN Ordering Facility: [facility] Address: [address] [place] [address] Performed By: #### 3 016-3, , 2132-05 #### [facility] CLIA [id number] [address] [place] [address] [place] Sodium [Moles/Vol] 136 mmol/L Normal 136-144 [facility] Comment on above: Order Comment: Speci men Type: BLOOD SPECIMEN Ordering Facility: [facility] Address: [address] [place] [address] Performed By: #### 3 016-3, , 2132-05 #### [facility] CLIA [id number] [address] [place] [address] [place] Urea nitrogen [Mass/Vol] 13 mg/dL Normal 9-24 [facility] Comment on above: Order Comment: Speci men Type: BLOOD SPECIMEN Ordering Facility: [facility] Address: [address] [place] [address] Performed By: #### 3 016-3, , 2132-05 #### [facility] CLIA [id number] [address] [place] [address] [place] Albumin [Mass/Vol] 4.8 g/dL 3.9 - 4.9 g/dL [facility] ALP [Catalytic activity/Vol] 101 U/L 38 - 113 U/L [facility] ALT [Catalytic activity/Vol] 22 U/L 10 - 54 U/L [facility] Anion gap [Moles/Vol] 9 mmol/L 9 - 18 mmol/L [facility] AST [Catalytic activity/Vol] 19 U/L 14 - 40 U/L [facility] Bilirubin [Mass/Vol] 0.2 mg/dL 0.2 - 1 .3 mg/dL [facility] Calcium [Mass/Vol] 9.6 mg/dL 8.5 - 10. 2 mg/dL [facility] Chloride [Moles/Vol] 101 mmol/L 97 - 10 5 mmol/L [facility] CO2 [Moles/Vol] 26 mmol/L 22 - 30 mmol/L [facility] Creatinine [Mass/Vol] 1.10 mg/dL 0.73 - 1.22 mg/dL [facility] Estimated Glomerular Filtration Rate 81 mL/min/1.73m >=60 mL/min/1.73m [facility] Glucose [Mass/Vol] 107 mg/dL High 74 - 99 mg/dL [facility] Potassium [Moles/Vol] 4.5 mmol/L 3.7 - 5.1 mmol/L [facility] Protein [Mass/Vol] 7.8 g/dL 6.3 - 8.0 g/dL [facility] Sodium [Moles/Vol] 136 mmol/L 136 - 144 mmol/L [facility] Urea nitrogen [Mass/Vol] 13 mg/dL 9 - 24 mg/d L [facility] ESR Westergren method (Bld) [Velocity]on 07-12-2023 ESR (Bld) [Velocity] 8 mm/h 0 - 15 mm/hr [facility] ESR (Bld) [Velocity] 8 mm/h Normal 0-15 [facility] Comment on above: Order Comment: Speci men Type: BLOOD SPECIMEN Ordering Facility: [facility] Address: [address] [place] [address] Performed By: #### 4 537-7 #### [facility] CLIA [id number] [address] [place] [address] [place] PROTEIN ELECTROPHORESIS SERU M (P)on 07-12-2023 Albumin [Mass/Vol] 4.43 g/dL Normal 3.43-5.41 [facility] Comment on above: Order Comment: Speci men Type: BLOOD SPECIMEN Ordering Facility: [facility] Address: [address] [place] [address] Performed By: #### L [id number] #### [facility] CLIA [id number] [address] [place] [address] [place] Alpha 1 globulin Elph [Mass/Vol] 0.26 g/dL Normal 0.18-0.43 [facility] Comment on above: Order Comment: Speci men Type: BLOOD SPECIMEN Ordering Facility: [facility] Address: [address] [place] [address] Performed By: #### L [id number] #### [facility] CLIA [id number] [address] [place] [address] [place] Alpha 2 globulin Elph [Mass/Vol] 0.49 g/dL Normal 0.42-0.98 [facility] Comment on above: Order Comment: Speci men Type: BLOOD SPECIMEN Ordering Facility: [facility] Address: [address] [place] [address] Performed By: #### L [id number] #### [facility] CLIA [id number] [address] [place] [address] [place] Beta globulin Elph [Mass/Vol] 0.96 g/dL Normal 0.61-1.17 [facility] Comment on above: Order Comment: Speci men Type: BLOOD SPECIMEN Ordering Facility: [facility] Address: [address] [place] [address] Performed By: #### L [id number] #### [facility] CLIA [id number] [address] [place] [address] [place] Gamma globulin Elph [Mass/Vol] 1.26 g/dL Normal 0.53-1.51 [facility] Comment on above: Order Comment: Speci men Type: BLOOD SPECIMEN Ordering Facility: [facility] Address: [address] [place] [address] Performed By: #### L [id number] #### [facility] CLIA [id number] [address] [place] M-PROTEIN LOCATION Normal [facility] Comment on above: Order Comment: Speci men Type: BLOOD SPECIMEN Ordering Facility: [facility] Address: [address] [place] [address] Result Comment: Not Applicable. Performed By: #### L [id number] #### [facility] CLIA [id number] [address] [place] [address] [place] Protein Fractions [Interp] No definitive M protein is identified on protein electrophoresis. Normal No definitive M protein is identified on protein electrophores is. [facility] Comment on above: Order Comment: Speci men Type: BLOOD SPECIMEN Ordering Facility: [facility] Address: [address] [place] [address] Performed By: #### L [id number] #### [facility] CLIA [id number] [address] [place] [address] [place] Protein.monoclonal Elph [Mass/Vol] 0.00 g/dL Normal <=0.00 [facility] Comment on above: Order Comment: Speci men Type: BLOOD SPECIMEN Ordering Facility: [facility] Address: [address] [place] [address] Performed By: #### L [id number] #### [facility] CLIA [id number] [address] [place] SPE STAFF REVIEW Reviewed by Torey Chopra MD, Ph.D ([id number]) Normal [facility] Comment on above: Order Comment: Speci men Type: BLOOD SPECIMEN Ordering Facility: [facility] Address: [address] [place] [address] Performed By: #### L [id number] #### [facility] CLIA [id number] [address] [place] [address] [place] Prot SerPl-mCncon 07-12-2023 Protein [Mass/Vol] 7.4 g/dL Normal 6.3-8.0 [facility] Comment on above: Order Comment: Speci men Type: BLOOD SPECIMEN Ordering Facility: [facility] Address: [address] [place] [address] Performed By: #### 3 051-0, 2885-2 #### [facility] CLIA [id number] [address] [place] [address] [place] T3 FREE BLDon 07-12-2023 Free T3 [Mass/Vol] 3.0 pg/mL 2.3 - 4.1 pg/mL [facility] T3Free SerPl-mCncon 07-12-20 Free T3 [Mass/Vol] 3.0 pg/mL Normal 2.3-4.1 [facility] Comment on above: Order Comment: Speci men Type: BLOOD SPECIMEN Ordering Facility: [facility] Address: [place] [address] Performed By: #### 3 051-0, 2885-2 #### [facility] CLIA [id number] [address] [place] [address] [place] TSH BLDon 07-12-2023 TSH Qn 1.390 m[IU]/L 0.270 - 4.200 mIU/L [facility] TSH SerPl-aCncon 07-12-2023 TSH Qn 1.390 m[IU]/L Normal 0.270-4.200 [facility] Comment on above: Order Comment: Speci men Type: BLOOD SPECIMEN Ordering Facility: [facility] Address: [place] [address] Performed By: #### 3 016-3, 81909-8, 2132-9 #### [facility] CLIA [id number] [address] [place] [address] [place] VITAMIN B12 BLOODon 07-12-20 23 Cobalamin (Vitamin B12) [Mass/Vol] 423 pg/mL 232 - 1,245 pg/mL [facility] Vit B12 SerPl-mCncon 023 Cobalamin (Vitamin B12) [Mass/Vol] 423 pg/mL Normal 232-1245 [facility] Comment on above: Order Comment: Speci men Type: BLOOD SPECIMEN Ordering Facility: [facility] Address: [address] [place], [place] [address] Performed By: #### 3 016-3, 35584-1, 2132-9 #### [facility] CLIA [id number] [address] [place] [address] [place] CR Hip w/ Pelvis 2 or 3 View s Righton 09-18-2021 CR Hip w/ Pelvis 2 or 3 Views Right Patient Name: DMITRY ROBERTSON Diagnostic Radiology ACCESSION EXAM DATE/TIME PROCEDURE ORDERING PROVIDER [id number] 09/18/2021 10:15 EST CR Hip w/ Pelvis 2 or 3 MD PORFIRIO, SARAI [place] Views Right n CPT code 72912 Reason For Exam (CR Hip w/ Pelvis 2 or 3 Views Right n) 2 month history of progressive right hip pain Report RIGHT HIP CLINICAL INDICATION: Right hip pain A single AP view of the pelvis followed by AP and lateral views of the right hip were obtained. COMPARISON: None FINDINGS: No fracture or dislocation of the pelvis or right hip is identified. The right hip joint space is relatively well-preserved. The sacroiliac joints appear grossly unremarkable. No lytic or blastic bony lesions are seen. IMPRESSION: No fracture or dislocation of the pelvis or right hip is seen. Report Dictated on Final Dictating Physician: MD ZARATE JONATHAN R Signed Date and Time: 09/18/2021 10:21 am Signed by: MD ZARATE JONATHAN R Transcribed Date and Time: 09/18/2021 10:[address] [facility] CR Ribs w/ PA Chest Righton 11-17-2020 CR Ribs w/ PA Chest Right Patient Name: DMITRY ROBERTSON Diagnostic Radiology ACCESSION EXAM DATE/TIME PROCEDURE ORDERING PROVIDER [id number] 11/17/2020 12:41 EDT CR Ribs w/ PA Chest HOWIE ALANIZ CPT code 50973 Reason For Exam (CR Ribs w/ PA Chest Right) fall right upper rib pain Report Examination: PA chest and right ribs Clinical Indication: fall right upper rib pain Comparison: None Findings: AP chest along with 4 views of the right ribs. Lungs appear normally inflated. Benign calcified granulomas left upper and right lower lung. Mild apical pleural thickening. There is no focal consolidation, effusion, or pulmonary edema identified on the AP view. The cardiomediastinal silhouette is normal in size and configuration. No gross osseous or soft tissue abnormality is appreciated. There is no evidence of displaced rib fracture or pneumothorax. No periostitis is identified. Impression: No evidence of displaced right-sided rib fracture or pneumothorax. No acute cardiopulmonary process. Report Dictated on Final Dictating Physician: MD WORKMAN ANTHONY J Signed Date and Time: 11/17/2020 1:12 pm Signed by: MD WORKMAN ANTHONY J Transcribed Date and Time: 11/17/2020 1:13 Normal [facility] Emergency Room Note on 10-11-2017 [place] Emergency Room Note Normal [facility] [place] Patient Summary Documentson 10-11-2017 Patient Summary Documents Normal [facility] [place] Vital Signs Date Time Vital Sign Value Performing Clinician Facility 02-27-2025 17:55-0400 Diastolic blood pressure 91 mm[Hg] Zebulun Beam OFFICE SERVICES CLERK-C Work Phone: [facility] 02-27-2025 17:55-0400 Systolic blood pressure 135 mm[Hg] Zebulun Beam OFFICE SERVICES CLERK-C Work Phone: [facility] 02-27-2025 15:55-0400 SaO2% (BldA) [Mass fraction] 96 % Zebulun Beam OFFICE SERVICES CLERK-C Work Phone: [facility] 02-27-2025 14:32-0400 Body height 190.5 cm Zebulun Beam OFFICE SERVICES CLERK-C Work Phone: [facility] 02-27-2025 14:32-0400 Body mass index (BMI) [Ratio] 34.9 kg/m2 Zebulun Beam OFFICE SERVICES CLERK-C Work Phone: [facility] 02-27-2025 14:32-0400 Body temperature 97.6 [degF] Zebulun Beam OFFICE SERVICES CLERK-C Work Phone: [facility] 02-27-2025 14:32-0400 Body weight 127 kg Zebulun Beam OFFICE SERVICES CLERK-C Work Phone: [facility] 02-27-2025 14:32-0400 Heart rate 73 /min Zebulun Beam OFFICE SERVICES CLERK-C Work Phone: [facility] 02-27-2025 14:32-0400 Respiratory rate 16 /min Zebulun Beam OFFICE SERVICES CLERK-C Work Phone: [facility] 11-02-2024 12:41-0500 Body temperature 98.01 [degF] Naya Bustamante TEXTILE COLORIST FORMULATOR.NEONATAL NURSE PRACTITIONER Work Phone: [facility] 11-02-2024 12:41-0500 Body weight 128.6 kg Naya Bustamante TEXTILE COLORIST FORMULATOR.NEONATAL NURSE PRACTITIONER Work Phone: [facility] 11-02-2024 12:41-0500 Diastolic blood pressure 69 mm[Hg] Naya Bustamante TEXTILE COLORIST FORMULATOR.NEONATAL NURSE PRACTITIONER Work Phone: [facility] 11-02-2024 12:41-0500 Heart rate 68 /min Naya Bustamante TEXTILE COLORIST FORMULATOR.NEONATAL NURSE PRACTITIONER Work Phone: [facility] 11-02-2024 12:41-0500 SaO2% (BldA) [Mass fraction] 97 % Naya Bustamante TEXTILE COLORIST FORMULATOR.NEONATAL NURSE PRACTITIONER Work Phone: [facility] 11-02-2024 12:41-0500 Systolic blood pressure 107 mm[Hg] Naya Bustamante TEXTILE COLORIST FORMULATOR.NEONATAL NURSE PRACTITIONER Work Phone: [facility] 07-02-2024 12:00-0400 Body temperature 97.39 [degF] Chloé Jade PA-C Work Phone: [facility] 07-02-2024 12:00-0400 Body weight 125.2 kg Chloé Wormald PA-C Work Phone: [facility] 07-02-2024 12:00-0400 Diastolic blood pressure 82 mm[Hg] Chloé Wormald PA-C Work Phone: [facility] 07-02-2024 12:00-0400 Heart rate 76 /min Chloé Wormald PA-C Work Phone: [facility] 07-02-2024 12:00-0400 Respiratory rate 16 /min Chloé Wormald PA-C Work Phone: [facility] 07-02-2024 12:00-0400 SaO2% (BldA) [Mass fraction] 97 % Chloé Wormald PA-C Work Phone: [facility] 07-02-2024 12:00-0400 Systolic blood pressure 123 mm[Hg] Chloé Wormald PA-C Work Phone: [facility] 07-12-2023 10:23-0500 Body weight 122.02 kg Howie Nuñez Jr., MD Work Phone: [facility] 07-12-2023 10:23-0500 Diastolic blood pressure 85 mm[Hg] Howie Nuñez Jr., MD Work Phone: [facility] 07-12-2023 10:23-0500 Heart rate 68 /min Howie Nuñez Jr., MD Work Phone: [facility] 07-12-2023 10:23-0500 SaO2% (BldA) [Mass fraction] 97 % Howie Nuñez Jr., MD Work Phone: [facility] 07-12-2023 10:23-0500 Systolic blood pressure 133 mm[Hg] Howie Nuñez Jr., MD Work Phone: [facility] Encounters Encounter Date Encounter Type Care Provider Facility Start: 04-16-2025 End: 04-16-2025 ambulatory Zebulun Beam OFFICE SERVICES CLERK-C Work Phone: -cat scan [facility] Start: 04-16-2025 End: 04-16-2025 Patient encounter procedure Zebulun Beam OFFICE SERVICES CLERK-C -Cat Scan [facility] Work Phone: Start: 04-16-2025 End: 04-30-2025 Telephone encounter Neurology Provider Neurology Comment on above: Future Appointment ( [place] Any) Start: 04-16-2025 End: 04-16-2025 ambulatory Zebulun Beam VSC Facility:[facility] Start: 04-07-2025 End: 04-07-2025 Transcribe Orders Zebulun Beam OFFICE SERVICES CLERK Other Phone: Referring Physician Comment on above: Headaches (Primary D x) Start: 04-01-2025 End: 04-01-2025 ambulatory Zebulun Beam OFFICE SERVICES CLERK-C Work Phone: -MRI - [facility] Start: 04-01-2025 End: 04-01-2025 Patient encounter procedure Zebulun Beam OFFICE SERVICES CLERK-C -MRI - [facility] Work Phone: Start: 04-01-2025 End: 04-01-2025 ambulatory Zebulun Beam VSC Facility:[facility] Start: 03-11-2025 End: 03-11-2025 ambulatory Zebulun Beam OFFICE SERVICES CLERK-C Work Phone: -Laboratory Start: 03-11-2025 End: 03-11-2025 Patient encounter procedure Zebulun Beam OFFICE SERVICES CLERK-C -Laboratory Work Phone: Start: 03-11-2025 End: 03-11-2025 ambulatory Zebulun Beam VSC Facility:[facility] Start: 02-27-2025 End: 02-27-2025 Emergency department patient visit Zebulun Beam OFFICE SERVICES CLERK-C Work Phone: -Emergency Department Work Phone: Start: 02-19-2025 End: 02-19-2025 ambulatory Zebulun Beam OFFICE SERVICES CLERK-C Work Phone: [facility] Work Phone: Start: 02-19-2025 End: 02-19-2025 Patient encounter procedure Zebulun Beam OFFICE SERVICES CLERK-C -Laboratory Julianne Bunch Start: 02-19-2025 End: 02-19-2025 ambulatory Maryellen Christian [facility] Facility:[facility] Start: 11-02-2024 End: 11-02-2024 ambulatory Facility:[facility] Start: 11-02-2024 End: 11-02-2024 Office outpatient visit 25 minutes Naya Bustamante APRN.CNP Work Phone: [facility] Comment on above: Finger infection (Pr imary Dx) Start: 07-02-2024 End: 07-02-2024 ambulatory SELF Facility:[facility] Start: 07-02-2024 End: 07-02-2024 Patient encounter procedure Chloé Jade PA-C Work Phone: [facility] Comment on above: Viral sinusitis (Yary migel Dx); Sinus pressure; Headaches; Right ear pain Start: 08-02-2023 End: 08-02-2023 ambulatory [facility] Work Phone: Start: 08-02-2023 End: 08-02-2023 Patient encounter procedure [facility] - [facility] Work Phone: Start: 07-13-2023 Telephone encounter Howie Nuñez MD Work Phone: Neurology Comment on above: Results Start: 07-12-2023 End: 07-13-2023 ambulatory HOWIE NUÑEZ JR Facility:[facility] Start: 07-12-2023 End: 07-12-2023 Patient encounter procedure Howie Nuñez MD Work Phone: Neurology Comment on above: Hot flashes (Primary Dx); Nonruptured cerebral aneurysm; Cerebral infarction, unspecified mechanism (HCC); History of seizure; History of traumatic head injury; Family history of stroke; History of stroke; History of meningitis; Migraine headaches; Cognitive impairment; Snoring; REM behavioral disorder; Temperature intolerance; Neuropathy - (NOS); Vitamin D deficiency Start: 05-17-2023 Telephone encounter Howie Nuñez MD Work Phone: Neurology Comment on above: Request Outside [facility] Start: 12-28-2021 End: 12-28-2021 [facility] Start: 11-24-2021 Registered Recurring [facility] Start: 11-18-2021 End: 11-18-2021 Patient encounter procedure [facility]-Radiology, [facility] Start: 10-11-2017 End: 10-11-2017 Emergency department patient visit PAVEL TOUSSAINT Facility:B Procedures Date Procedure Procedure Detail Performing Clinician Start: 04-16-2025 Computed tomography of abdomen and pelvis with contrast Zebulun Beam OFFICE SERVICES CLERK-C Work Phone: Start: 04-01-2025 MRI of brain with contrast Zebulun Beam OFFICE SERVICES CLERK-C Work Phone: Start: 03-11-2025 Follicle stimulating hormone measurement Zebulun Beam OFFICE SERVICES CLERK-C Work Phone: Comment on above: FEMALE:Follicular: 1 .4 - 18.1 mIU/mLMidcycle: 3.4 - 33.4 mIU/mLLuteal: 1.5 - 9.1 mIU/mLPost Menopause: 23.0 - 116.3 mIU/mLMALE: 1.4 - 18.1 mIU/mL Start: 02-27-2025 Estimated creatinine clearance Zebulun Beam OFFICE SERVICES CLERK-C Work Phone: Start: 02-27-2025 CT angiography of head Zebulun Beam OFFICE SERVICES CLERK-C Work Phone: Start: 02-19-2025 Prostate specific an tigen measurement Zebulun Beam OFFICE SERVICES CLERK-C Work Phone: Comment on above: This test was perfor med using the [employer] tPSA method. Measured values of a patient sample can vary depending on the testing procedure used. PSA values determined on patient samples by different testing procedures cannot be used interchangeably. If there is a change in PSA assays while monitoring therapy, sequential testing should be performed to confirm baseline values. Start: 02-19-2025 Vitamin D, 25-hydrox y measurement Zebulun Beam OFFICE SERVICES CLERK-C Work Phone: Comment on above: Vitamin D StatusDefi ciency: <20 ng/mL (50nmol/L)Insufficiency: 20-30 ng/mL (50-75 nmol/L)Sufficiency: 30-100 ng/mL (75-250 nmol/L)Toxicity: >100 ng/mL (>250 nmol/L) Start: 08-02-2023 Magnetic resonance angiography of head without contrast Start: 08-02-2023 MRI of brain with contrast Start: 07-19-2023 Lipid 1996 panel - S valorie or Plasma Chloé Jade PA-C Work Phone: Start: 11-18-2021 Plain x-ray of pelvi s and lower extremity Start: 11-18-2021 X-ray of lumbar spin e, two or three views Plan of Treatment Date Care Activity Detail Author Start: 07-19-2028 Lipid panel Lipid Screening [facility] Start: 07-19-2026 Diabetes Screening Diabetes Screenin [facility] Start: 07-12-2026 Diabetes Screening Diabetes Screenin g [facility] Start: 05-05-2025 Influenza vaccination Influenza Vacc ine (#1) [facility] Start: 05-01-2025 ambulatory Ambulatory Facility:[facility] Start: 02-27-2025 [facility] Start: 05-05-2024 Covid-19 Vaccine ( season) Covid-19 Vaccine ( season) [facility] Start: 05-05-2024 Influenza vaccination Influenza Vacc ine (#1) [facility] Start: 07-12-2023 End: 10-11-2023 CATECHOL, FRACT, 24-HR UR W/O CREATININE CATECHOL, FRACT, 24-HR UR W/O CREATININE Lab Routine Hot flashes Expected: 07/12/2023, Expires: 10/11/2023 [facility] Work Phone: Comment on above: Expected: 07/12/2023 , Expires: 10/11/2023 Start: 05-05-2023 Influenza vaccination Influenza Vacc ine (#1) [facility] Start: 09-04-2022 Depression Assessment Depression Ass essment [facility] Start: 2022 Pneumococcal Vaccine : 50+ (1 of 1 - PCV) Pneumococcal Vaccine: 50+ (1 of 1 - PCV) [facility] Start: 2022 Shingrix Vaccine (1 of 2) Shingrix Vaccine (1 of 2) [facility] Start: 2017 Cologuard (FIT-DNA) Cologuard (FIT-D NA) [facility] Start: 2017 Colonoscopy Colonoscopy [facility] Start: 2017 Colorectal Cancer Screening Colorectal Cancer Screening [facility] Start: [address] COLONOGRAPHY [facility] Start: 2017 Diabetes Screening Diabetes Screenin g [facility] Start: 2017 Fecal Occult Blood Fecal Occult Bloo d [facility] Start: 2017 Screening for malign ant neoplasm of colon [facility] Start: 2017 SIGMOIDOSCOPY SIGMOIDOSCOPY [facility] Start: 06-04-2011 Medicare Annual Well ness Visit Medicare Annual Wellness Visit [facility] Start: 2007 Lipid 1996 panel - S valorie or Plasma Lipid Screening [facility] Start: 1991 Hepatitis B Vaccine (1 of 3 - 19+ 3-dose series) Hepatitis B Vaccine (1 of 3 - 19+ 3-dose series) [facility] Start: 1991 Urine microalbumin profile DTaP,Tdap,Td Vaccine (1 - Tdap) [facility] Start: 1990 Anxiety Screening Anxiety Screening [facility] Start: 1990 Depression Screening Depression Scre ening [facility] Start: 1990 Hepatitis C Screening Hepatitis C [facility] Start: 1990 Hepatitis C screening Hepatitis C [facility] Start: 1990 HIV Screening HIV Screening [facility] Start: 1990 HIV screening HIV Screening [facility] Start: 1972 Covid-19 Vaccine (#1) Covid-19 Vacci ne (#1) [facility] Start: 1972 Hepatitis B Vaccine (1 of 3 - 3-dose series) Hepatitis B Vaccine (1 of 3 - 3-dose series) [facility] 5-Hydroxyindoleaceta te [Mass/time] in 24 hour Urine HIAA-5 QUANT 24H UR Lab Routine Hot flashes Ordered: 07/12/2023 [facility] Work Phone: Comment on above: Ordered: 07/12/2023 End: 07-12-2024 EPIL EEG ROUTINE EPIL EEG ROUTINE NEUROLOGY Routine Hot flashes History of seizure History of traumatic head injury History of stroke History of meningitis 1 Occurrences starting 07/12/2023 until 07/12/2024 [facility] Work Phone: Comment on above: 1 Occurrences starti ng 07/12/2023 until 07/12/2024 METANEPHRINES 24H UR METANEPHRIN ES 24H UR Lab Routine Hot flashes Ordered: 07/12/2023 [facility] Work Phone: Comment on above: Ordered: 07/12/2023 End: 08-10-2024 Mra head w/o contrst material MRA BRAIN WO IVCON Radiology Routine Nonruptured cerebral aneurysm 1 Occurrences starting 07/12/2023 until 08/10/2024 [facility] Work Phone: Comment on above: 1 Occurrences starti ng 07/12/2023 until 08/10/2024 End: 08-10-2024 Mri brain brain stem w/o contrast material MRI BRAIN WO IVCON Radiology Routine Nonruptured cerebral aneurysm Cerebral infarction, unspecified mechanism (HCC) 1 Occurrences starting 07/12/2023 until 08/10/2024 [facility] Work Phone: Comment on above: 1 Occurrences starti ng 07/12/2023 until 08/10/2024 OUTSIDE VENDOR CARDI AC OUTPATIENT EXTENDED RHYTHM RECORDING (WITHOUT TELEMETRY) OUTSIDE VENDOR CARDIAC OUTPATIENT EXTENDED RHYTHM RECORDING (WITHOUT TELEMETRY) Holter Routine Hot flashes History of stroke Ordered: 07/12/2023 [facility] Work Phone: Comment on above: Ordered: 07/12/2023 Patient Education Types of Brain Aneurysms ED, Migraine (Classical) [facility] Work Phone: Patient referral [facility] Work Phone: [facility] Payers Date Payer Category Payer Self-pay [id number] 2017 Medicare [id number] 2011 Medicare [id number] 2011 Medicare [id number] Unknown [id number] Unknown [id number] Unknown [id number] Unknown [id number] [id number] Unknown [id number] Unknown [id number] [id number] Social History Date Type Detail Facility Start: 05-15-2015 End: 10-26-2022 Tobacco smoking status FLIS Unknown if ever smoked [facility] Start: 1970 Sex Assigned At Male W [facility] Start: 1970 Sex Assigned At Not on file [facility] Start: 07-12-2023 Gender identity Not on file [facility] Start: 07-12-2023 History of Social function [facility] Start: 05-21-2015 Adult Depression Screening Assessment 0 [facility] Start: 05-14-2015 Occasional [facility] Start: 05-14-2015 Marijuana [place] [facility] Start: 05-14-2015 Cigarettes [facility] Start: 10-26-2022 End: 02-27-2025 Tobacco smoking status NHIS Smokes tobacco daily (finding) [facility] Mental Status Date Assessment Result Facility 02-27-2025 Cognitive function Level Of Cons ciousness Awake;Alert;Appropriate;Follow s Commands [facility] Work Phone: Clinical Notes 05-17-2023 to 04-19-2025 Telephone Encounter - Saw Young - 04/16/2025 10:37 AM EDTTelephone Encounter - Saw Young - 04/16/2025 10:37 AM EDTTelephone Encounter - Saw Young - 04/16/2025 10:21 AM EDT Note Date & Type Note Facility 04-19-2025 Radiology Diagnostic study note [facility] Imaging Services [address] [place] [address] Abdomen/Pelvis WITH Contrast MR#: [id number] Acct: [id number] Name: DMITRY ROBERTSON Rep #: [id number] : 1970 M 55 From: Carmen Vines MD PCP: Maryellen Christian [facility] OFFICE SERVICES CLERK-C Status: REG CLI Study:Abdomen/Pelvis WITH Contrast Date of Ex am: 04/16/25 Exam# [id number] Ordering Dr: Elie Christian morgan [facility] OFFICE SERVICES CLERK-C PROCEDURE: ABDOMEN/PELVIS WITH CONTRAST, 04/16/2025 REASON FOR EXAM: LLQ PAIN TECHNIQUE: CT abdomen and pelvis was performed with IV contrast. Multiplanar reformats weregenerated. Oral contrast administered. IV contrast: Isovue 370 VOLUME: 94mL RADIATION DOSE SUMMARY: CTDlvol: 9.97+ 23.95 mGy DLP: 1445.56 mGycm One or more dose reduction techniques were used (e.g., Automated exposure control, adjustment of the mA and/or kV according to patient size, use of iterative reconstruction technique). COMPARISON: None FINDINGS: Mild/moderate limitation through the lung bases and far upper abdomen. Note that the exam is slightly limited by essentially late arterial phase of contrast timing with poorly opacified hepatic veins. Lung bases: Granuloma in the RIGHT lung base 9 x 6 mm noncalcified nodule in theRIGHT lung base. 5 x 4 mm nodule in the LEFT lung base. Mild atelectasis/scarring.. Liver: Steatosis. Spleen: Granulomas. 13.7 cm coronal. Gallbladder: Unremarkable. Pancreas: Unremarkable. Adrenals: Unremarkable. Kidneys: Unremarkable. Bowel: Unremarkable. Normal caliber appendix. Lymph nodes: Unremarkable. Vasculature: Atherosclerosis.. Peritoneum: Unremarkable. Bladder: Underdistended and suboptimally evaluated, grossly unremarkable. Reproductive Organs: Unremarkable. Body Wall: Unremarkable. Bones: Unremarkable. CT/Abdomen/Pelvis WITH Contrast IMPRESSION: 1. No acute findings. 2. Indeterminate bibasilar pulmonary nodules up to 7.5 mm average axial diameter, suboptimally visualized due to motion artifact. These warrant clinical follow-up. Recommend CT chest unless recently performed elsewhere. 3. Diffuse hepatic steatosis and mild splenomegaly. Correlate for clinical and laboratory evidence of chronic liver disease. 4. Additional description as above. Reading Location: [id number] CC: Maryellen [facility] JIM-Sandra Christian ~ Cattle Farmer: Signed [facility] 04-16-2025 Telephone encount er Note Images from the original note were not included. OSH imaging/records received from [facility]: April 16, 2025 - Records available in Scanned Docs Images [facility] 04-16-2025 Miscellaneous Notes Formattin g of this note might be different from the original. Images from the original note were not included. OSH imaging/records received from [facility]: April 16, 2025 - Records available in Scanned Docs Images ENDOVASCULAR INTAKE Patient name: Dmitry Robertson When was triage completed? April 16 What diagnosis are you looking to be seen for within our center? 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 Nuñez in [place] years ago Confirmed patient had 6 mini strokes Is there a specific provider who is requesting you see our center? (referring provider) Maryellen Christian NP Has your referring provider recommended a specific provider in our department? No Is this a second opinion? Have you been recommended for surgery or procedure for this condition? Not a second opinion. Not recommended for surgery/procedure (told surgery is not a possibility). If yes, have you scheduled this procedure at another facility? If yes, when is the procedure scheduled? Where have you had any imaging for this diagnosis in the past year? These include images such as ultrasounds, MRIs, CTs, or angiograms of the head, brain, neck, carotids, or spine. [facility] (2024 Records and Images) Have you had any surgeries or procedures for this condition? No If yes, where was it done and when? Who performed the surgery or procedure? Does any of the following pertain to you? Family history of brain aneurysm? Yes, oldest sister passed from a brain aneurysm at 22. Brother has clotting and vascular issues. Polycystic kidney disease or other genetic kidney disease? Not applicable if chronic kidney disease. No Connective tissue disease such as fibromuscular dysplasia or Luis Enrique-Danlos Syndrome? No Do you prefer in-person or virtual appointment? Out of state residents must be in [place] at the time of their virtual visit. In Person Specific day of the week or time of day? Any Time, as close to [place] as possible, does not want to come to [place] Do you prefer to be notified of your appointment by phone or virtual tweens ltdhart message? [phone] (Claudette) Thank you for speaking with me today. Your information will now be forwarded to our endovascular advance practice provider team to review and provide scheduling recommendations. Please allow 3 business days to hear back from us. If you do not, feel free to call back [phone] for an update. documented in this encounter [facility] 04-16-2025 Telephone encount er Note ENDOVASCULAR INTAKE Patient name: Dmitry Robertson When was triage completed? April 16 What diagnosis are you looking to be seen for within our center? 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 Nuñez in [place] years ago Confirmed patient had 6 mini strokes Is there a specific provider who is requesting you see our center? (referring provider) Maryellen Christian NP Has your referring provider recommended a specific provider in our department? No Is this a second opinion? Have you been recommended for surgery or procedure for this condition? Not a second opinion. Not recommended for surgery/procedure (told surgery is not a possibility). If yes, have you scheduled this procedure at another facility? If yes, when is the procedure scheduled? Where have you had any imaging for this diagnosis in the past year? These include images such as ultrasounds, MRIs, CTs, or angiograms of the head, brain, neck, carotids, or spine. [facility] (2024 Records and Images) Have you had any surgeries or procedures for this condition? No If yes, where was it done and when? Who performed the surgery or procedure? Does any of the following pertain to you? Family history of brain aneurysm? Yes, oldest sister passed from a brain aneurysm at 22. Brother has clotting and vascular issues. Polycystic kidney disease or other genetic kidney disease? Not applicable if chronic kidney disease. No Connective tissue disease such as fibromuscular dysplasia or Luis Enrique-Danlos Syndrome? No Do you prefer in-person or virtual appointment? Out of state residents must be in [place] at the time of their virtual visit. In Person Specific day of the week or time of day? Any Time, as close to [place] as possible, does not want to come to [place] Do you prefer to be notified of your appointment by phone or virtual tweens ltdhart message? [phone] (Claudette) Thank you for speaking with me today. Your information will now be forwarded to our endovascular advance practice provider team to review and provide scheduling recommendations. Please allow 3 business days to hear back from us. If you do not, feel free to call back [phone] for an update. [facility] 02-27-2025 Discharge summary [facility] 02-27-2025 Radiology Diagnostic study note [facility] Imaging Services [address] [place], [place] [id number] CTA Head W/WO Contrast MR#: [id number] Acct: [id number] Name: DMITRY ROBERTSON Rep #: [id number] : 1970 M 54 From: Carmen Vines MD PCP: Maryellen Christian [facility] OFFICE SERVICES CLERK-C Status: REG ER Study:CTA Head W/WO Contrast Date of Exam: 02/27/25 Exam# [id number] Ordering Dr: Elbert Serna DO PROCEDURE: CT HEAD WITHOUT CONTRAST AND CTA HEAD W/WO CONTRAST 02/27/2025 REASON FOR EXAM: HX OF BRAIN ANEURYSM, HEADACHE TECHNIQUE: CT head was performed without IV contrast. CTA head was performed with IV contrast. Multiplanar reformats as well as MIP and 3D reconstructions were generated. IV contrast: Isovue 370 VOLUME: 100mL RADIATION DOSE SUMMARY: CTDlvol: 44.99+ 13.44+ 21.86 mGy DLP: 1326.91 mGycm One or more dose reduction techniques were used (e.g., Automated exposure control, adjustment of the mA and/or kV according to patient size, use of iterative reconstruction technique). COMPARISON: 08/02/2023 and prior FINDINGS: CT HEAD: Slight limitation related to lack of noncontrast coronal and sagittal reformats. Cerebrum: No definite acute territorial infarct, visible acute intracranial hemorrhage, or visible mass. Similar small remote lacunar infarcts in the RIGHT caudate, RIGHT basal ganglia and LEFT thalamus. Cerebellum/brainstem: Unremarkable. Note slight limitation due to beam hardeningartifact. Ventricles/extra-axial spaces: Similar relative ex vacuo dilatation of the RIGHTlateral ventricle.. Paranasal sinuses/mastoid air cells: Patchy opacification of the anterior ethmoid air cells, IOJA-ffookcw-gjkb-RIGHT. Mucosal thickening in the QUJI-foypysq-oiya-RIGHT frontal recesses with opacification onthe LEFT. Scalp/calvarium: Unremarkable. Other: Absence of all maxillary and most mandibular teeth with a remaining probably impacted LEFT mandibular molar. CTA HEAD: Exam slightly limited by venous contamination. Anterior circulation: Patent. Similarly hypoplastic or absent LEFT A1 segment, normal variant. Posterior circulation: Patent. Diminutive LEFT vertebral artery again essentially terminates as PICA. Redemonstrated origin of the RIGHT [facility] Aneurysms: None grossly similar saccular 5 x 4 x 3 mm aneurysm arising from the RIGHT posterior communicating artery origin laterally since 07/28/2018 allowing for the difference in modality. Venous structures: Grossly unremarkable within limits of nondedicated technique. CT/CTA Head W/WO Contrast IMPRESSION: 1. No visible acute noncontrast intracranial findings. If concern persists, recommend MRI. 2. Similar 5 mm saccular aneurysm arising from the RIGHT posterior communicatingartery origin laterally since 07/24/2018 allowing for the difference in modality. Recommend nonemergent clinical follow-up such as neurosurgical or neuro-IR consultation. 3. No high-grade stenosis or large vessel occlusion identified. 4. Frontoethmoid paranasal sinus disease. 5. Additional description as above. Reading Location: [id number] CC: Dr. Erik eSrna DO; Maryellen BECKMAN OFFICE SERVICES CLERK-C Beam ~ Cattle Farmer: Signed [facility] 02-27-2025 Discharge summary Note Date/Time February 27, 2025 6:21pm [facility] Medical Records Department [address] [place] [address] Emergency Department Summary 02/27/25 MR#: [id number] Acct: [id number] Name: DMITRY ROBERTSON Rep #:[id number] : 1970 54 From: Erik Serna DO PCP: Maryellen Christian OFFICE SERVICES CLERK-C Status:REG ER Location: ED ADDENDUM by Dr. Aguilar Jean MD on 02/27/25 at 1820 Patient endorsed to me by Dr. Erik Serna to check the CTA on this patient withknown aneurysm. I reviewed the radiology report of the CTA and there has been no significant change of the saccular aneurysm since 2018. Patient states that he does follow-up with neurosurgery, and is feeling improved and is motivated for discharge. Disposition is discharged as planned. Patient is in stable condition. 02/27/25 1820<Electronically signed by Aguilar Jean MD> Cosigner Signature (if applicable): cc: Yaseminamira [facility] OFFICE SERVICES CLERK-C Beam ~* Signed HPI History of Present Illness Chief Complaint: Headache Narrative Narrative: Patient is a 54-year-old male with past medical history of traumatic brain injury, CVA, migraine headache, subarachnoid hemorrhage, aneurysm, seizure whopresented to the emergency department chief complaint headache. According to the patient he woke up this morning and noted that he had a headache that slowlyprogressively worsened throughout the day prompting him to come here for furtherevaluation management. He states that he had vomited earlier in the day. He just states that he does not feel well overall. Denies any sick contacts [facility] Medical History TBI (traumatic brain injury) CVA (cerebral vascular accident) Endocarditis Meningitis Migraine Subarachnoid hemorrhage Home Medications ?Medication ?Instructions ?Recorded ?Last Taken ?Type lisinopril 10 mg tablet 10 mg PO DAILY #30 tabs 10/06 10/27 Unknown Rx ondansetron 4 mg disintegrating 4 mg PO Q6H PRN nausea and 02/27/25 Unknown Rx tablet vomiting #30 tabs Allergy/AdvReac Type Severity Reaction Status Date / Time No Known Allergies Allergy Verified 02/27/25 14:35 Family History Other COPD (chronic obstructive pulmonary disease) Diabetes History of blood clots Skin cancer Surgical History History of skin graft Social History Smoking Status: Current every day smoker tobacco type: e-cigarettes substance use type: marijuana ROS ROS ED ROS Narrative Constitutional: Complains of headache as noted above denies fevers or chills Eyes: Denies change in vision double vision blurry vision Cardiovascular: Denies chest pain Respiratory: Denies shortness of breath Abdomen: Denies abdominal pain nausea vomit diarrhea : Denies urinary symptoms Neurological: Denies any numbness, wheeze, tingling Musculoskeletal: Denies back pain Skin: Denies rashes or lesions EXAM Physical Exam Narrative Exam Narrative: General: Patient lying in bed rest comfortably do not appear to be in any acute distress Head: Atraumatic, normocephalic Eyes: PERRL bilaterally, EOMI bilateral, no conjunctival injection noted Neck: Soft, supple, trachea midline Cardiovascular: Regular rate and rhythm no murmurs gallops rubs noted Respiratory: Clear to auscultation bilaterally no rales rhonchi or wheezes noted Abdomen: Soft, nondistended, tender to palpation Extremities: +5/5 strength noted in the bilateral upper and lower extremities, radial pulses +2/4 in the bilateral extremities, no pedal edema on exam Neurological: Patient follow commands knew that he was at [facility] year is 2024. Patient has residual left lower extremity weakness from his previous strokes Skin: Warm, dry, tact no rashes or lesions noted Const Vital Signs: 02/27/25 14:32 02/27/25 15:55 02/27/25 16:18 Temperature 97.6 F L Temperature Source Oral Pulse Rate 73 Respiratory Rate 16 Blood Pressure 134/81 H 135/91 H Blood Pressure Mean 98 105 Pulse Ox 99 96 Oxygen Delivery Method Room Air MDM MDM MDM Narrative Medical decision making narrative: Patient is a 54-year-old male who presents to the emergency department chief complaint of headache. On the differential diagnose includes not limited to intracranial hemorrhage, migraine headache, cluster headache. Once the workup is obtained reviewed he will be reevaluated. Patient will be given IV fluids Reglan Tylenol. Patient CBC reviewed showed no evidence leukocytosis white blood count normal 10.5, he was 15.9, platelet count of 223. Patient sodium was 139, potassium normal 4.2, creatinine normal at 1.03. Patient's CTA head is still pending. Patient on reevaluation is feeling much improved. Patient case will be signed out to the oncoming provider to follow-up on CTA head. Pending this is normal patient will be discharged home see on-call provider note for ultimate details of disposition. Lab Data Labs: Laboratory Results - last 24 hr 02/27/25 15:40 WBC 10.5 RBC 5.38 Hgb 15.9 Hct 45.3 MCV 84.2 MCH 29.6 MCHC 35.1 RDW Std Deviation 41.2 RDW Coeff of Bebo 13.4 Plt Count 223 MPV 10.4 Immature Gran % (Auto) 0.600 Neut % (Auto) 84.6 H Lymph % (Auto) 9.6 L [place] % (Auto) 3.9 Eos % (Auto) 0.7 Baso % (Auto) 0.6 Absolute Neuts (auto) 8.9 H Absolute Lymphs (auto) 1.00 Nucleated RBC % 0 Sodium 139 Potassium 4.2 Chloride 103 Carbon Dioxide 22.3 Anion Gap 13 BUN 19 Creatinine 1.03 Estim Creat Clear Calc 120.44 Est GFR (MDRD) Non-Af 87 BUN/Creatinine Ratio 18.1 Glucose 139 H Calcium 9.7 Discharge Plan Triage Chief Complaint: Headache ED Provider: Erik Serna Dx/Rx/DC Orders Clinical Impression: Headache, migraine Prescriptions: New ondansetron 4 mg tablet,disintegrating 4 mg PO Q6H PRN (Reason: nausea and vomiting) Qty: 30 0RF No Action lisinopril 10 mg tablet 10 mg PO DAILY Qty: 30 5RF Primary Care Provider: Maryellen Christian Referrals: Maryellen Christian, OFFICE SERVICES CLERK-C [Primary Care Provider] - Activity Restrictions/Additional Instructions: Follow-up with your doctor in the outpatient setting. Rotate Tylenol and ibuprofen [id number] for headache control ensure that you are adequately hydrating. Use Zofran as needed for nausea this was sent to your pharmacy. When you rotate the 2 medications you can take something every 3 hours with max dose Tylenol in 24 hours 4000 mg. Max dose of ibuprofen in 24 hours 3200 mg. Return with any other concerns Print Language: Kuwaiti What to do if you have Problems For any increased pain, shortness of breath, bleeding, nausea or vomiting, chestpain, or any unexpected problems, contact your Primary Care Provider. Call [facility] ([phone]) or report to the closest Emergency Room. Call 911 if necessary. 02/27/25 1734 <Electronically signed by Erik Serna DO> Cosigner Signature (if applicable): CC: Maryellen BECKMAN OFFICE SERVICES CLERK-C Gino ~ Signed [facility] Work Phone: 1(928) 495-535103-01-2025 NoteHNO ID: [id number] Author: NAYA BUSTAMANTE APRN.NEONATAL NURSE PRACTITIONER Service: ? Author Type: Nurse Practitioner Type: Progress Notes Filed: 11/02/2024 12:56 Note Text: This note was created using Strategy Storeriter. Eddy Robertson is a 54 year old male. HPI by patient: Dmitry Robertson is a 54 year old presenting to the office with the complaint of an infected left 4th finger. Got a hangnail about 6 days ago. Associated symptoms include redness, tenderness, and some tingling. Denies fever. OTC not helping. No antibiotic use in the last 60 days. ALLERGIES No Known Allergies No family history on file. Active Ambulatory Problems Ischemic cerebrovascular accident (CVA) ([facility]) Date Noted: 07/02/2024 Resolved Ambulatory Problems No Resolved Ambulatory Problems No Additional Past Medical History Review of Systems Constitutional: Negative. HENT: Negative. Eyes: Negative. Respiratory: Negative. Cardiovascular: Negative. Gastrointestinal: Negative. Endocrine: Negative. Genitourinary: Negative. Musculoskeletal: Negative. Skin: Positive for wound. Neurological: Negative. Objective BP 107/69 Pulse 68 Temp 36.7 ?C (98 ?F) (Tympanic) Wt 128.6 kg (283 lb 8.2 oz) SpO2 97% Physical Exam Vitals reviewed. Constitutional: General: He is not in acute distress. Appearance: He is not ill-appearing, toxic-appearing or diaphoretic. Pulmonary: Effort: Pulmonary effort is normal. Skin: Findings: Erythema (erythema and swelling to the left 4th finger aroundt he nail bed, no fluctuance, no streaking) present. Neurological: Mental Status: He is alert. Psychiatric: Behavior: Behavior is cooperative. Assessment and Plan (L08.9) Finger infection (primary encounter diagnosis) Plan: cefADROxil (DURICEF) 500 mg capsule, mupirocin (BACTROBAN) 2 % ointment -Duricef and mupirocin. -Keep area clean and dry. Non scented antimicrobial soap and water. -May soak with epsom salt 3 times a day with warm water in 20 minute intervals. -Do not pick at the site. This can lead to a secondary infection. -Signs of worsening infection: increased in size, streaking up or down the skin, fever of 101 F or higher, or copious drainage from the site. -If no improvement please follow up in 3-5 days with primary care. -Be seen immediately or go to the ER with worsening symptoms. The patient will pursue further outpatient evaluation with the primary care physician or another Urgent Care/Express Care as outlined in the after visit summary. The patient is agreeable to this plan of care and follow-up instructions have been explained in detail. The patient has received these instructions in written format and have expressed an understanding of the after visit summary. Medical Decision Making: Level: 4 - Moderate I spent a total of 20 minutes on the date of the service which included preparing to see the patient, pbdy-en-hcyl patient care, completing clinical documentation, obtaining and/or reviewing separately obtained history, performing a medically appropriate examination, counseling and educating the patient/family/caregiver, and ordering medications, tests, or procedures. [facility]03-01-2025 History of Present illness Narrative* Naya Bustamante APRN.[facility] - 11/02/2024 12:38 PM EST This note was created using [email or web address]. Subjective Dmitry Robertson is a 54 year old male. HPI by patient: Dmitry Robertson is a 54 year old presenting to the office with the complaint of an infected left 4th finger. Got a hangnail about 6 days ago. Associated symptoms include redness, tenderness, and some tingling. Denies fever. OTC not helping. No antibiotic use in the last 60 days. ALLERGIES No Known Allergies No family history on file. Active Ambulatory Problems Ischemic cerebrovascular accident (CVA) ([facility]) Date Noted: 07/02/2024 Resolved Ambulatory Problems No Resolved Ambulatory Problems No Additional Past Medical History Review of Systems Constitutional: Negative. HENT: Negative. Eyes: Negative. Respiratory: Negative. Cardiovascular: Negative. Gastrointestinal: Negative. Endocrine: Negative. Genitourinary: Negative. Musculoskeletal: Negative. Skin: Positive for wound. Neurological: Negative. Objective BP 107/69 Pulse 68 Temp 36.7 C (98 F) (Tympanic) Wt 128.6 kg (283 lb 8.2 oz) SpO2 97% Physical Exam Vitals reviewed. Constitutional: General: He is not in acute distress. Appearance: He is not ill-appearing, toxic-appearing or diaphoretic. Pulmonary: Effort: Pulmonary effort is normal. Skin: Findings: Erythema (erythema and swelling to the left 4th finger aroundt he nail bed, no fluctuance, no streaking) present. Neurological: Mental Status: He is alert. Psychiatric: Behavior: Behavior is cooperative. Assessment and Plan (L08.9) Finger infection (primary encounter diagnosis) Plan: cefADROxil (DURICEF) 500 mg capsule, mupirocin (BACTROBAN) 2 % ointment -Duricef and mupirocin. -Keep area clean and dry. Non scented antimicrobial soap and water. -May soak with epsom salt 3 times a day with warm water in 20 minute intervals. -Do not pick at the site. This can lead to a secondary infection. -Signs of worsening infection: increased in size, streaking up or down the skin, fever of 101 F or higher, or copious drainage from the site. -If no improvement please follow up in 3-5 days with primary care. -Be seen immediately or go to the ER with worsening symptoms. The patient will pursue further outpatient evaluation with the primary care physician or another Urgent Care/Express Care as outlined in the after visit summary. The patient is agreeable to this planof care and follow-up instructions have been explained in detail. The patient has received these instructions in written format and have expressed an understanding of the after visit summary. Medical Decision Making: Level: 4 - Moderate I spent a total of 20 minutes on the date of the service which included preparing to see the patient, [id number]-becf patient care, completing clinical documentation, obtaining and/or reviewing separately obtained history, performing a medically appropriate examination, counseling and educating the pat ient/family/caregiver, and ordering medications, tests, or procedures. [facility] Instructions* Patient Instructions* Naya Bustamante APRN.CNP - 11/02/2024 12:38 PM EST (L08.9) Finger infection (primary encounter diagnosis) Plan: cefADROxil (DURICEF) 500 mg capsule, mupirocin (BACTROBAN) 2 % ointment -Duricef and mupirocin. -Keep area clean and dry. Non scented antimicrobial soap and water. -May soak with epsom salt 3 times a day with warm water in 20 minute intervals. -Do not pick at the site. This can lead to a secondary infection. -Signs of worsening infection: increased in size, streaking up or down the skin, fever of 101 F or higher, or copious drainage from the site. -If no improvement please follow up in 3-5 days with primary care. -Be seen immediately or go to the ER with worsening symptoms. documented in this encounterAd[facility] Instructions* Patient Instructions* Chloé Jade PA-C - 07/02/2024 12:11 PM EDT EXPRESS CARE PATIENT INFO ACUTE SINUSITIS OVERVIEW Rhinosinusitis, or more commonly sinusitis, is the medical term for inflammation (swelling) of the lining of the sinuses and nose. The sinuses are the hollow areas within the facial bones that are connected to the nasal openings. The sinuses are lined with mucous membranes, similar to the inside ofthe nose. There are two main types of sinusitis: acute and chronic. Acute sinusitis is inflammation that lasts for less than four weeks while chronic sinusitis lasts for more than 12 weeks. Acute sinusitis is common, affecting approximately one million people per year in the [place]. ACUTE SINUSITIS CAUSES The most common cause of acute sinusitis is a viral infection associated with the common cold. Bacterial sinusitis occurs much less commonly, in only 0.5 to 2 percent of cases, usually as a complication of viral sinusitis. Because antibiotics are effective only against bacterial, and not viral, infections, most people donot need antibiotics for acute sinusitis. ACUTE SINUSITIS SYMPTOMS Symptoms of acute sinusitis include: Nasal congestion or blockage Thick, yellow to green discharge from the nose Pain in the teeth Pain or pressure in the face that is worse when bending forwards Other acute sinusitis symptoms can include fever (temperature greater than 100.4 F or 38 C), fatigue, cough, difficulty or inability to smell, ear pressure or fullness, headache, and bad breath. In most cases, these symptoms develop over the course of one day and begin to improve within seven to 10 days. DO I NEED TO BE EXAMINED? It is difficult to know if you have a viral or bacterial sinus infection initially. However, most people with a viral infection improve without treatment within seven to 10 days after symptoms begin.Bacterial sinusitis also sometimes improves without treatment, although it can also worsen and require treatment. If one or more of the following bothersome symptoms last more than seven days, an examination by a healthcare provider is recommended: Thick, yellow to green discharge from the nose Face or tooth pain, especially if it is only on one side Tenderness over the maxillary sinuses (located on the left and right side of the nose, inside the cheekbones) Symptoms that initially improve and then worsen When to seek immediate help -- If you have one or more of the following symptoms, you should seek medical attention immediately (even if symptoms have been present for less than seven days): High fever (>102.5 F or 39.2 C) Sudden, severe pain in the face or head Double vision or difficulty seeing Confusion or difficulty thinking clearly Swelling or redness around one or both eyes Stiff neck, shortness of breath ACUTE SINUSITIS TREATMENT Initial treatment of a sinus infection aims to relieve symptoms since almost everyone will improve within the first seven to 10 days. Experts recommend avoiding antibiotics during this time unless there is clear evidence of a severe bacterial infection. Initial treatment Pain relief -- Non-prescription pain medications, such as acetaminophen (eg, Tylenol ) or ibuprofen(eg, Motrin , Advil ) are recommended for pain. Nasal irrigation and saline sprays -- Rinsing the nose with a salt-water (saline) solution is called nasal irrigation or nasal lavage. Saline is also available in a standard nasal spray, although this is not as effective as using larger amounts of water in an irrigation. Nasal irrigation is particularly useful for treating drainage down the back of the throat, sneezing, nasal dryness, and congestion. The treatment helps by rinsing out allergens and irritants from thenose. Saline rinses also clean the nasal lining and can be used before applying sprays containing medications, to get a better effect from the medication. Nasal lavage with warmed saline can be performed as needed, once per day, or twice daily for increased symptoms. Nasal lavage carries few risks when performed correctly. Saline nasal sprays and irrigation kits can be purchased [id number]-ozrjgzf. Saline mixes can also be purchased or patients can make their own solution. A variety of devices, including bulb syringes, Neti pots, and bottle sprayers, may be used to perform nasal lavage; instructions for nasal lavage are provided in the table. At least 200 mL (about 3/4cup) of fluid is recommended for each nostril. Nasal decongestants -- Nasal decongestant sprays, including oxymetazoline (Afrin ) and phenylephrine (Jerrell-synephrine ) can be used to temporarily treat congestion. However, these sprays should not beused for more than two to three days due to the risk of rebound congestion (when the nose is congested constantly unless the medication is used repeatedly). Other treatments -- Other treatments for congestion, such as oral antihistamines (such as diphenhydramine/Benadryl ) or zinc supplements are not proven to improve symptoms of sinusitis and can have unwanted side effects. Medications to thin secretions (such as guaifenesin) may help to clear mucus. Secondline treatment -- If symptoms have not improved in seven to ten days, you should arrange for medical evaluation. You may need further treatment. Nasal glucocorticoids -- Nasal glucocorticoids (steroids delivered by a nasal spray) can help to reduce swelling inside the nose, usually within two to three days. These drugs have few side effects and dramatically relieve symptoms in most people. There are a number of nasal glucocorticoids available by prescription. These drugs are all effective, but differ in how frequently they must be used and how much they cost. You may need to use a nasal decongestant for a few days before starting a nasal glucocorticoid to reduce nasal swelling; this will allow the nasal glucocorticoid to reach more areas of the nasal passages Do I need an antibiotic? -- If bothersome symptoms of sinusitis persist for 10 or more days, it is possible that you have bacterial sinusitis. The need for antibiotics depends upon the severity of your symptoms. Mild symptoms -- There are two possible treatment options if you have mild sinusitis symptoms: treat with antibiotics or continue to watch and wait for one week. Watching and waiting is a reasonable option because up to 75 percent of people with bacterial sinusitis improve within one month without antibiotics. During the watch and wait period, treatments to improve symptoms are recommended. If symptoms worsen or do not improve after watching and waiting, treatment with an antibiotic is usually recommended. Treatments to relieve symptoms are recommended while using antibiotics. Moderate or severe symptoms -- Most healthcare providers will prescribe an antibiotic for moderate to severe symptoms (temperature >38.3 C or 101 F and/or severe pain that interferes with usual activities). Treatments to relieve symptoms are also recommended during antibiotic treatment. One of the least expensive and most effective antibiotics for sinusitis is amoxicillin. An alternate antibiotic will be prescribed if you are allergic to penicillin. Regardless of which antibiotic isprescribed, it is important to follow the dosing instructions carefully and to finish the entire course of treatment. Taking the medication less often than prescribed or stopping the medication earlycan lead to complications, such as a recurrent infection. What if I do not improve with treatment? -- If you do not improve or worsen after a course of antibiotics, you should be re-examined. In some cases, symptoms of sinusitis improve but then recur. This is usually because the infection was not completely eliminated by the antibiotic. An alternate antibiotic, extended antibiotic treatment, and/or further testing may be recommended, depending upon your individual situation. documented in this encounterAd[facility]-29-[facility]24 NoteHNO ID: [id number] Author: CHLOÉ JADE PA-C Service: ? Author Type: Physician Braze Operator Type: Progress Notes Filed: 07/02/2024 12:16 Note Text: Eddy Robertson is a 54 year old male with a past medical history of CVA and epilepsy who presents to [facility] care today for evaluation of nasal congestion, sinus pressure, sinus pain, and headaches x 3 days. No fevers. Review of Systems Constitutional: Negative for chills, diaphoresis and fever. HENT: Positive for congestion, ear pain, sinus pressure, sinus pain and sore throat. Facial swelling: right. Eyes: Negative for discharge and redness. Respiratory: Negative for cough and shortness of breath. Skin: Negative for rash and wound. Neurological: Positive for headaches. Negative for weakness. All other systems reviewed and are negative. Objective There were no vitals taken for this visit. Physical Exam Vitals reviewed. Constitutional: General: He is not in acute distress. Appearance: Normal appearance. He is normal weight. He is not ill-appearing or toxic-appearing. Comments: The patient appears to be non-toxic, in no acute distress, and resting comfortably on the table. HENT: Head: Normocephalic and atraumatic. Right Ear: Tympanic membrane, ear canal and external ear normal. Left Ear: Tympanic membrane, ear canal and external ear normal. Nose: Congestion present. Mouth/Throat: Mouth: Mucous membranes are moist. Pharynx: Oropharynx is clear. Posterior oropharyngeal erythema present. No oropharyngeal exudate. Eyes: Extraocular Movements: Extraocular movements intact. Cardiovascular: Rate and Rhythm: Normal rate and regular rhythm. Heart sounds: Normal heart sounds. No murmur heard. No friction rub. No gallop. Pulmonary: Effort: Pulmonary effort is normal. No respiratory distress. Breath sounds: Normal breath sounds. No wheezing. Musculoskeletal: General: Normal range of motion. Cervical back: Normal range of motion. Skin: General: Skin is warm and dry. Findings: No erythema or rash. Neurological: General: No focal deficit present. Mental Status: He is alert and oriented to person, place, and time. Mental status is at baseline. Psychiatric: Mood and Affect: Mood normal. Behavior: Behavior normal. Thought Content: Thought content normal. Assessment and Plan Suspect patient symptoms are due to viral sinusitis. Patient counseled regarding suspected diagnosis and given prescriptions for Sudafed, Flonase, and prednisone. Advised to follow-up with primary care as needed for any new or worsening symptoms. ASSESSMENT/PLAN: 1. Viral sinusitis - ICD9: 473.9, 079.99, ICD10: J32.9, B97.89 (primary diagnosis) - Discussed viral etiology and rationale for treatment. - Symptomatic treatment with prn analgesia - Supportive care with fluids and rest - PSEUDOEPHEDRINE 30 MG TABLET - FLUTICASONE PROPIONATE 50 MCG/ACTUATION NASAL SPRAY,SUSPENSION - PREDNISONE 10 MG TABLET 2. Sinus pressure - ICD9: 478.19, ICD10: J34.89 - PSEUDOEPHEDRINE 30 MG TABLET - FLUTICASONE PROPIONATE 50 MCG/ACTUATION NASAL SPRAY,SUSPENSION - PREDNISONE 10 MG TABLET 3. Headaches - ICD9: 784.0, ICD10: R51.9 4. Right ear pain - ICD9: 388.70, ICD10: H92.01 Medical Decision Making: Problems: Low: Acute, uncomplicated illness or injury Risk: Minimal: Minimal risk from testing/treatment Moderate: Drug management Medical Decision Making Level: 3 - Low I spent a total of 20 minutes on the date of the service which included preparing to see the patient, [id number] patient care, completing clinical documentation, performing a medically appropriate examination, counseling and educating the patient/family/caregiver, and ordering medications, tests, or procedures. [facility] History of Present illness Narrative* Chloé Jade PA-C - 07/02/2024 11:58 AM EDT Eddy Robertson is a 54 year old male with a past medical history of CVA and epilepsy who presents to [facility] care today for evaluation of nasal congestion, sinus pressure, sinus pain, and headaches x 3days. No fevers. Review of Systems Constitutional: Negative for chills, diaphoresis and fever. HENT: Positive for congestion, ear pain, sinus pressure, sinus pain and sore throat. Facial swelling: right. Eyes: Negative for discharge and redness. Respiratory: Negative for cough and shortness of breath. Skin: Negative for rash and wound. Neurological: Positive for headaches. Negative for weakness. All other systems reviewed and are negative. Objective There were no vitals taken for this visit. Physical Exam Vitals reviewed. Constitutional: General: He is not in acute distress. Appearance: Normal appearance. He is normal weight. He is not ill-appearing or toxic-appearing. Comments: The patient appears to be non-toxic, in no acute distress, and resting comfortably on thetable. HENT: Head: Normocephalic and atraumatic. Right Ear: Tympanic membrane, ear canal and external ear normal. Left Ear: Tympanic membrane, ear canal and external ear normal. Nose: Congestion present. Mouth/Throat: Mouth: Mucous membranes are moist. Pharynx: Oropharynx is clear. Posterior oropharyngeal erythema present. No oropharyngeal exudate. Eyes: Extraocular Movements: Extraocular movements intact. Cardiovascular: Rate and Rhythm: Normal rate and regular rhythm. Heart sounds: Normal heart sounds. No murmur heard. No friction rub. No gallop. Pulmonary: Effort: Pulmonary effort is normal. No respiratory distress. Breath sounds: Normal breath sounds. No wheezing. Musculoskeletal: General: Normal range of motion. Cervical back: Normal range of motion. Skin: General: Skin is warm and dry. Findings: No erythema or rash. Neurological: General: No focal deficit present. Mental Status: He is alert and oriented to person, place, and time. Mental status is at baseline. Psychiatric: Mood and Affect: Mood normal. Behavior: Behavior normal. Thought Content: Thought content normal. Assessment and Plan Suspect patient symptoms are due to viral sinusitis. Patient counseled regarding suspected diagnosis and given prescriptions for Sudafed, Flonase, and prednisone. Advised to follow-up with primary care as needed for any new or worsening symptoms. ASSESSMENT/PLAN: 1. Viral sinusitis - ICD9: 473.9, 079.99, ICD10: J32.9, B97.89 (primary diagnosis) - Discussed viral etiology and rationale for treatment. - Symptomatic treatment with prn analgesia - Supportive care with fluids and rest - PSEUDOEPHEDRINE 30 MG TABLET - FLUTICASONE PROPIONATE 50 MCG/ACTUATION NASAL SPRAY,SUSPENSION - PREDNISONE 10 MG TABLET 2. Sinus pressure - ICD9: 478.19, ICD10: J34.89 - PSEUDOEPHEDRINE 30 MG TABLET - FLUTICASONE PROPIONATE 50 MCG/ACTUATION NASAL SPRAY,SUSPENSION - PREDNISONE 10 MG TABLET 3. Headaches - ICD9: 784.0, ICD10: R51.9 4. Right ear pain - ICD9: 388.70, ICD10: H92.01 Medical Decision Making: Problems: Low: Acute, uncomplicated illness or injury Risk: Minimal: Minimal risk from testing/treatment Moderate: Drug management Medical Decision Making Level: 3 - Low I spent a total of 20 minutes on the date of the service which included preparing to see the patient, [id number] patient care, completing clinical documentation, performing a medically appropriate examination, counseling and educating the patient/family/caregiver, and ordering medications, tests,or procedures. Chloé Jade PA-C documented in this encounterAd[facility]11-09-2023 Miscellaneous Notes* Telephone Encounter - Judy Moreno LPN - 07/13/2023 3:22 PM EST ----- Message from Howie Nuñez Jr., MD sent at 07/13/2023 2:51 PM EST ----- Pt should follow up with PCP for low Vit D. Phone call placed patient's listed on chart Claudette ellie meeks to review results. Patient's reported patient is not interested in taking a vitamin D supplement, PCP reported Fernando Bunch, chart updated to reflect. Vitamin D lab results faxed to Julianne Bunch [phone]. Judy Moreno LPN documented in this encounterAdams [facility]11-08-2023 History of Present illness Narrative* Howie Nuñez Jr., MD - 07/12/2023 10:21 AM EST 07/12/2023 PROMIS Global Health Physical Health Summary Physical health: Everyday physical activity, ability: Mostly Fatigue: Moderate Pain level: 3 General health: Good Social activities/roles, ability: Good Physical Health T-Score Physical Health Percentile PROMIS Global Health Mental Health Summary Quality of life: Good Mental health (mood,thinking): Fair Social satisfaction: Good Emotional problems (anxious,depressed): Rarely Mental Health T-Score 43.5 (Good) Mental Health Percentile 26 PHQ-9 Score: 3(Minimal Depression) PHQ-9 Self-Harm: Not at all PROMIS NEUROQOL COGNITIVE FUNCTION SCORE 07/12/2023 Promis Neuroqol Cognitive Percentile 14 PROMIS PHYSICAL FUNCTION SCORE 07/12/2023 [facility] Physical Function Percentile 24* Percentiles provide an indication of how a patient's score ranks in relation to the [place] general population. > 31st percentile is within normal limits or better *< 31st percentile is at least SD worse than population, which may be clinically relevant < 16th percentile is at least 1 SD worse than population and warrants attention 07/12/2023 Sleep Apnea Probability Snores loudly: Yes Tired, fatigued or sleepy in daytime: Yes Stops breathing or choking/gasping during sleep: No High blood pressure: No Sleep Apnea Probability Score: 12 (Sleep study not recommended) * Howie Nuñez Jr., MD - 07/12/2023 10:20 AM EST 07/12/2023 PROMIS Global Health Physical Health Summary Physical health: Everyday physical activity, ability: Mostly Fatigue: Moderate Pain level: 3 General health: Good Social activities/roles, ability: Good Physical Health T-Score Physical Health Percentile PROMIS Global Health Mental Health Summary Quality of life: Good Mental health (mood,thinking): Fair Social satisfaction: Good Emotional problems (anxious,depressed): Rarely Mental Health T-Score 43.5 (Good) Mental Health Percentile 26 PHQ-9 Score: 3(Minimal Depression) PHQ-9 Self-Harm: Not at all PROMIS NEUROQOL COGNITIVE FUNCTION SCORE 07/12/2023 [facility] Neuroqol Cognitive Percentile 14 PROMIS PHYSICAL FUNCTION SCORE 07/12/2023 [facility] Physical Function Percentile 24* Percentiles provide an indication of how a patient's score ranks in relation to the [place] general population. > 31st percentile is within normal limits or better *< 31st percentile is at least SD worse than population, which may be clinically relevant < 16th percentile is at least 1 SD worse than population and warrants attention 07/12/2023 Sleep Apnea Probability Snores loudly: Yes Tired, fatigued or sleepy in daytime: Yes Stops breathing or choking/gasping during sleep: No High blood pressure: No Sleep Apnea Probability Score: 12 (Sleep study not recommended) NEW PATIENT (CONSULT) HISTORY AND PHYSICAL EXAM PRIMARY CARE PHYSICIAN: No primary care provider on file. REASON FOR CONSULT: Hot flashes REFERRING PHYSICIAN: No ref. provider found CHIEF COMPLAINT: Hot flashes HISTORY OF PRESENT ILLNESS: Dmitry Robertson is a 53 year old male, visit. with a PMH significant for DM, stroke, endocarditis in 2003, aseptic/viral meningitis 2003 and reported seizures. Headaches started following the dx of 2003. For TIA he was Rx'd ASA and statin but declined both. He also reports history of cognitive deficits since 2004 as well. Pt also with R PCOM saccular aneurysm. Also history of TBI. Some time prior to 2017, pt reports having seen my outside [facility], but those records are not available for review. Following 2019 states that he has been having hot flashes lasting 5 minutes. No provoking factor. Occur dozen times weekly. BP stable during events. States med eval completed, and unremarkable, but no records for review. Headaches occur once per week and last 2-3 days. Associated photophobia and nausea. Headaches located in the frontal and occipital area. Headaches improved following 2019. Note in records that since 2019 using marijuana regularly. Patient seen by neurology at [facility] in 11/2022 with numerous tests ordered, but does not appear that any of that testing was completed. Prior imaging and hypercoag and EEG studies performed at [facility] scanned into Epic (reports). Per , patient having recurrent strokes - total of 6. He again is not on ASA and statin. Biggest issue at this time per patient and is that he is having the hot flashes as above. States turns into a fireball, turns red, starts pouring sweat. Reports no associated cardiac symptoms. BP reported <140/90 during events. States feels like it comes out of his back. States can have a headache following event. States headaches pretty calm - maybe a bad one per month. Pt reportedly hasnot had any endocrine workup. During episodes no vision changes. 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 Lasts maybe 10 minutes. No association with eating. Symptoms mainly from the waste up. Never notices symptoms in his legs. No change in taste or smell or dry mouth. Hot flashes occur on avg 6 days per week. Does not zone out during episodes. Known history of possible seizures where pt would be standing there and suddenly get flat affect and falls. Note he is not on AED - concern was for possible absence seizures. No diarrhea. Pt adds getting car sick easier and motion sickness when playing first person shooter games. Has not seen PCP: Julianne Felton for about 2 years per pt. Last stroke 2018: pt was not doing well and was trying to get pt in truck and he was kind of thrashing and throwing up. Squad had to get him. MRI brain at that time per report did not show stroke. Double cataract surgery a year ago. Pt states no imaging in years with no one following aneurysm. SEs on VPA, Topamax, Gabapentin in the past. Does snore and acts out dreams during the night. Pt states he has no recollection of events. No dizziness or lightheadedness. REVIEW OF SYSTEMS GENERAL:No weight loss, malaise or fevers. HEENT:Negative for frequent or significant headaches, No changes in hearing or vision, no nose bleeds or other nasal problems NECK:Negative for lumps, goiter, pain and significant neck swelling RESPIRATORY: Negative for cough, wheezing or shortness of breath. CARDIOVASCULAR: See HPI. GASTROINTESTINAL: Negative for abdominal discomfort, blood in stools or black stools or change in bowel habits GENITOURINARY: No history of dysuria, frequency or incontinence MUSCULOSKELETAL: Negative for joint pain or swelling, back pain or muscle pain. NEUROLOGIC:Negative for focal numbness or weakness, headaches and dizziness or syncope, vision changes, speech/language changes, changes in gait or falls -- besides those complaints as above in HPI. SKIN:Negative for lesions, rash, and itching. PSYCHIATRIC: Not reviewed. Pt denies depression but rare anxiety (not associated with hot flashes). HEMATOLOGIC/LYMPHATIC/IMMUNOLOGIC:Negative for prolonged bleeding, bruising easily or swollen nodes. ENDOCRINE: See HPI. The remainder of the ROS was reviewed and is negative. LAB/IMAGING: Reviewed and include: Glucose (mg/dL) Date Value 07/12/2023 107 (H) BUN (mg/dL) Date Value 07/12/2023 13 Creatinine (mg/dL) Date Value 07/12/2023 1.10 Sodium (mmol/L) Date Value 07/12/2023 136 Potassium (mmol/L) Date Value 07/12/2023 4.5 Chloride (mmol/L) Date Value 07/12/2023 101 CO2 (mmol/L) Date Value 07/12/2023 26 Protein, Total (g/dL) Date Value 07/12/2023 7.8 07/12/2023 7.4 Albumin (g/dL) Date Value 07/12/2023 4.8 Calcium, Total (mg/dL) Date Value 07/12/2023 9.6 Alkaline Phosphatase (U/L) Date Value 07/12/2023 101 Bilirubin, Total (mg/dL) Date Value 07/12/2023 0.2 AST (U/L) Date Value 07/12/2023 19 ALT (U/L) Date Value 07/12/2023 22 JOSÉ (no units) Date Value 07/12/2023 Negative MEDICATIONS: No current outpatient medications HISTORIES See above. No other med hx endorsed. SOCIAL HISTORY No tobacco for past few years. No history of significant ETOH use. Use of cocaine in 80s. Marijuanaas above. FAMILY HISTORY Sister with cerebral aneurysm. Father - stroke. PHYSICAL EXAMINATION BP 133/85 Pulse 68 Wt 122 kg (269 lb) SpO2 97% GENERAL EXAM: General appearance: NAD, pleasant. HEENT: NC/AT, nasal congestion absent, no oral lesions, membranes moist. NECK: No masses, supple. Lungs: CTA bilaterally. CV: RRR nl S1, S2. No carotid bruits. Extr: No cyanosis, clubbing or edema. No evidence of fasciculations. Extremity pulses palpable and normal. Skin: Cool to touch. NEUROLOGICAL EXAM: General: Awake, alert, oriented x3 (person,place,time), speech fluent, no dysarthria; comprehension, naming, repetition intact. CN: PERRL, fundi wotj no evidence of papilledema, EOMI and without nystagmus, VFF to confrontation,facial sensation and strength are normal and symmetric, hearing is intact to finger rub bilaterally, palate and tongue movements are intact and symmetric. SCM and trapezius strength normal. Motor: Normal tone, bulk and strength (5/5) bilaterally (throughout extremities x4). Reflexes: 2/4 and symmetric, plantar stimulation is flexor. Coordination: FNF, KATHRYN, HTS intact. No tremors. Sensation: Light touch, vibration intact throughout. No evidence of neglect. Gait: Stable with normal stride and arm swing. Assessment and Plan: ASSESSMENT/PLAN: 1. Hot flashes - ICD9: 782.62, ICD10: R23.2 (primary diagnosis) 2. Nonruptured cerebral aneurysm - ICD9: 437.3, ICD10: I67.1 3. Cerebral infarction, unspecified mechanism (HCC) - ICD9: 434.91, ICD10: I63.9 4. History of seizure - ICD9: V13.89, ICD10: Z87.898 5. History of traumatic head injury - ICD9: V15.59, ICD10: Z87.828 6. Family history of stroke - ICD9: V17.1, ICD10: Z82.3 7. History of stroke - ICD9: V12.54, ICD10: Z86.73 8. History of meningitis - ICD9: V12.42, ICD10: Z86.61 9. Migraine headaches - ICD9: 346.90, ICD10: G43.909 10. Cognitive impairment - ICD9: 294.9, ICD10: R41.89 11. Snoring - ICD9: 786.09, ICD10: R06.83 12. 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 Temperature intolerance - ICD9: 780.99, ICD10: R68.89 14. Neuropathy - (NOS) - ICD9: 355.9, ICD10: G62.9 Patient with multiple complaints as above, with primary concern of patient at this time being hot flashes for which patient states he has had a medical workup with no determined etiology and thus, recommended neurology evaluation. Note that I do not have access to all prior medical records, including my own when seeing patient years ago while [facility]. Some of his chronic conditions he appears to minimize or suggests they have resolved with the regular use of medical marijuana (I.e. headaches). He reports the cognitive impairments are chronic but stable (not obvious during visit). He and his significant other report multiple strokes but when reviewing records of datesof these events, imaging studies did not show evidence of stroke (including MRI brain). Thus difficult to determine what needs further workup or follow up. Focus this visit per patient request are episodes of hot flashes and temp intolerance. Again, I do not have prior records for review. Etiology of symptoms uncertain. DDx broad at this time with considerations including: seizure given history of TBI and reported prior seizure; thyroid abnormality; other endocrine disorder such as serotonin secreting mass or pheochromocytoma (symptoms not exact butetiology still needs considered); possible lyme dz with prior tick exposure, small fiber neuropathy(denies diabetes and checking TSH, B12, SPEP), inflammatory disorder, Cardiac arrhythmia. Discussedpt workup as and plan as follows: - EPIL EEG ROUTINE - TSH BLD - JOSÉ BY IFA WITH REFLEX - SED RATE WESTERGREN - LYME AB LATE >30 DAYS SYMPTOMS - VITAMIN B12 BLOOD - T3 FREE BLD - OUTSIDE VENDOR CARDIAC OUTPATIENT EXTENDED RHYTHM RECORDING (WITHOUT TELEMETRY) - CATECHOL 24 HR URINE - METANEPHRINES 24 HR URINE - HIAA-5 QUANT 24H URINE - ZIO MONITOR In addition will evaluate for intracranial source including possible cause of seizure, and reevaluate history of stroke, and follow up on history of cerebral aneurysm for which he has not had imagingstudies in years. Plan includes: -MRI BRAIN WO -MRA BRAIN WO In addition as no recent lab work will check CMP. Note pt not wanting medications at this time. Howie Nuñez MD I spent a total of 65 minutes on the date of the service which included preparing to see the patient, [id number] patient care, completing clinical documentation, obtaining and/or reviewing separately obtained history, performing a medically appropriate examination, counseling and educating the pat ient/family/caregiver, ordering medications, tests, or procedures, and communicating results to thepatient/family/caregiver. documented in this encounterAd[facility]09-13-2023 Miscellaneous Notes* Telephone Encounter - Yelitza Chicas - 05/17/2023 10:56 AM EDT Patient signed request to release medical records from [facility]. Form faxed to [phone] Yelitza Chicas documented in this encounterHol[facility] noteNo assessment information availableWBrecksville [facility] Work Phone: Evaluation note* Diagnosis Hot flashes- Primary Symptomatic menopausal or female climacteric states Nonruptured cerebral aneurysm Cerebral aneurysm, nonruptured Cerebral infarction, unspecified mechanism (HCC) History of seizure Personal history of other disorders of nervous system and sense organs History of traumatic head injury Family history of stroke Family history of stroke (cerebrovascular) History of stroke Transient ischemic attack (TIA), and cerebral infarction without residual deficits History of meningitis Personal history of infections of the central nervous system Migraine headaches Cognitive impairment Unspecified persistent mental disorders due to conditions classified elsewhere Snoring Other dyspnea and respiratory abnormality REM behavioral disorder REM sleep behavior disorder Temperature intolerance Other general symptoms Neuropathy - (NOS) Vitamin D deficiency Unspecified vitamin D deficiency documented in this encounter [facility] [place] [facility]* Diagnosis Viral sinusitis- Primary Unspecified sinusitis (chronic) Sinus pressure Other diseases of nasal cavity and sinuses Headaches Right ear pain Otalgia, unspecified [facility] Diagnosis Finger infection- Primary Unspecified local infection of skin and subcutaneous tissue documented in this encounter [facility]* Diagnosis Headaches- Primary [facility] Additional Instructions Follow-up with your doctor in the outpatient setting. Rotate Tylenol and ibuprofen [id number] for headache control ensure that you are adequately hydrating. Use Zofran as needed for nausea this was sent to your pharmacy. When you rotate the 2 medications you can take something every 3 hours with max dose Tylenol in 24 hours 4000 mg. Max dose of ibuprofen in 24 hours 3200 mg. Return with any other concernsWBrecksville [facility] Work Phone: Reason for referral (narrative)* Outpatient Procedure (Routine) - Pending Review Specialty Diagnoses / Procedures Referred By Kev tabares Referred To Contact [facility] Diagnoses Hot flashes History of seizure History of traumatic head injury History of stroke History of meningitis Procedures EPIL EEG ROUTINE ELECTROENCEPHALOGRAM REC COMA/SLEEP ONLY Howie Nuñez Jr., MD [address] [facility] [address] [place] [address] Neu[facility] [place] [address] [place] [address] Referral ID Status Reason Start Date Expiration Date Visits Requested Visits Authorized [id number] Pending Review Auto-Generat ed Referral 07/12/2023 07/12/2024 1 1 * MRI/CT (Routine) - Pending Review Specialty Diagnoses / Procedures Referred By Kev tabares Referred To Contact MR IMAGING Diagnoses Nonruptured cerebral aneurysm Procedures MRA BRAIN WO IVCON MRA, HEAD W/O CONTRAST Howie Nuñez Jr., MD [address] [facility] [address] [place] [address] Mr Imaging [facility] Referral ID Status Reason Start Date Expiration Date Visits Requested Visits Authorized [id number] Pending Review Auto-Generat ed Referral 07/12/2023 08/10/2024 1 1 * MRI/CT (Routine) - Pending Review Specialty Diagnoses / Procedures Referred By Contac t Referred To Contact MR IMAGING Diagnoses Nonruptured cerebral aneurysm Cerebral infarction, unspecified mechanism (HCC) Procedures MRI BRAIN WO IVCON MRI BRAIN BRAIN STEM W/O CONTRAST MATERIAL Howie Nuñez Jr., MD [address] [place] [address] [place] [address] Referral ID Status Reason Start Date Expiration Date Visits Requested Visits Authorized [id number] Pending Review Auto-Generat ed Referral 07/12/2023 08/10/2024 1 1 [facility] for referral (narrative)No reason for referral information availableWBrecksville [facility] Work Phone: Summary Purpose Family History Relationship Condition Age at Onset Recorded Date/T alex Unknown Family History?No pe rtinent history Unknown May 14, 2015 2:51pm Family History?No pe rtinent history Unknown May 14, 2015 2:51pm Relationship Condition Age at Onset Recorded Date/T alex Not Specified History of blood clots Unknown Malignant neoplasm of skin Unknown Diabetes mellitus Unknown Chronic obstructive pulmonary disease Unk nown Advance Directives Advance Directive Response Recorded Date/ Time Advance Directives No May 1:12pm Living Will No May 14, 2015 1:12pm Power of Treating Plant Supervisor No May 1:12pm Advance Directive Response Recorded Date/ Time Advance Directives No May 12:12pm Living Will No May 14, 2015 12:12pm Power of Treating Plant Supervisor No May 12:12pm Advance Directive Response Recorded Date/ Time Advance Directives No May 1:12pm Advance Directive Response Recorded Date/ Time Do you have a Healthcare Power of Treating Plant Supervisor? No February 27, 2025 2:52pm Advance Directives No May 1:12pm Chief Complaint and Reason for Visit Chief Complaint PAIN IN R HIP R HIP AND SCIATICA PN/RX HERE Chief Complaint DEMENTIA,HX VIRAL ME NINGITIS & CVA, EPILEPSY Chief Complaint Admit Date headache, February 27, 2025 2:31 pm Chief Complaint Admit Date headache, February 27, 2025 2:31 pm NEED ORDER March 11, 2025 10:02 am Chief Complaint Admit Date headache, February 27, 2025 2:31 pm NEED ORDER March 11, 2025 10:02 am MIGRAINES April 01, 2025 1:57 pm Chief Complaint Admit Date headache, February 27, 2025 2:31 pm NEED ORDER March 11, 2025 10:02 am MIGRAINES April 01, 2025 1:57 pm LLQ PAIN (URGENT) April 16, 2025 3: 50pm Additional Source Comments (unrecognized sect ion and content) No Status Records FoundNo Status Records FoundNo Status Records FoundNo Status Records FoundNo Status Records Found INFORMATION SOURCE (unrecogn ized section and content) DATE CREATED AUTHOR 02/26/2018 [facility] DATE CREATED AUTHOR AUTHOR'S ORGANIZ ATION 09/21/2021 [facility] DATE CREATED AUTHOR AUTHOR'S ORGANIZ ATION 07/16/2023 [facility] DATE CREATED AUTHOR AUTHOR'S ORGANIZ ATION 11/04/2024 [facility] DATE CREATED AUTHOR AUTHOR'S ORGANIZ ATION 04/27/2025 [facility] Goals (unrecognized section and content) Goals may be documented in a n alternate sectionGoals may be documented in an alternate sectionGoals may be documented in an alternate sectionGoals may be documented in an alternate sectionGoals may be documented in an alternate sectionGoals may be documented in an alternate sectionGoals may be documented in an alternate sectionGoals may be documented in an alternate section Source Comments (unrecognize d section and content) In the event this informatio n is protected by the Federal Confidentiality of Alcohol and Drug Abuse Patient Records regulations: The Federal rules restrict any use of the information to criminally investigate or prosecute any alcohol or drug abuse patient.[facility] ClinicIn the event this information is protected by the Federal Confidentiality of Alcohol and Drug Abuse Patient Records regulations: The Federal rules restrict any use of the information to criminally investigate or prosecute any alcohol or drug abuse patient.[facility] CenterIn the event this information is protected by the Federal Confidentiality of Alcohol and Drug Abuse Patient Records regulations: The Federal rules restrict any use of the information to criminally investigate or prosecute any alcohol or drug abuse patient.[facility] CenterIn the event this information is protected by the Federal Confidentiality of Alcohol and Drug Abuse Patient Records regulations: The Federal rules restrict any use of the information to criminally investigate or prosecute any alcohol or drug abuse patient.[facility] CenterIn the event this information is protected by the Federal Confidentiality of Alcohol and Drug Abuse Patient Records regulations: The Federal rules restrict any use of the information to criminally investigate or prosecute any alcohol or drug abuse patient.[facility] CenterIn the event this information is protected by the Federal Confidentiality of Alcohol and Drug Abuse Patient Records regulations: The Federal rules restrict any use of the information to criminally investigate or prosecute any alcohol or drug abuse patient.[facility] CenterIn the event this information is protected by the Federal Confidentiality of Alcohol and Drug Abuse Patient Records regulations: The Federal rules restrict any use of the information to criminally investigate or prosecute any alcohol or drug abuse patient.[facility] Reason for Visit (unrecogniz ed section and content) Reason Comments Request Outside Medical Records Reason Comments Results Reason Comments New Patient Re establish care Reason Comments Viral Syndrome Sinus pressure and h eadache started 3 days ago Reason Comments Infection Left ring finger, re dness, drainage, pain x 4 days Reason Comments Future Appointment [place] Any Care Teams (unrecognized sec tion and content) Job Spotter Relationship Specialty Start Date End Date [facility], Julianne Bunch [address] [place] [address] PCP - General 07/13/23 Team Status: Active Member Role Status Dates [facility] Family Provider Active [facility] Primary Care Provider A ctive Team Status: Inactive Member Role Status Dates [facility] Primary Care Provider A ctive Dr. Maximilian Philippe MD Attending Provider Active Job Spotter Relationship Specialty Start Date End Date Julianne Correa PCP - General 07/13/23 Job Spotter Relationship Specialty Start Date [facility] - [facility]23 Team Status: Active Member Role Status Dates [facility] Family Provider Active Zebulun Beam VSC, OFFICE SERVICES CLERK-C Primary Care Provider Active Team Status: Inactive Member Role Status Dates Zebulun Beam VSC, OFFICE SERVICES CLERK-C Primary Care Provider Active Start: February 19, 2025 End: February 19, 2025 Zebulun Beam VSC, OFFICE SERVICES CLERK-C Attending Provider Active Start: February 19, 2025 End: February 19, 2025 Team Status: Active Member Role Status Dates Zebulun Beam VSC, OFFICE SERVICES CLERK-C Primary Care Provider Active Team Status: Inactive Member Role Status Dates Zebulun Beam VSC, OFFICE SERVICES CLERK-C Primary Care Provider Active Start: February 27, 2025 End: February 27, 2025 Dr. Erik Serna DO Referring Provider Active Start: February 27, 2025 End: February 27, 2025 Dr. Erik Serna DO Emergency Provider Active Start: February 27, 2025 End: February 27, 2025 Team Status: Active Member Role/Relationship Status Dates Zebulun Beam VSC, OFFICE SERVICES CLERK-C Primary Care Provider Active Team Status: Inactive Member Role/Relationship Status Dates Zebulun Beam VSC, OFFICE SERVICES CLERK-C Primary Care Provider Active Start: February 19, 2025 End: February 19, 2025 Zebulun Beam VSC, OFFICE SERVICES CLERK-C Attending Provider Active Start: February 19, 2025 End: February 19, 2025 Team Status: Inactive Member Role/Relationship Status Dates Zebulun Beam VSC, OFFICE SERVICES CLERK-C Primary Care Provider Active Start: February 27, 2025 End: February 27, 2025 Dr. Erik Serna DO Attending Provider Active Start: February 27, 2025 End: February 27, 2025 Dr. Erik Serna DO Referring Provider Active Start: February 27, 2025 End: February 27, 2025 Dr. Erik Serna DO Emergency Provider Active Start: February 27, 2025 End: February 27, 2025 Team Status: Inactive Member Role/Relationship Status Dates Zebulun Beam VSC, OFFICE SERVICES CLERK-C Primary Care Provider Active Start: March 11, 2025 End: March 11, 2025 Zebulun Beam VSC, OFFICE SERVICES CLERK-C Attending Provider Active Start: March 11, 2025 End: March 11, 2025 Zebulun Beam VSC, OFFICE SERVICES CLERK-C Referring Provider Active Start: March 11, 2025 End: March 11, 2025 Job Spotter Relationship Specialty Start Date End Date ClinicJulianne PCP - General 07/13/23 Gino Juanesperanza OFFICE SERVICES CLERK [address] [id number] [facility] 04/07/25 Team Status: Inactive Member Role/Relationship Status Dates Zebulun Beam VSC, OFFICE SERVICES CLERK-C Primary Care Provider Active Start: April 01, 2025 End: April 01, 2025 Zebulun Beam VSC, OFFICE SERVICES CLERK-C Attending Provider Active Start: April 01, 2025 End: April 01, 2025 Zebulun Beam VSC, OFFICE SERVICES CLERK-C Referring Provider Active Start: April 01, 2025 End: April 01, 2025 Team Status: Inactive Member Role/Relationship Status Dates Zebulun Beam VSC, OFFICE SERVICES CLERK-C Primary Care Provider Active Start: April 16, 2025 End: April 16, 2025 Zebulun Beam VSC, OFFICE SERVICES CLERK-C Attending Provider Active Start: April 16, 2025 End: April 16, 2025 Zebulun Beam VSC, OFFICE SERVICES CLERK-C Referring Provider Active Start: April 16, 2025 End: April 16, 2025 Job Spotter Relationship Specialty Start Date End Date Julianne Correa PCP - General 07/13/23 Maryellen Christian OFFICE SERVICES CLERK [address] [id number] [facility] 04/07/25 FOR RECORDS PERTAINING TO PATIENTS WHO ARE OR HAVE BEEN ENROLLED IN A CHEMICAL DEPENDENCY/SUBSTANCEABUSE PROGRAM, SOME INFORMATION MAY BE OMITTED. This clinical summary was aggregated from multiple sources. Caution should be exercised in using it in the provision of clinical care. This summary normalizes information from multiple sources, and as a consequence, information in this document may materially change the coding, format and clinical context of patient data. In addition, data may be omitted in some cases. CLINICAL DECISIONS SHOULD BE BASED ON THE PRIMARY CLINICAL RECORDS. [facility]. provides no warranty or guarantee of the accuracy or completeness of information in this document.
--- NOTE | 2025-05-01 07:46 | CT_ITS ---
PROCEDURE: CHEST WITHOUT CONTRAST 05/01/2025 REASON FOR EXAM: PULMONARY NODULES NOTES ON CT ABD, OTHER DISORDERS OF LUNG TECHNIQUE: Chest CT without contrast. Coronal and Sagittal reconstruction series were provided. One or more dose reduction techniques were used (e.g., Automated exposure control, adjustment of the mA and/or kV according to patient size, use of iterative reconstruction technique RADIATION DOSE SUMMARY: CTDlvol: 19.8 mGy DLP: 826.53 mGycm COMPARISON: Prior study dated May 21, 2018. FINDINGS: Hardware: None Lymph nodes: Small benign-appearing bilateral axillary lymph nodes. Calcified left hilar lymph nodes. Calcified right hilar lymph nodes. Heart and Vasculature: The heart is nonenlarged. Mild atherosclerotic plaque formation of the aortic arch and descending thoracic aorta. Coronary Artery Calcifications: Present Lungs and Airways: Scattered bilateral calcified granulomas. Pleura: No pleural effusion. Upper Abdomen: Diffuse fatty infiltration of the liver. Scattered calcified granulomas in the spleen. Bones: Unremarkable CT/Chest without Contrast IMPRESSION: Coronary artery calcification (CAC) is is present Scattered calcified granulomas in both lungs. Calcified bilateral hilar lymph nodes. Reading Location: [id number]
--- NOTE | 2025-05-05 14:31 | STRESSREP ---
Stress Test Report Exercise myocardial perfusion stress test. 55-year-old man with a history of dyspnea. Stress protocol: Resting EKG demonstrates normal sinus rhythm with a rate of 67 bpm resting blood pressure is 136/80 mmHg. The patient exercised according to the regular Cooper protocol for a total duration of 4 minutes and 36sec attaining a maximum heart rate of 140 bpm which was 102% of maximum predicted heart rate; the maximum workload was 7 metabolic equivalents. At rest there were no ST or T wave changes noted to suggest ischemia and at peak exercise upsloping ST changes only were noted which did not meet the criteria for ischemia. No clinical angina was noted the test was terminated due to the target heart rate being achieved/fatigue. The peak blood pressure was 152/74 mmHg. Rate-pressure product was 16,800. Myocardial perfusion protocol. 14 mCi of technetium 99m sestamibi was injected at rest. The patient exercised according to regular Cooper protocol for total duration of 4 minutes and 36sec and at peak exercise 44 mCi of technetium 99m sestamibi was injected stress images were obtained stress and rest images were reconstructed in comparing the short axis vertical long and horizontal long axis. Gated images were also obtained. Perfusion SPECT analysis: Review of the stress images demonstrate normal uptake of tracer noted in all areas of the myocardium. The resting images similarly demonstrate normal uptake of tracer noted in all areas of the myocardium. No areas of reversibility are noted to suggest ischemia no previous infarct was noted. Gated SPECT analysis: The gated ejection fraction is [68]%. Conclusion: Normal exercise myocardial perfusion stress test at a moderate workload.
== END | disposition home or self-care (01) ==
DX: R06.00 Dyspnea, unspecified (principal); J98.4 Other disorders of lung
CPT/HCPCS: 71250; 78452; 93017; A9500; A4216